=== PATIENT | female | born 1945 | race Caucasian/White ===

== ENCOUNTER 2020-08-17 08:38 | Outpatient (REF) | payer MEDICARE, SELFPAY ==
[2020-08-17 10:09] LABS: MANUAL DIFF FLAG NO
[2020-08-17 10:16] LABS: Basophils Absolute Auto 0.1 X10*3/uL (0.0-0.2); Basophils Percent Auto 1.2 % (0-2); Eosinophils Absolute Auto 0.2 X10*3/uL (0.0-0.4); Hematocrit 36.5 % (37-47); Hemoglobin 11.8 g/dl (12.0-16.0); Imm Gran Abs Auto 0.01 X10*3/uL (0.00-0.03); Imm Gran Pct Auto 0.2 % (0.0-0.4); Lymphocytes Absolute Auto 1.7 X10*3/uL (1.2-4.9); Lymphocytes Percent Auto 33.9 % (20-40); Mean Corpuscular HGB Conc 32.3 g/dl (31.0-35.0); Mean Corpuscular Hemoglobin 30.7 pg (27.0-33.0); Mean Corpuscular Volume 95.1 fL (80-98); Mean Platelet Volume 10.4 fL (9.4-12.3); Monocytes Absolute Auto 0.3 X10*3/uL (0.1-1.2); Monocytes Percent Auto 6.5 % (2-11); Neutrophils Absolute Auto 2.7 X10*3/uL (2.0-8.3); Neutrophils Percent Auto 54.2 % (45-73); Platelet Count 192 X10*3/uL (160-400); Red Blood Count 3.84 X10*6/uL (4.20-5.50); Red Cell Distribution Width 13.5 % (11.0-16.0)
[2020-08-17 10:45] LABS: Alanine Aminotransferase 22 U/L (0-31); Albumin Level 4.2 g/dL (3.5-5.0); Alkaline Phosphatase 71 U/L (39-117); Anion Gap 13 (12-20); Aspartate Amino Transferase 25 U/L (5-31); Bilirubin Total 0.4 mg/dL (0.0-1.0); Blood Urea Nitrogen 22 mg/dL (9-16); Calcium 8.9 mg/dL (8.4-10.2); Carbon Dioxide 29 mmol/L (22-29); Chloride 104 mmol/L (96-108); Cholesterol 239 mg/dL; Estimated Glomerular Filt Rate > 60; Glucose Fasting 103 mg/dL (60-99); HDL Cholesterol 50 mg/dL; LDL Cholesterol Calculated 151 mg/dl; Potassium 4.5 mmol/l (3.3-5.1); Sodium 141 mmol/L (135-145); Total Protein 6.9 g/dL (6.5-8.0); Triglycerides 194 mg/dL
[2020-08-17 12:10] LABS: Creatinine Urine 63.84 mg/dL; Microalbumin Urine < 5.0 mg/L
== END 2020-08-17 08:39 | disposition home or self-care (01) ==
LOC: HO.LAB 08:38
PROVIDERS: PCP Internal Medicine; Visit Provider Internal Medicine
DX: E78.00 Pure hypercholesterolemia, unspecified (principal); E11.9 Type 2 diabetes mellitus without complications; R59.1 Generalized enlarged lymph nodes
CPT/HCPCS: 36415; 80053; 80061; 82043; 85025

== ENCOUNTER 2020-08-25 09:03 | Outpatient (REF) | payer MEDICARE, SELFPAY | END 2020-08-25 09:04 | disposition home or self-care (01) | LOC: HO.LAB 09:03 | PROVIDERS: PCP Internal Medicine; Visit Provider Internal Medicine | DX: Z20.828 Contact with and (suspected) exposure to other viral communicable diseases (principal) | CPT/HCPCS: 87635 ==

== ENCOUNTER 2020-11-22 10:43 | Outpatient (REF) | payer MEDICARE, SELFPAY ==
[2020-11-22 12:19] LABS: Alanine Aminotransferase 28 U/L (0-31); Albumin Level 4.5 g/dL (3.5-5.0); Alkaline Phosphatase 71 U/L (39-117); Anion Gap 14 (12-20); Aspartate Amino Transferase 28 U/L (5-31); Bilirubin Total 0.4 mg/dL (0.0-1.0); Blood Urea Nitrogen 16 mg/dL (9-16); Calcium 9.4 mg/dL (8.4-10.2); Carbon Dioxide 30 mmol/L (22-29); Chloride 102 mmol/L (96-108); Cholesterol 190 mg/dL; Estimated Glomerular Filt Rate > 60; Glucose Fasting 98 mg/dL (60-99); HDL Cholesterol 50 mg/dL; LDL Cholesterol Calculated 98 mg/dl; Potassium 5.1 mmol/l (3.3-5.1); Sodium 141 mmol/L (135-145); Total Protein 7.3 g/dL (6.5-8.0); Triglycerides 210 mg/dL
== END 2020-11-22 10:44 | disposition home or self-care (01) ==
LOC: HO.LAB 10:43
PROVIDERS: Visit Provider Internal Medicine
DX: E11.9 Type 2 diabetes mellitus without complications (principal); D64.9 Anemia, unspecified
CPT/HCPCS: 36415; 80053; 80061

== ENCOUNTER 2020-11-24 07:51 | Outpatient (REF) | payer MEDICARE, SELFPAY | END 2020-11-24 07:52 | disposition home or self-care (01) | LOC: HO.LAB 07:51 | PROVIDERS: PCP Internal Medicine; Visit Provider Internal Medicine | DX: Z20.822 Contact with and (suspected) exposure to COVID-19 (principal) | CPT/HCPCS: 36415; C9803; U0003 ==

== ENCOUNTER 2021-02-02 09:23 | Outpatient (REF) | payer MEDICARE, SELFPAY ==
[2021-02-02 12:15] LABS: SARS COV2 PCR INHOUSE NEGATIVE (Negative)
== END 2021-02-02 09:24 | disposition home or self-care (01) ==
LOC: HO.LAB 09:23
PROVIDERS: Visit Provider Internal Medicine
DX: Z20.822 Contact with and (suspected) exposure to COVID-19 (principal)
CPT/HCPCS: C9803; U0003

== ENCOUNTER 2021-03-28 07:27 | Outpatient (REF) | payer MEDICARE, SELFPAY ==
[2021-03-28 08:24] LABS: MANUAL DIFF FLAG NO
[2021-03-28 08:36] LABS: Eosinophils Absolute Auto 0.3 X10*3/uL (0.0-0.4); Eosinophils Percent Auto 6.5 % (0-4); Hemoglobin 11.5 g/dl (12.0-16.0); Imm Gran Abs Auto 0.01 X10*3/uL (0.00-0.03); Imm Gran Pct Auto 0.2 % (0.0-0.4); Immature Retic Fraction 14.7 % (3.0-15.9); Lymphocytes Absolute Auto 1.3 X10*3/uL (1.2-4.9); Lymphocytes Percent Auto 32.6 % (20-40); Mean Corpuscular HGB Conc 31.9 g/dl (31.0-35.0); Mean Corpuscular Hemoglobin 30.5 pg (27.0-33.0); Mean Corpuscular Volume 95.5 fL (80-98); Monocytes Absolute Auto 0.3 X10*3/uL (0.1-1.2); Monocytes Percent Auto 8.5 % (2-11); Neutrophils Absolute Auto 2.1 X10*3/uL (2.0-8.3); Neutrophils Percent Auto 51.2 % (45-73); Platelet Count 177 X10*3/uL (160-400); Red Blood Count 3.77 X10*6/uL (4.20-5.50); Red Cell Distribution Width 13.3 % (11.0-16.0); Retic HGB Equivalent 34.4 pg (30.0-35.0); Reticulocyte Percent 1.9 % (0.5-1.8); Reticulocytes Absolute 0.071 X10*6/uL (0.026-0.095)
[2021-03-28 08:46] LABS: Microalbum/Creatinine Ratio Ur 9.8 ug/mg cr
[2021-03-28 09:02] LABS: Alanine Aminotransferase 25 U/L (0-31); Albumin Level 4.3 g/dL (3.5-5.0); Alkaline Phosphatase 73 U/L (39-117); Anion Gap 11 (12-20); Aspartate Amino Transferase 24 U/L (5-31); Bilirubin Total 0.5 mg/dL (0.0-1.0); Blood Urea Nitrogen 14 mg/dL (9-16); Calcium 9.1 mg/dL (8.4-10.2); Carbon Dioxide 30 mmol/L (22-29); Chloride 103 mmol/L (96-108); Cholesterol 177 mg/dL; Estimated Glomerular Filt Rate > 60; Glucose Fasting 106 mg/dL (60-99); HDL Cholesterol 48 mg/dL; Iron 71 mcg/dL (30-160); LDL Cholesterol Calculated 83 mg/dl; Lactate Dehydrogenase 177 U/L (122-220); Percent Iron Saturation 20 % (15-50); Potassium 4.7 mmol/L (3.3-5.1); Sodium 139 mmol/L (135-145); Total Iron Binding Capacity 356 mcg/dL (228-428); Total Protein 7.1 g/dL (6.5-8.0); Triglycerides 230 mg/dL; Unsaturated Iron Binding 285 ug/dL
[2021-03-28 10:15] LABS: Folate 14.4 ng/mL (> or = 4.0); Vitamin B12 1208 pg/mL (200-900)
[2021-03-31 20:06] LABS: Haptoglobin 196 mg/dL (43-212)
== END 2021-03-28 07:28 | disposition home or self-care (01) ==
LOC: HO.LAB 07:27
PROVIDERS: PCP Internal Medicine; Visit Provider Internal Medicine
DX: D64.9 Anemia, unspecified (principal); E11.9 Type 2 diabetes mellitus without complications; E78.5 Hyperlipidemia, unspecified; E78.00 Pure hypercholesterolemia, unspecified
CPT/HCPCS: 36415; 80053; 80061; 82043; 82607; 82746; 83010; 83540; 83615; 85025; 85045

== ENCOUNTER → 2021-04-10 07:35 | Outpatient (REF) | payer MEDICARE, SELFPAY ==
--- NOTE | 2021-04-10 07:42 | ECG_ITS ---
Test Reason : HTN Blood Pressure : / mmHG Vent. Rate : 083 BPM Atrial Rate : 083 BPM P-R Int : 122 ms QRS Dur : 086 ms QT Int : 388 ms P-R-T Axes : 067 005 054 degrees QTc Int : 455 ms Normal sinus rhythm Normal ECG When compared with ECG of 25-NOV-2018 05:42, T wave inversion no longer evident in Inferior leads Referred By: Kristyn Pardo Electronically Signed By:SAMY GALLO MD
== END ==
LOC: HO.CARD 07:35
PROVIDERS: PCP Internal Medicine; Visit Provider Internal Medicine
DX: I10 Essential (primary) hypertension (principal)
CPT/HCPCS: 93005

== ENCOUNTER 2021-05-16 11:56 | Outpatient (REF) | payer MEDICARE, SELFPAY ==
--- NOTE | ~2021-05-16 | MM_ITS ---
EXAMINATION: MM SCREENING DIGITAL BREAST TOMOSYNTHESIS, BILATERAL CLINICAL INFORMATION: Screening. Asymptomatic. Remote prior right breast surgery. The lifetime risk of breast cancer based on the Tyrer-Cuzick Model is 4%. COMPARISON: Mammography: 09/17/2018, 07/04/2017, 06/01/2016 TECHNIQUE: Digital breast tomosynthesis is performed in both the craniocaudal and mediolateral oblique views along with computer-aided detection (CAD). Synthesized 2D images are generated from the tomosynthesis. FINDINGS: There are scattered areas of fibroglandular density (ACR BI-RADS breast composition Category b). Breast tissue composition borders on predominantly fatty. Background stromal and fibroglandular densities are stable. Again, there is some minor superficial scarring upper outer quadrant right breast. There is no developing density or interval mass or architectural abnormality or abnormal calcifications. The axilla and skin contours are unremarkable. No significant changes. MM/MM tomosynthesis screening BI IMPRESSION: No significant changes from prior exams. ASSESSMENT: BI-RADS 2: Benign RECOMMENDATION: Routine annual mammography screening. This patient's information was entered into a reminder system with a target due date for their next mammogram.
--- NOTE | ~2021-05-16 | MM_ITS ---
EXAMINATION: BONE DENSITOMETRY CLINICAL INDICATION: Osteoporosis. COMPARISON: Baseline BD dated 06/02/2007. TECHNIQUE: Using a [employer] DXA System (software version: 13.1) manufactured by [employer], dual-energy x-ray absorptiometry was performed of the lumbar spine and left hip. The images are of good technical quality. Summary results are attached. FINDINGS: AP SPINE L1-L4: Current: BMD 1.194 g/cm2, Z-score 1.5, T-score 0.1, normal, 12.2% increase from baseline (<5% change is not significant). Baseline: BMD 1.064 g/cm2. LEFT FEMUR, NECK: Current: BMD 0.826 g/cm2, Z-score 0.1, T-score -1.5, osteopenia. Baseline: BMD 0.843 g/cm2. LEFT FEMUR, TOTAL: Current: BMD 0.992 g/cm2, Z-score 1.3, T-score -0.1, normal, 5.5% increase from baseline (<5% change is not significant). Baseline: BMD 0.940 g/cm2. IDENTIFIED RISK FACTORS: Menopause, hysterectomy, osteoporosis, rheumatoid arthritis, history of fracture (adult), height loss. HISTORY OF FRACTURE: Knee. MEDICATIONS: Vitamin D. MM/XR DEXA axial skeleton IMPRESSION: 1. DIAGNOSIS: Osteopenia based on the lowest T-score value of -1.5 in the femoral neck applying World Health Organization criteria. 2. 10-YEAR FRACTURE RISK PREDICTION, FRAX: Major osteoporotic fracture (clinical spine, forearm, hip or shoulder) 12.0%. Hip fracture 2.3%. 3. Treatment Recommendations: NOF guidelines recommend consideration for treatment in postmenopausal women and men age 50 and older presenting with the following: -A hip or vertebral (clinical or morphometric) fracture. -T-score less than or equal to -2.5 at the femoral neck or spine after appropriate evaluation to exclude secondary causes. -Low bone mass at the hip or spine and a 10-year fracture probability by FRAX of greater than or equal to 3% for hip fracture or greater than or equal to 20% for major osteoporotic fracture based on the [place] adapted WHO algorithm. 4. Other Recommendations: All treatment decisions require clinical judgment and consideration of individual patient factors, including patient preferences, comorbidities, previous drug use, risk factors not captured in the FRAX model (e.g. frailty, falls, vitamin D deficiency, increased bone turnover, interval significant decline in bone density) and possible under or overestimation of fracture risk by FRAX. Additional medical evaluation for secondary cause of low bone mineral density may be appropriate. FUTURE SCAN RECOMMENDATION: People with diagnosed cases of osteoporosis or at high risk for fracture should have regular bone mineral density tests. For patients eligible for Medicare, routine testing is allowed once every 2 years. The testing frequency can be increased to one year for patients who have rapidly progressing disease, those who are receiving or discontinuing medical therapy to restore bone mass, or have additional risk factors.
== END 2021-05-16 11:57 | disposition home or self-care (01) ==
LOC: HO.MAMMO 11:56
PROVIDERS: Visit Provider Internal Medicine
DX: Z12.31 Encounter for screening mammogram for malignant neoplasm of breast (principal); Z13.820 Encounter for screening for osteoporosis; M81.0 Age-related osteoporosis without current pathological fracture; M85.80 Other specified disorders of bone density and structure, unspecified site; M06.9 Rheumatoid arthritis, unspecified; Z78.0 Asymptomatic menopausal state; Z98.890 Other specified postprocedural states; Z87.81 Personal history of (healed) traumatic fracture; Z79.899 Other long term (current) drug therapy
CPT/HCPCS: 77063; 77067; 77080

== ENCOUNTER 2021-06-05 07:42 | Outpatient (REF) | payer MEDICARE, SELFPAY | END 2021-06-05 07:43 | disposition home or self-care (01) | LOC: HO.LAB 07:42 | PROVIDERS: PCP Internal Medicine; Visit Provider Internal Medicine | DX: Z20.822 Contact with and (suspected) exposure to COVID-19 (principal) | CPT/HCPCS: C9803; U0003; U0005 ==

== ENCOUNTER 2021-07-21 07:14 | Outpatient (REF) | payer MEDICARE, SELFPAY ==
[2021-07-21 09:35] LABS: Creatinine Urine 86.93 mg/dL
[2021-07-21 10:00] LABS: Alanine Aminotransferase 28 U/L (0-31); Albumin Level 4.2 g/dL (3.5-5.0); Alkaline Phosphatase 60 U/L (39-117); Anion Gap 12 (12-20); Aspartate Amino Transferase 32 U/L (5-31); Bilirubin Total 0.5 mg/dL (0.0-1.0); Blood Urea Nitrogen 18 mg/dL (9-16); Calcium 9.2 mg/dL (8.4-10.2); Carbon Dioxide 30 mmol/L (22-29); Chloride 104 mmol/L (96-108); Cholesterol 181 mg/dL; Estimated Glomerular Filt Rate > 60; Glucose Fasting 110 mg/dL (60-99); HDL Cholesterol 55 mg/dL; LDL Cholesterol Calculated 106 mg/dl; Sodium 141 mmol/L (135-145); Total Protein 6.7 g/dL (6.5-8.0); Triglycerides 101 mg/dL
[2021-07-30 12:42] LABS: Vitamin D 25-OH, D2 <4 ng/mL; Vitamin D 25-OH, D3 49 ng/mL; Vitamin D 25-OH, Total 49 ng/mL (30-100)
== END 2021-07-21 07:15 | disposition home or self-care (01) ==
LOC: HO.LAB 07:14
PROVIDERS: PCP Internal Medicine; Visit Provider Internal Medicine
DX: E11.9 Type 2 diabetes mellitus without complications (principal); E78.5 Hyperlipidemia, unspecified; E55.9 Vitamin D deficiency, unspecified
CPT/HCPCS: 36415; 80053; 80061; 82043; 82306

== ENCOUNTER 2021-08-23 07:22 | Outpatient (REF) | payer MEDICARE, SELFPAY ==
--- NOTE | ~2021-08-23 | CT_ITS ---
EXAMINATION: CT HEAD WITHOUT CONTRAST CLINICAL INFORMATION: Headache. COMPARISON: CT brain 10/04/2015. TECHNIQUE: Contiguous axial imaging was performed from the skull base to vertex without intravenous administration of contrast. This CT examination was performed using dose optimization techniques as appropriate, variously including the following: *Automated exposure control *Adjustment of mA and/or kV according to patient size (this includes techniques or standardized protocols for targeted exams where dose is matched to indication/reason for exam; i.e. extremities or head) *Use of iterative reconstruction technique DLP: 709 mGy-cm. FINDINGS: There is no evidence of acute intracranial hemorrhage or territorial infarction. No abnormal mass effect or midline shift is seen. Monk to white matter differentiation is well preserved. No extra-axial fluid collections are identified. The ventricles are normal in size. There is no abnormal attenuation within the brain parenchyma. The osseous structures and soft tissues are normal. There is mild mucoperiosteal thickening bilateral sphenoid sinuses. The rest of the paranasal sinuses and mastoid air cells are well aerated. CT/CT head/brain wo con IMPRESSION: No acute intracranial process seen. Bilateral chronic sphenoid sinusitis.
== END 2021-08-23 07:23 | disposition home or self-care (01) ==
LOC: HO.CT 07:22
PROVIDERS: Visit Provider Internal Medicine
DX: R51.9 Headache, unspecified (principal); G81.94 Hemiplegia, unspecified affecting left nondominant side
CPT/HCPCS: 70450

== ENCOUNTER 2022-03-09 08:59 | Emergency (ER) | payer MEDICARE, SELFPAY ==
--- NOTE | ~2022-03-09 | XR_ITS ---
EXAMINATION: XR CHEST CLINICAL INFORMATION: Chest pain. COMPARISON: 01/05/2020 chest radiographs. TECHNIQUE: Frontal view of the chest was obtained. FINDINGS: No significant abnormality is noted involving the heart, lungs, mediastinum, bony thorax or soft tissues. XR/XR chest 1V IMPRESSION: No acute cardiopulmonary process.
--- NOTE | 2022-03-09 09:04 | ECG_ITS ---
Test Reason : chest pain Blood Pressure : / mmHG Vent. Rate : 091 BPM Atrial Rate : 091 BPM P-R Int : 124 ms QRS Dur : 088 ms QT Int : 362 ms P-R-T Axes : 057 -26 036 degrees QTc Int : 445 ms Normal sinus rhythm Normal ECG When compared with ECG of 10-APR-2021 07:46, No significant change was found Referred By: Generic ED Physician Electronically Signed By:SAMY GALLO MD
[2022-03-09 09:08] VITALS: BP 136/65; PULSE 91; RESP 17; TEMP 36.4; O2SAT 100; BMI 31.4
[2022-03-09 09:19] LABS: MANUAL DIFF FLAG NO
[2022-03-09 09:29] LABS: Eosinophils Absolute Auto 0.2 X10*3/uL (0.0-0.4); Eosinophils Percent Auto 3.7 % (0-4); Hematocrit 37.7 % (37.0-47.0); Hemoglobin 12.2 g/dl (12.0-16.0); Imm Gran Abs Auto 0.01 X10*3/uL (0.00-0.03); Imm Gran Pct Auto 0.2 % (0.0-0.4); Lymphocytes Absolute Auto 1.4 X10*3/uL (1.2-4.9); Lymphocytes Percent Auto 33.8 % (20-40); Mean Corpuscular HGB Conc 32.4 g/dl (31.0-35.0); Mean Corpuscular Volume 95.9 fL (80.0-98.0); Monocytes Absolute Auto 0.3 X10*3/uL (0.1-1.2); Monocytes Percent Auto 7.8 % (2-11); Neutrophils Absolute Auto 2.2 x10*3/uL (2.0-8.3); Neutrophils Percent Auto 53.5 % (45-73); Platelet Count 178 X10*3/uL (160-400); Red Blood Count 3.93 X10*6/uL (4.20-5.50); Red Cell Distribution Width 13.2 % (11.0-16.0); White Blood Count 4.1 X10*3/uL (4.8-10.8)
[2022-03-09 09:37] VITALS: BP 149/77; PULSE 89; RESP 14; TEMP 36.7; O2SAT 100
[2022-03-09 09:38] LABS: Anion Gap 12 (12-20); Blood Urea Nitrogen 14 mg/dL (9-16); Calcium 9.6 mg/dL (8.4-10.2); Carbon Dioxide 30 mmol/L (22-29); Chloride 105 mmol/L (96-108); Estimated Glomerular Filt Rate > 60; Glucose Random 104 mg/dL (60-115); Potassium 4.8 mmol/L (3.3-5.1); Sodium 142 mmol/L (135-145)
[2022-03-09 09:39] LABS: Troponin-I High Sensitivity < 3.5 ng/L (<3.5-17.0)
--- NOTE | 2022-03-09 10:32 | ED_ITS ---
HPI - General Adult General Chief complaint: General Medical Stated complaint: Chest pain/hand numbness Time Seen by Provider: 03/09/22 10:28 History of Present Illness HPI narrative: Patient is a 77-year-old female presents today with having chest pain shortness of breath generalized malaise tingling bilateral hands pain in the lower jaw patient has a history diabetes history of high cholesterol no history of ME no history of stroke does not smoke no hypertension patient claims that she has been under lot of stress. Feels very tearful. Patient is from home. No leg swelling. No history of blood clots. No coughing or congestion no upper respiratory symptoms. No diaphoresis. History of similar episodes. History depression compliant with medications Related Data Previous Rx's Medication Instructions Recorded simvastatin 80 mg tablet 80 mg PO BEDTIME #90 tab 03/16/21 lisinopril 2.5 mg tablet 2.5 mg PO DAILY #90 tab 08/24/21 metformin 500 mg tablet,extended 500 mg PO BEDTIME #90 tab 09/23/21 release 24 hr venlafaxine 50 mg tablet 50 mg PO BID #180 tab 10/17/21 blood sugar diagnostic (FreeStyle 1 strip MISCELLANEOUS BID 30 Days 10/22/21 Lite Strips) #50 strip Allergies Allergy/AdvReac Type Severity Reaction Status Date / Time naproxen [NAPROXEN] Allergy Severe ANGIOEDEMA, Verified 08/08/21 09:58 rash,swelling,SOB atorvastatin Allergy Intermediate rash Verified 08/08/21 09:58 penicillin G [Penicillin G] Allergy Intermediate RASH Verified 08/08/21 09:58 tramadol Allergy Intermediate vomiting, Verified 08/08/21 09:58 headaches Review of Systems Review of Systems: Positive tingling sensation to lower lips Positive chest pain Yes all other systems are reviewed and are negative [facility] Past Medical History Attestation statement: The following information was validated with the patient. Medical History Current mild episode of major depressive disorder Diabetes mellitus Essential hypertension Headache Left hemiplegia Normocytic anemia Osteopenia Osteoporosis Pure hypercholesterolemia Surgical History History of breast biopsy History of total abdominal hysterectomy Family History Family History Father CVD (cardiovascular disease) Mother CVD (cardiovascular disease) Maternal Aunt Breast cancer Sister Hypertension Son Asthma Son Bipolar 1 disorder Sister Diabetes Social History Social History Housing: Apartment Alcohol intake: former Patient Tobacco Use Status: Never used Tobacco Tobacco use type: Cigarette e-Cigarette/Vaping Use: Never Used Second Hand Smoke Exposure: No Advance Directives: Yes Advance Directives Information Provided: Yes Advance Directives on File: No service: No Current occupational status: retired Physical Exam ED Vital Signs: Vital Signs - 24 hr 03/09/22 09:08 03/09/22 09:37 03/09/22 11:45 Temperature 97.6 F 98.1 F Pulse Rate 91 89 80 Respiratory Rate 17 14 12 Blood Pressure 136/65 149/77 H 150/66 H Pulse Oximetry 100 100 97 BMI result Body Mass Index 31.4 Appearance: Alert. Oriented X3. No acute distress. Eyes: Pupils equal, round and reactive to light. ENT: Pharynx normal. Neck: Normal inspection. Neck supple. No lymph nodes noted. No crepitus CVS: Normal heart rate and rhythm. Pulses normal. Normal S1 and S2 Respiratory: No respiratory distress. Breath sounds normal. No Wheezing. No rales Abdomen: Soft and nontender. No rigidity. No distention. good BS x4 Skin: Skin warm and dry. Normal skin color. Normal skin turgor. Extremities: No lower extremity edema. Neurovascular intact to all extremities. No Lacerations. No Rash Neuro: Oriented X 3. No motor deficit. No sensory deficit. Moving all extermities. No slurred speech Medical Decision Making MDM Narrative Medical decision making narrative: Patient EKG showed a sinus pattern heart rate was 90 OR cures QT within normal limits is no acute ST segment elevation. She does have multiple cardiac risk factors. Her electrolytes are normal. Her troponin is less than 3.5. Will get a 2nd set of heart enzymes. No risk for pulmonary emboli. Question anxiety will go ahead and give and event. Chest x-ray showed no focal infiltrate no pneumonia no pneumothorax. 132nd set of cardiac enzymes are negative. Patient's symptoms less likely cardiac in origin more likely secondary to anxiety. The hemoglobin is normal. No evidence for anemia. Will discharge patient home. Medical Records Medical records reviewed: Yes I reviewed the patient's medical records. Lab Data Result diagrams: 03/09/22 09:14 03/09/22 09:14 Labs: Lab Results 03/09/22 03/09/22 03/09/22 Range/Units 09:14 09:14 09:14 WBC 4.1 L (4.8-10.8) X10*3/uL RBC 3.93 L (4.20-5.50) X10*6/uL Hgb 12.2 (12.0-16.0) g/dl Hct 37.7 (37.0-47.0) % MCV 95.9 (80.0-98.0) fL MCH 31.0 (27.0-33.0) pg MCHC 32.4 (31.0-35.0) g/dl RDW 13.2 (11.0-16.0) % Plt Count 178 (160-400) X10*3/uL MPV 10.0 (9.4-12.3) fL Immature Gran % (Auto) 0.2 (0.0-0.4) % Neut % (Auto) 53.5 (45-73) % Lymph % (Auto) 33.8 (20-40) % [place] % (Auto) 7.8 (2-11) % Eos % (Auto) 3.7 (0-4) % Baso % (Auto) 1.0 (0-2) % Lymph # (Auto) 1.4 (1.2-4.9) X10*3/uL [place] # (Auto) 0.3 (0.1-1.2) X10*3/uL Eos # (Auto) 0.2 (0.0-0.4) X10*3/uL Baso # (Auto) 0.0 (0.0-0.2) X10*3/uL Abs Immat Gran (auto) 0.01 (0.00-0.03) X10*3/uL Absolute Neuts (auto) 2.2 (2.0-8.3) x10*3/uL Absolute Nucleated RBC 0.000 (0.0-0.012) X10*3/uL Nucleated RBC % (auto) 0.0 (0.0-0.2) /100WBC Sodium 142 (135-145) mmol/L Potassium 4.8 (3.3-5.1) mmol/L Chloride 105 (96-108) mmol/L Carbon Dioxide 30 H (22-29) mmol/L Anion Gap 12 (12-20) BUN 14 (9-16) mg/dL Creatinine 0.77 (0.5-1.4) mg/dL Estim Creat Clear Calc 61.0 Estimated GFR > 60 Random Glucose 104 (60-115) mg/dL Calcium 9.6 (8.4-10.2) mg/dL Troponin I High Sens < 3.5 (<3.5-17.0) ng/L 03/09/22 Range/Units 13:00 WBC (4.8-10.8) X10*3/uL RBC (4.20-5.50) X10*6/uL Hgb (12.0-16.0) g/dl Hct (37.0-47.0) % MCV (80.0-98.0) fL MCH (27.0-33.0) pg MCHC (31.0-35.0) g/dl RDW (11.0-16.0) % Plt Count (160-400) X10*3/uL MPV (9.4-12.3) fL Immature Gran % (Auto) (0.0-0.4) % Neut % (Auto) (45-73) % Lymph % (Auto) (20-40) % [place] % (Auto) (2-11) % Eos % (Auto) (0-4) % Baso % (Auto) (0-2) % Lymph # (Auto) (1.2-4.9) X10*3/uL [place] # (Auto) (0.1-1.2) X10*3/uL Eos # (Auto) (0.0-0.4) X10*3/uL Baso # (Auto) (0.0-0.2) X10*3/uL Abs Immat Gran (auto) (0.00-0.03) X10*3/uL Absolute Neuts (auto) (2.0-8.3) x10*3/uL Absolute Nucleated RBC (0.0-0.012) X10*3/uL Nucleated RBC % (auto) (0.0-0.2) /100WBC Sodium (135-145) mmol/L Potassium (3.3-5.1) mmol/L Chloride (96-108) mmol/L Carbon Dioxide (22-29) mmol/L Anion Gap (12-20) BUN (9-16) mg/dL Creatinine (0.5-1.4) mg/dL Estim Creat Clear Calc Estimated GFR Random Glucose (60-115) mg/dL Calcium (8.4-10.2) mg/dL Troponin I High Sens < 3.5 (<3.5-17.0) ng/L Discharge Plan Discharge Clinical Impression: Chest pain, Anxiety Patient Disposition: Home, Self-Care Instructions: Chest Pain (DC), Anxiety (ED) Prescriptions: No Action simvastatin 80 mg tablet 80 mg PO BEDTIME Qty: 90 1RF lisinopril 2.5 mg tablet 2.5 mg PO DAILY Qty: 90 3RF metformin 500 mg tablet extended release 24 hr 500 mg PO BEDTIME Qty: 90 1RF venlafaxine 50 mg tablet 50 mg PO BID Qty: 180 3RF FreeStyle Lite Strips Strip 1 strip miscellaneous BID 30 Days Qty: 50 11RF Referrals: Briseyda Kramer MD [Primary Care Provider] -
[2022-03-09 11:45] VITALS: BP 150/66; PULSE 80; RESP 12; O2SAT 97
--- NOTE | 2022-03-09 12:03 | PC.NURSE ---
Patient reused Lorazepam IV push-patient reports she would not be able to drive home if she takes it. Provider notified.
--- NOTE | 2022-03-09 13:24 | PC.NURSE ---
Patient reports a mild headache and requesting Tylenol 650 mg-provider notified.
[2022-03-09 13:29] LABS: Troponin-I High Sensitivity < 3.5 ng/L (<3.5-17.0)
[2022-03-09 13:44] VITALS: BP 143/69; PULSE 89; RESP 16; TEMP 36.9; O2SAT 98
[2022-03-09] MEDS: Acetaminophen 325 MG TABLET 975 MG PO (13:45)
== END 2022-03-09 13:50 | disposition home or self-care (01) ==
PROVIDERS: Emergency Provider Emergency Medicine Emergency Medical Services; PCP Internal Medicine
DX: R07.9 Chest pain, unspecified (principal); F41.9 Anxiety disorder, unspecified; E11.9 Type 2 diabetes mellitus without complications; I10 Essential (primary) hypertension
CPT/HCPCS: 36415; 71045; 80048; 84484; 85025; 93005; 96374; 99284; 99285

== ENCOUNTER 2022-04-05 06:57 | Outpatient (REF) | payer MEDICARE, SELFPAY ==
[2022-04-05 11:43] LABS: Alanine Aminotransferase 25 U/L (0-31); Aspartate Amino Transferase 27 U/L (5-31); Cholesterol 174 mg/dL; HDL Cholesterol 48 mg/dL; LDL Cholesterol Calculated 89 mg/dl; Triglycerides 185 mg/dL
[2022-04-05 12:12] LABS: TSH reflex Free T4 2.13 uIU/mL (0.32-4.0); Vitamin D 25-OH Total 33.3 ng/mL (>30)
== END 2022-04-05 06:58 | disposition home or self-care (01) ==
LOC: HO.HMGCLDS 06:57
PROVIDERS: PCP Internal Medicine; Visit Provider Internal Medicine
DX: E78.5 Hyperlipidemia, unspecified (principal); M85.852 Other specified disorders of bone density and structure, left thigh; N95.9 Unspecified menopausal and perimenopausal disorder; E11.9 Type 2 diabetes mellitus without complications
CPT/HCPCS: 36415; 80061; 82306; 84443; 84450; 84460

== ENCOUNTER 2022-05-28 07:23 | Outpatient (REF) | payer MEDICARE, SELFPAY ==
--- NOTE | ~2022-05-28 | MM_ITS ---
EXAMINATION: MM SCREENING DIGITAL BREAST TOMOSYNTHESIS, BILATERAL CLINICAL INFORMATION: Screening. Asymptomatic. The lifetime risk of breast cancer based on the Tyrer-Cuzick Model is 3%. COMPARISON: Mammography: 05/16/2021, 09/17/2018, 07/04/2017 TECHNIQUE: Digital breast tomosynthesis is performed in both the craniocaudal and mediolateral oblique views along with computer-aided detection (CAD). Synthesized 2D images are generated from the tomosynthesis. FINDINGS: There are scattered areas of fibroglandular density (ACR BI-RADS breast composition Category b). There are no significant masses, abnormal calcifications, or other abnormalities. Breast tissue composition borders on predominantly fatty. Background stromal markings are normal and similar to prior exams. The axilla are unremarkable. No significant changes. MM/MM tomosynthesis screening BI IMPRESSION: No mammographic evidence of malignancy. ASSESSMENT: BI-RADS 1: Negative RECOMMENDATION: Routine annual mammography screening. This patient's information was entered into a reminder system with a target due date for their next mammogram.
== END 2022-05-28 07:24 | disposition home or self-care (01) ==
LOC: HO.MAMMO 07:23
PROVIDERS: PCP Internal Medicine; Visit Provider Internal Medicine
DX: Z12.31 Encounter for screening mammogram for malignant neoplasm of breast (principal)
CPT/HCPCS: 77063; 77067

== ENCOUNTER → 2022-06-14 07:09 | Outpatient (BNVA) | payer MEDICARE, SELFPAY | PROVIDERS: PCP Internal Medicine; Referring Provider Internal Medicine; Visit Provider Physician Assistant | DX: Z01.818 Encounter for other preprocedural examination (principal) | CPT/HCPCS: 99212; Q3014 ==

== ENCOUNTER → 2022-07-11 12:48 | Outpatient (BNVA) | payer MEDICARE, SELFPAY | PROVIDERS: PCP Internal Medicine; Referring Provider Internal Medicine; Visit Provider Internal Medicine | DX: R07.2 Precordial pain (principal); E78.5 Hyperlipidemia, unspecified; E11.9 Type 2 diabetes mellitus without complications | CPT/HCPCS: 93005; 99202 ==

== ENCOUNTER → 2022-07-31 07:42 | Outpatient (REF) | payer MEDICARE, SELFPAY ==
--- NOTE | 2022-07-31 07:45 | CA_ITS ---
Transthoracic Echocardiogram Patient (Last, First, Middle): Indira Mckeon, Gender: Female Date of : 1945 Age: 77 Procedure Date: 07/31/2022 Procedure Type: Transthoracic Echocardiogram Location: OP Height: 157.48 cm Weight: 79.38 kg BSA: 1.81 m2 Heart Rate: 70 bpm BP: 122 / 64 mmHg Senior Quality Methods Specialist: SB Referring MD: Lee Short MD Symptoms: R07.2 - Precordial pain Study Quality: Adequate w contrast ECG Rhythm: Sinus Conclusions: - The left ventricular systolic function is normal. The visually estimated ejection fraction is between 55-60%. - There is moderate septal asymmetric hypertrophy. - There is mild mitral valve regurgitation. - There is mild tricuspid valve regurgitation. Findings Procedure Information Contrast agent, definity, is being given per protocol without apparent complications. Left Ventricle Normal left ventricular cavity size. There is mildly increased left ventricular wall thickness. The left ventricular systolic function is normal. The visually estimated ejection fraction is between 55-60%. There is no evidence of regional wall motion abnormalities. Diastolic function is normal for age. There is moderate septal asymmetric hypertrophy. Right Ventricle Normal right ventricular cavity size and systolic function. Atria Both atria are normal in size. Aortic Valve There is a normal trileaflet aortic valve. There is no aortic valve stenosis. There is no aortic valve regurgitation. Mitral Valve The mitral valve appears normal. There is mild mitral valve regurgitation. There is no mitral valve stenosis. Pulmonic Valve The pulmonic valve was not well visualized. There is mild pulmonic valve regurgitation. Tricuspid Valve Normal tricuspid valve structure. There is mild tricuspid valve regurgitation. There is no evidence of pulmonary hypertension. Great Vessels The asc aorta is normal in size. Venous The inferior vena cava is normal in size and collapses greater than 50% with inspiration. Pericardium/Pleural There is no evidence of pericardial effusion. Prior Study Comparison No prior study available for comparison. Measurements 2D Linear Measurements IVSd: 1.37 0.6-0.9/0.6-1.0 cm LVIDd: 4.41 3.9-5.3/4.2-5.9 cm LVIDd Index: 2.44 2.4-3.2/2.2-3.1 cm/m2 LVIDs: 3.22 2.0-3.6 cm LVPWd: 1.05 0.7-1.1 cm LA Diam: 3.90 2.7-3.8/3.0-4.0 cm LAIDs Index: 2.15 1.5-2.3 cm/m2 LV Mass: 242.16 67-162/88-224 g LV Mass Index: 133.79 43-95/49-115 g/m2 LVOT Diam: 2.20 3.0+(-)1.3 cm 2D Systolic Function EF 4C: 55.20 >55% EF 2C: 47.90 >55% EF BiP: 53.10 >55% Mitral Valve MV Pk E: 0.58 MV PK A: 0.92 MV Decel Time: 222.00 E/A: 0.60 E'Lateral: 5.55 E'Medial: 5.22 E/E' Med: 11.20 E/E' Lat: 10.50 PHT: 65.00 MVA PHT: 3.38 Decel Clark: 2.63 Aortic Valve AoV Pk Delfino: 1.27 AoV Mn Delfino: 0.87 AoV VTI: 0.27 AoV Pk Grad: 6.00 Aov Mn Grad: 3.00 NIKA Cont.VTI: 2.71 LVOT LVOT Pk Delfino: 0.96 LVOT Mn Delfino: 0.61 LVOT VTI: 0.19 LVOT Pk Grad: 4.00 LVOT Mn Grad: 2.00 LVOT Diam: 2.20 LVOT Area: 3.80 Diastolic Function MV Pk E: 0.58 MV Pk A: 0.92 E/A: 0.60 E'Medial: 5.22 E/E' Med: 11.20 E' Laterial: 5.55 E/E' Lat: 10.50 Right Ventricle TAPSE (mm): 18.00 TVS' Delfino: 10.60 Tricuspid Valve TR Pk Delfino: 2.59 TR Pk Grad: 27.00 RA Press: 3.00 RVSP: 30.00 Great Vessels Aorta Sinus of Valsalva: 2.90 2.0-3.5 cm Ao Asc: 3.40 2.1-3.4 cm Pulmonary Veins Pulm Vein S/D 1.90 Pulmonary Valve PV Pk Delfino: 0.88 Peak PV Grad: 3.00 Updated in Other Vendor System with Status of Final Lee Short MD electronically signed on 08/01/2022 9:19:38 AM with status of Final
== END ==
LOC: HO.CARD 07:42
PROVIDERS: PCP Internal Medicine; Visit Provider Internal Medicine
DX: R07.2 Precordial pain (principal)
CPT/HCPCS: 93306; Q9957

== ENCOUNTER → 2022-09-04 12:31 | Outpatient (BNVA) | payer MEDICARE, SELFPAY | PROVIDERS: PCP Internal Medicine; Referring Provider Internal Medicine; Visit Provider Nurse Practitioner Family | DX: I42.2 Other hypertrophic cardiomyopathy (principal); R07.2 Precordial pain; E78.5 Hyperlipidemia, unspecified; I10 Essential (primary) hypertension; E11.9 Type 2 diabetes mellitus without complications | CPT/HCPCS: 99212 ==

== ENCOUNTER → 2022-09-07 07:40 | Outpatient (REF) | payer MEDICARE, SELFPAY ==
--- NOTE | ~2022-09-07 | NM_ITS ---
Exercise Myocardial perfusion study Indication: Precordial chest pain to evaluate for myocardial ischemia Technique: The patient was brought in for an exercise perfusion study on 09/07/2022. Patient performed exercise as per Ryne protocol and was injected 25 mCi of sestamibi was given intravenously one target HR was achieved. Images were obtained using the SPECT gamma camera interlaced with the gating device. Images were obtained in supine position. Resting perfusion study was performed on 09/10/2022. Patient was administered 25 mCi of sestamibi intravenously at rest. Images were then obtained in supine position. Images obtained with and without CT attenuation. Total DLP 120 mGy-cm. Images were processed with the software and compared side to side in short axis, horizontal long axis and vertical long axis views. Findings: The stress perfusion study showed non attenuated images show normal uptake of radiotracer in all segments of LV myocardium. Attenuation corrected images show mildly reduced uptake in the apex of the LV myocardium.. The gated study shows normal LV systolic function with calculated LVEF of 70%. LV cavity is normal in size. The gated study shows normal systolic wall thickening and contraction of all segments. There is no transient ischemic dilation. Resting study shows no significant change in perfusion pattern compared to stress perfusion study. Gating at rest reveals normal systolic wall motion with ejection fraction at greater than 60%. The findings are consistent with normal myocardial perfusion. NM/NM cardiolite stress test Impression: 1. Normal myocardial perfusion 2. Gated LVEF is 70% 3. Transient ischemic dilatation not present Stress EKG is negative for ischemia
--- NOTE | 2022-09-07 07:44 | CA_ITS ---
Acquisition Time: 2022-09-07 08:10:04 Total Exercise Time: 00:05:00 Test Indications: Chest Pain Medications: LISINOPRIL METFORMIN ROSUVASTATIN VENLAFAXIN Protocol: RELL Max HR: 144 BPM 99% of Pred: 145 BPM Max BP: 162/058 mmHG Max Work Load: 6.0 METS Exercise stress test with exercise 5 min of Rell protocol (last 1.5 min speed reduced to 2.2MPH), without anginal symptoms, with isolated PACs, with normotensive response to exercise, without EKG changes meeting criteria for ischemia. Nuclear images pending. Test reviewed with Dr Short Referred By: Lee Short Overread By: LYNN GUAMAN
== END ==
LOC: HO.CARD 07:40
PROVIDERS: PCP Internal Medicine; Visit Provider Internal Medicine
DX: R07.2 Precordial pain (principal)
CPT/HCPCS: 78452; 93017; A9500

== ENCOUNTER 2022-10-31 08:14 | Outpatient (REF) | payer MEDICARE, SELFPAY ==
[2022-10-31 11:39] LABS: Estimated Average Glucose 114 mg/dL; Hemoglobin A1c % 5.6 %
[2022-10-31 12:16] LABS: Creatinine Urine 102.13 mg/dL; Microalbum/Creatinine Ratio Ur 10.7 ug/mg cr
[2022-10-31 12:32] LABS: Alanine Aminotransferase 41 U/L (0-31); Anion Gap 13 (12-20); Aspartate Amino Transferase 37 U/L (5-31); Blood Urea Nitrogen 18 mg/dL (9-16); Calcium 9.4 mg/dL (8.4-10.2); Carbon Dioxide 31 mmol/L (22-29); Chloride 104 mmol/L (96-108); Cholesterol 192 mg/dL; Estimated Glomerular Filt Rate > 60; Glucose Fasting 121 mg/dL (60-99); HDL Cholesterol 56 mg/dL; LDL Cholesterol Calculated 117 mg/dl; Potassium 4.6 mmol/L (3.3-5.1); Sodium 143 mmol/L (135-145); Triglycerides 98 mg/dL
== END 2022-10-31 08:15 | disposition home or self-care (01) ==
LOC: HO.HMGCLDS 08:14
PROVIDERS: PCP Internal Medicine; Visit Provider Internal Medicine
DX: E78.5 Hyperlipidemia, unspecified (principal); I10 Essential (primary) hypertension; M85.852 Other specified disorders of bone density and structure, left thigh; N95.1 Menopausal and female climacteric states; E11.9 Type 2 diabetes mellitus without complications
CPT/HCPCS: 36415; 80048; 80061; 82043; 82306; 83036; 84450; 84460

== ENCOUNTER 2023-01-30 07:34 | Outpatient (REF) | payer MEDICARE, SELFPAY ==
[2023-01-30 12:01] LABS: Estimated Average Glucose 123 mg/dL; Hemoglobin A1c % 5.9 %
[2023-01-30 12:19] LABS: Alanine Aminotransferase 25 U/L (0-31); Anion Gap 14 (12-20); Aspartate Amino Transferase 27 U/L (5-31); Blood Urea Nitrogen 13 mg/dL (9-16); Calcium 9.4 mg/dL (8.4-10.2); Carbon Dioxide 30 mmol/L (22-29); Chloride 104 mmol/L (96-108); Cholesterol 202 mg/dL; Estimated Glomerular Filt Rate > 60; Glucose Fasting 112 mg/dL (60-99); HDL Cholesterol 48 mg/dL; LDL Cholesterol Calculated 112 mg/dl; Potassium 5.1 mmol/L (3.3-5.1); Sodium 143 mmol/L (135-145); Triglycerides 213 mg/dL
[2023-01-30 12:38] LABS: Vitamin D 25-OH Total 36.4 ng/mL (>30)
== END 2023-01-30 07:35 | disposition home or self-care (01) ==
LOC: HO.HMGCLDS 07:34
PROVIDERS: PCP Internal Medicine; Visit Provider Internal Medicine
DX: E11.9 Type 2 diabetes mellitus without complications (principal); E78.5 Hyperlipidemia, unspecified; F32.0 Major depressive disorder, single episode, mild; I10 Essential (primary) hypertension; M85.852 Other specified disorders of bone density and structure, left thigh; N95.9 Unspecified menopausal and perimenopausal disorder
CPT/HCPCS: 36415; 80048; 80061; 82306; 83036; 84450; 84460

== ENCOUNTER 2023-05-01 07:07 | Outpatient (REF) | payer MEDICARE, SELFPAY ==
[2023-05-01 11:30] LABS: Estimated Average Glucose 117 mg/dL; Hemoglobin A1c % 5.7 %
[2023-05-01 12:01] LABS: Alanine Aminotransferase 35 U/L (0-31); Anion Gap 8 (12-20); Aspartate Amino Transferase 35 U/L (5-31); Blood Urea Nitrogen 15 mg/dL (9-16); Calcium 9.5 mg/dL (8.4-10.2); Carbon Dioxide 30 mmol/L (22-29); Chloride 104 mmol/L (96-108); Cholesterol 180 mg/dL; Estimated Glomerular Filt Rate > 60; Glucose Fasting 114 mg/dL (60-99); HDL Cholesterol 46 mg/dL; LDL Cholesterol Calculated 109 mg/dl; Potassium 4.2 mmol/L (3.3-5.1); Sodium 138 mmol/L (135-145); Triglycerides 127 mg/dL
[2023-05-01 12:03] LABS: Vitamin D 25-OH Total 47.4 ng/mL (>30)
[2023-05-01 12:13] LABS: Creatinine Urine 148.33 mg/dL; Microalbum/Creatinine Ratio Ur 10.1 ug/mg cr
== END 2023-05-01 07:08 | disposition home or self-care (01) ==
LOC: HO.HMGCLDS 07:07
PROVIDERS: PCP Internal Medicine; Visit Provider Internal Medicine
DX: Z00.01 Encounter for general adult medical examination with abnormal findings (principal); E11.9 Type 2 diabetes mellitus without complications; E78.5 Hyperlipidemia, unspecified; F32.0 Major depressive disorder, single episode, mild; I10 Essential (primary) hypertension; M85.852 Other specified disorders of bone density and structure, left thigh
CPT/HCPCS: 36415; 80048; 80061; 82043; 82306; 83036; 84450; 84460

== ENCOUNTER 2023-05-29 07:28 | Outpatient (REF) | payer MEDICARE, SELFPAY ==
--- NOTE | ~2023-05-29 | MM_ITS ---
EXAMINATION: MM SCREENING DIGITAL BREAST TOMOSYNTHESIS, BILATERAL CLINICAL INFORMATION: Screening. Asymptomatic. The lifetime risk of breast cancer based on the Tyrer-Cuzick Model is 3%. COMPARISON: Mammography: 06/01/2022, 05/16/2021, and dating back to 2014. TECHNIQUE: Digital breast tomosynthesis is performed in both the craniocaudal and mediolateral oblique views along with computer-aided detection (CAD). Synthesized 2D images are generated from the tomosynthesis. FINDINGS: There are scattered areas of fibroglandular density (ACR BI-RADS breast composition Category b). There are no suspicious masses, suspicious grouped calcifications, or areas of architectural distortion. The parenchymal pattern is stable from prior exams. MM/MM tomosynthesis screening BI IMPRESSION: No mammographic evidence of malignancy. ASSESSMENT: BI-RADS BI-RADS 1 - Negative RECOMMENDATION: Routine annual mammography screening. 1 year F/U This examination should not preclude the clinical evaluation of a suspicious palpable abnormality. This patient's information was entered into a reminder system with a target due date for their next mammogram.
--- NOTE | ~2023-05-29 | MM_ITS ---
EXAMINATION: BONE DENSITOMETRY CLINICAL INDICATION: Other specified disorders of bone density and structure. COMPARISON: Previous BD dated 05/16/2021 and baseline BD dated 06/02/2007. TECHNIQUE: Using a [employer] DXA System (software version: 13.1) manufactured by [employer], dual-energy x-ray absorptiometry was performed of the lumbar spine and left hip. The images are of good technical quality. Summary results are attached. FINDINGS: AP SPINE L1-L2 (excluding L3 and L4): The data of L1-L4 has been changed to exclude the L3 and L4 vertebral bodies, because degenerative sclerosis at these levels may cause overestimation of lumbar spine density. Current: BMD 1.138 g/cm2, Z-score 1.2, T-score -0.2, normal, 2.2% increase from previous, 16.2% increase from baseline (<5% change is not significant). Prior: BMD 1.113 g/cm2. Baseline: BMD 0.979 g/cm2. LEFT FEMUR, NECK: Current: BMD 0.686 g/cm2, Z-score -0.8, T-score -2.5, osteoporosis. Prior: BMD 0.826 g/cm2. Baseline: BMD 0.843 g/cm2. LEFT FEMUR, TOTAL: Current: BMD 0.913 g/cm2, Z-score 0.8, T-score -0.7, normal, 8.0% decrease from previous, 2.9% decrease from baseline (<5% change is not significant). Prior: BMD 0.992 g/cm2. Baseline: BMD 0.940 g/cm2. IDENTIFIED RISK FACTORS: Menopause, hysterectomy, bilateral oophorectomy, renal, osteoporosis, rheumatoid arthritis, secondary osteoporosis. HISTORY OF FRACTURE: None listed. MEDICATIONS: Calcium supplements or multivitamin, vitamin D. MM/XR DEXA axial skeleton IMPRESSION: 1. DIAGNOSIS: Osteoporosis based on the lowest T-score value of -2.5 in the femoral neck applying World Health Organization criteria. 2. 10-YEAR FRACTURE RISK PREDICTION, FRAX: According to the guidelines, FRAX calculation should only be performed on patients in the osteopenia bone density category. Therefore, FRAX was not performed on this patient. 3. Treatment Recommendations: NOF guidelines recommend consideration for treatment in postmenopausal women and men age 50 and older presenting with the following: -A hip or vertebral (clinical or morphometric) fracture. -T-score less than or equal to -2.5 at the femoral neck or spine after appropriate evaluation to exclude secondary causes. -Low bone mass at the hip or spine and a 10-year fracture probability by FRAX of greater than or equal to 3% for hip fracture or greater than or equal to 20% for major osteoporotic fracture based on the [place] adapted WHO algorithm. 4. Other Recommendations: All treatment decisions require clinical judgment and consideration of individual patient factors, including patient preferences, comorbidities, previous drug use, risk factors not captured in the FRAX model (e.g. frailty, falls, vitamin D deficiency, increased bone turnover, interval significant decline in bone density) and possible under or overestimation of fracture risk by FRAX. Additional medical evaluation for secondary cause of low bone mineral density may be appropriate. FUTURE SCAN RECOMMENDATION: People with diagnosed cases of osteoporosis or at high risk for fracture should have regular bone mineral density tests. For patients eligible for Medicare, routine testing is allowed once every 2 years. The testing frequency can be increased to one year for patients who have rapidly progressing disease, those who are receiving or discontinuing medical therapy to restore bone mass, or have additional risk factors.
== END 2023-05-29 07:29 | disposition home or self-care (01) ==
LOC: HO.MAMMO 07:28
PROVIDERS: PCP Internal Medicine; Visit Provider Internal Medicine
DX: Z12.31 Encounter for screening mammogram for malignant neoplasm of breast (principal); Z13.820 Encounter for screening for osteoporosis; Z78.0 Asymptomatic menopausal state; M85.852 Other specified disorders of bone density and structure, left thigh
CPT/HCPCS: 77063; 77067; 77080

== ENCOUNTER → 2023-05-29 09:15 | Outpatient (BNV) | payer MEDICARE, SELFPAY | PROVIDERS: PCP Internal Medicine; Visit Provider Radiology Diagnostic Radiology | DX: Z12.31 Encounter for screening mammogram for malignant neoplasm of breast (principal) | CPT/HCPCS: 77063; 77067; 77080; G0279 ==

== ENCOUNTER 2023-08-07 07:00 | Outpatient (REF) | payer MEDICARE, SELFPAY ==
[2023-08-07 11:41] LABS: Estimated Average Glucose 114 mg/dL; Hemoglobin A1c % 5.6 % (<6.0)
[2023-08-07 12:07] LABS: Alanine Aminotransferase 21 U/L (0-31); Anion Gap 11 (12-20); Aspartate Amino Transferase 23 U/L (5-31); Blood Urea Nitrogen 12 mg/dL (9-16); Calcium 9.4 mg/dL (8.4-10.2); Carbon Dioxide 31 mmol/L (22-29); Chloride 104 mmol/L (96-108); Cholesterol 190 mg/dL (<200); Estimated Glomerular Filt Rate > 60; Glucose Fasting 105 mg/dL (60-99); HDL Cholesterol 52 mg/dL (>40); LDL Cholesterol Calculated 101 mg/dL (<100); Potassium 4.8 mmol/L (3.3-5.1); Sodium 141 mmol/L (135-145); Triglycerides 187 mg/dL (<150)
== END 2023-08-07 07:01 | disposition home or self-care (01) ==
LOC: HO.CHCLDS 07:00
PROVIDERS: Visit Provider Internal Medicine
DX: E11.9 Type 2 diabetes mellitus without complications (principal); E78.5 Hyperlipidemia, unspecified; I10 Essential (primary) hypertension; F32.5 Major depressive disorder, single episode, in full remission
CPT/HCPCS: 36415; 80048; 80061; 83036; 84450; 84460

== ENCOUNTER 2023-08-09 10:16 | Outpatient (AMB) | payer MEDICARE, SELFPAY ==
[2023-08-09 10:55] VITALS: BP 116/60; PULSE 90; O2SAT 99; BMI 29.8
--- NOTE | 2023-08-09 10:55 | MHC.PC.OV ---
Vital Signs 08/09/23 10:55 Height 5 ft 2 in Weight 163 lb BMI 29.8 BP 116/60 Blood Pressure Location Rt brachial Position Sitting Pulse 90 Pulse Source Pulse Oximeter Pulse Oximetry (%) 99 Oxygen Delivery Method Room Air Intake Visit Reasons: 3m follow up Intake Note: patient is here today for her 3 mo f/u Allergies naproxen [NAPROXEN] Allergy (Severe, Verified 08/09/23 11:34) ANGIOEDEMA, rash,swelling,SOB penicillin G [Penicillin G] Allergy (Intermediate, Verified 08/09/23 11:34) RASH tramadol Allergy (Intermediate, Verified 08/09/23 11:34) vomiting, headaches Medication List - Last Reconciled 08/09/23 by Briseyda Kramer MD blood sugar diagnostic (FreeStyle Lite Strips) 1 strip miscellaneous BID 30 days lisinopril 2.5 mg PO DAILY metformin ER 500 mg PO BEDTIME rosuvastatin 5 mg PO DAILY venlafaxine 75 mg PO BID Tobacco use date assessed: 08/09/23 Fall risk assessment: No Falls in past year Last assessed Fall Risk: 08/09/23 Dental Screening Dental Screen Date: 08/09/23 Did you have a dental visit in the last 12 months?: No Did you have a dental problem in the last 6 months where you did not have access to dental care?: No Was dental information given to patient?: Patient has dentist HPI 3m follow up HPI Details 78-year-old lady here today for follow-up on her diabetes mellitus, hyperlipidemia and hypertension, and to discuss results of recent bone density scan done. He has been compliant with taking her medications, has been following recommended diet and, and stays active. Does not have any history of fractures. She also has [place], currently stable and controlled on venlafaxine [facility] Medical History Osteoporosis Depression, major, in remission Sialoadenitis of submandibular gland Cervical adenopathy Type 2 diabetes mellitus without complication, without long-term current use of insulin Dyslipidemia Essential hypertension Diabetes mellitus Surgical History History of breast biopsy History of total abdominal hysterectomy Family History Father CVD (cardiovascular disease) Mother CVD (cardiovascular disease) Maternal Aunt Breast cancer Sister Hypertension Son Asthma Son Bipolar 1 disorder Sister Diabetes Social History Housing: Apartment Alcohol intake: former Patient Tobacco Use Status: Never used Tobacco Tobacco use type: Cigarette e-Cigarette/Vaping Use: Never Used Second Hand Smoke Exposure: No service: No Current occupational status: retired Cognitive needs: No Hearing needs: No Vision needs: Yes Questionnaire Thrive Questionnaire Date Thrive assessed: 02/04/23 AUDIT C Alcohol Use Questionnaire (AUDIT-C) 1. How often do you have a drink containing alcohol?: Never Total Score: 0 GAB-7 AMB Questionnaire GAB-7 Date GAB - 7 assessed: 02/04/23 Source: Developed by Drs. Kayden Grajeda, Anat Elkins, Bacilio Wing and colleagues, with an educational amy from [employer]. Review of Systems Const Denies headache(s), Denies lethargy and Denies weakness Eyes Details: Sees Dr. Blackwell Reports no additional complaints ENT Denies dizziness, Denies headache(s) and Denies nasal congestion Card Denies chest pain, Denies chest pain with activity, Denies syncope, Denies rapid heart rate, Denies pedal edema, Denies lightheadedness, Denies palpitations and Denies dyspnea Resp Denies cough and Denies dyspnea GI Denies hematochezia and Denies change in stool character Denies urinary frequency, Denies difficulty voiding, Denies nocturia, Denies urinary incontinence and Denies urinary urgency Musc Denies abnormal gait, Denies muscle weakness, Denies numbness, Denies radiating pain into limb and Denies tingling Neuro Denies abnormal gait, Denies dizziness, Denies syncope, Denies headache(s), Denies numbness, Denies tingling and Denies weakness Psych Reports as per HPI Endo Denies palpitations Jin/Lymph Reports no additional complaints Physical exam (Primary Care) Vital Signs: Last Vital Signs Pulse 90 08/09/23 10:55 BP 116/60 08/09/23 10:55 Pulse Ox 99 08/09/23 10:55 Oxygen Delivery Method Room Air 08/09/23 10:55 BMI result Body Mass Index 29.8 BMI Assessment/Plan discussion: High BMI High, discussed plan: lifestyle, weight reduction, dietary and physical activity Tobacco/Smoking Status: Tobacco use Status Tobacco use date assessed 08/09/23 08/09/23 11:00 Patient Tobacco Use Status Never used Tobacco 08/09/23 11:00 Tobacco use type Cigarette 08/09/23 11:00 e-Cigarette/Vaping Use Never Used 08/09/23 11:00 Thrive Assessment: Date of Thrive Assessment Date Thrive assessed 02/04/23 08/09/23 11:00 Const Orientation/consciousness: patient oriented x3 [facility] General nose exam: Normal external nose present and No nasal discharge present Mouth: Normal oral and palatal mucosa present and moist mucous membranes Eyes General: appearance normal, both eyes and all related structures Neck Neck: Yes full ROM and Yes supple Resp Auscultation: clear to auscultation bilaterally Cardio Other: S1-S2 present regular rate and rhythm GI Other: Normal bowel sounds, soft, nontender, no mass palpated Back/Spine/Pelvis Back: No back tenderness Skin General skin exam: no rashes or lesions noted Neuro General: patient oriented x3, gait normal, moves all extremities, Normal light touch and pain sensation and no focal motor deficits Extrem General: Yes no joint enlargement, Yes no clubbing, cyanosis or edema, Yes no pedal edema, Yes no calf tenderness and Yes normal gait Psych Appearance: grossly normal Speech and movement: Normal speech and movement present Affect: normal affect Attitude: cooperative Thought process: Normal thought process present Results Reviewed Results Reviewed: ENTERED: 08/07/23 [place] TSE: ORDERED: Met Prof Fast, AST, ALT, Lipid Panel Test Result Flag Reference Site Sodium 141 135-145 mmol/L Potassium 4.8 3.3-5.1 mmol/L CL 104 96-108 mmol/L CO2 31 H 22-29 mmol/L Gap 11 L 12-20 BUN 12 9-16 mg/dL Creat 0.72 0.5-1.4 mg/dL EGFR > 60 NOTE: For -[place] individuals, multiply the result by 1.210. Chronic Kidney Disease: Estimated GFR < 60 mL/min/1.73m2 Severe Kidney Disease: Estimated GFR < 15 mL/min/1.73m2 FBS 105 H 60-99 mg/dL A fasting glucose from 100-125 mg/dl is considered impaired (pre-diabetes). CA 9.4 8.4-10.2 mg/dL AST (GOT) 23 5-31 U/L ALT (GPT) 21 0-31 U/L Triglyceride 187 H <150 mg/dL Desirable Triglyceride: less than 150 mg/dL Borderline High Triglyceride 150-199 mg/dL High Triglyceride: 200-499 mg/dL Very High Triglyceride: greater than or equal to 5OO mg/dL Cholesterol 190 <200 mg/dL Desirable Cholesterol: less than 200 mg/dL Borderline High Cholesterol: 200-239 mg/dL High Cholesterol: greater than 239 mg/dL LDL Calculated 101 H <100 mg/dL Desirable LDL: less than 100 mg/dL Near Optimal/Above Optimal LDL: 110-129 mg/dL Borderline High LDL: 130-159 mg/dL High LDL: 160-189 mg/dL Very High LDL: greater than or equal to 190 mg/dL HDL 52 >40 mg/dL Desirable HDL: greater than 40 mg/dL Laboratory Tests 05/01/23 08/07/23 08/07/23 07:10 07:10 07:10 Estimat Average Glucose 114 Hemoglobin A1c % 5.6 Urine Creatinine 148.33 Urine Microalbumin 15.0 Microalb/Creat Ratio 10.1 Assessment and Plan Assessment & Plan (1) Osteoporosis: Code(s): M81.0 - Age-related osteoporosis without current pathological fracture Qualifiers: Osteoporosis type: age-related Presence of current pathological fracture: without current pathological fracture Qualified Code(s): M81.0 - Age-related osteoporosis without current pathological fracture Plan: Recent bone density scan with patient which showed presence of osteoporosis in left femoral neck, normal in lumbar spine and left femur. Will start on alendronate 70 mg per tablet to take once a week, advised to stay upright after taking it for at least an hour, take it with full glass of water, will repeat another bone density scan in 1 year. Continue taking cough calcium and cholecalciferol supplements advised to do regular active weight-bearing exercise (2) Depression, major, in remission: Code(s): F32.5 - Major depressive disorder, single episode, in full remission Plan: Controlled on venlafaxine continued on 75 mg once a day (3) Type 2 diabetes mellitus without complication, without long-term current use of insulin: Code(s): E11.9 - Type 2 diabetes mellitus without complications Plan: Recent lab results reviewed with patient, with sugar and hemoglobin A1c stable and at goal. Continue metformin at the same dose. continue to check fasting blood sugar at home, maintain log and bring to next appointment for review. Reinforced diabetic diet and regular exercise with patient. Counseled regarding importance of yearly diabetes retinopathy screening, has an upcoming appointment to see Dr. Blackwell for her yearly diabetes retinopathy screening.. Patient advised to inspect feet daily, for any signs of injury, callus or infection. Compliance with diet and regular exercise again stressed. Blood pressure goal is less than 130/80, goal LDL is less than 100 and goal hemoglobin A1c is less than 7% follow-up appointment made in--6 -months, after fasting labs done. Already had her flu shot for this year, reminded to get her COVID booster, up-to-date with her pneumonia vaccine and shingles vaccine (4) Dyslipidemia: Code(s): E78.5 - Hyperlipidemia, unspecified Plan: Continue with rosuvastatin 5 mg daily and reinforced add hearing is to healthy eating habits, low-cholesterol diet and getting regular exercise, recheck lipids again in 6 months (5) Essential hypertension: Code(s): I10 - Essential (primary) hypertension Plan: Blood pressure at goal of less than 130/80. Continue with current medication. Reinforced importance of following a low sodium diet, getting regular exercise, and lowering stress levels. Orders: Orders Comprehensive [place]. Panel Fast 02/03/24 E11.9 - Type 2 diabetes mellitus without complications, E78.5 - Hyperlipidemia, unspecified, F32.5 - Major depressive disorder, single episode, in full remission, I10 - Essential (primary) hypertension, M81.0 - Age-related osteoporosis without current pathological fracture Hemoglobin A1c 02/03/24 E11.9 - Type 2 diabetes mellitus without complications, E78.5 - Hyperlipidemia, unspecified, F32.5 - Major depressive disorder, single episode, in full remission, I10 - Essential (primary) hypertension, M81.0 - Age-related osteoporosis without current pathological fracture Microalbumin, Random (w Creat) 02/03/24 E11.9 - Type 2 diabetes mellitus without complications, E78.5 - Hyperlipidemia, unspecified, F32.5 - Major depressive disorder, single episode, in full remission, I10 - Essential (primary) hypertension, M81.0 - Age-related osteoporosis without current pathological fracture Vitamin D 25-OH Total 02/03/24 E11.9 - Type 2 diabetes mellitus without complications, E78.5 - Hyperlipidemia, unspecified, F32.5 - Major depressive disorder, single episode, in full remission, I10 - Essential (primary) hypertension, M81.0 - Age-related osteoporosis without current pathological fracture Lipid Panel 02/03/24 E11.9 - Type 2 diabetes mellitus without complications, E78.5 - Hyperlipidemia, unspecified, F32.5 - Major depressive disorder, single episode, in full remission, I10 - Essential (primary) hypertension, M81.0 - Age-related osteoporosis without current pathological fracture Medications: New alendronate 70 mg PO QWEEK 3 months 13 tabs 4RF M81.0 - Age-related osteoporosis without current pathological fracture Coding Level of Care Code Est Pt Level 4 (07862) Diagnoses Age-related osteoporosis without current pathological fracture M81.0 Osteoporosis type: age-related Presence of current pathological fracture: without current pathological fracture Depression, major, in remission F32.5 Type 2 diabetes mellitus without complication, without long-term current use of insulin E11.9 Dyslipidemia E78.5 Essential hypertension I10
== END 2023-08-09 13:57 | disposition home or self-care (01) ==
PROVIDERS: PCP Internal Medicine; Visit Provider Internal Medicine
DX: M81.0 Age-related osteoporosis without current pathological fracture (principal); F32.5 Major depressive disorder, single episode, in full remission; E11.9 Type 2 diabetes mellitus without complications; E78.5 Hyperlipidemia, unspecified; I10 Essential (primary) hypertension
CPT/HCPCS: 99214

== ENCOUNTER 2024-02-06 09:18 | Outpatient (REF) | payer MEDICARE, SELFPAY ==
[2024-02-06 10:39] LABS: Estimated Average Glucose 120 mg/dL; Hemoglobin A1c % 5.8 % (<6.0)
[2024-02-06 11:12] LABS: Alanine Aminotransferase 21 U/L (0-31); Albumin Level 4.1 g/dL (3.5-5.0); Alkaline Phosphatase 68 U/L (39-117); Anion Gap 13 (12-20); Aspartate Amino Transferase 23 U/L (5-31); Bilirubin Total 0.4 mg/dL (0.0-1.0); Blood Urea Nitrogen 13 mg/dL (9-16); Carbon Dioxide 29 mmol/L (22-29); Chloride 106 mmol/L (96-108); Cholesterol 238 mg/dL (<200); Estimated Glomerular Filt Rate > 60; Glucose Fasting 114 mg/dL (60-99); HDL Cholesterol 52 mg/dL (>40); LDL Cholesterol Calculated 148 mg/dL (<100); Potassium 4.3 mmol/L (3.3-5.1); Sodium 144 mmol/L (135-145); Total Protein 7.5 g/dL (6.5-8.0); Triglycerides 194 mg/dL (<150); Vitamin D 25-OH Total 31.7 ng/mL (>30)
== END 2024-02-06 09:19 | disposition home or self-care (01) ==
LOC: HO.HMGCLDS 09:18
PROVIDERS: PCP Internal Medicine; Visit Provider Internal Medicine
DX: F32.5 Major depressive disorder, single episode, in full remission (principal); E11.9 Type 2 diabetes mellitus without complications; I10 Essential (primary) hypertension; M81.0 Age-related osteoporosis without current pathological fracture; E78.5 Hyperlipidemia, unspecified
CPT/HCPCS: 36415; 80053; 80061; 82043; 82306; 82570; 83036

== ENCOUNTER 2024-02-10 08:44 | Outpatient (AMB) | payer MEDICARE, SELFPAY ==
--- NOTE | 2024-02-10 09:03 | A.OFFPC_ITS ---
<Statement entered by Briseyda Kramer MD - 12/05/25 23:39> This note has been administratively?closed.This note has been administratively?closed.This note has been administratively?closed.This note has been administratively?closed.This note has been administratively?closThis note has been administratively?closed.ed. Vital Signs 02/10/24 09:12 Height 52 ft Weight 165 lb BMI 0.3 BP 130/64 Blood Pressure Location Rt brachial Position Sitting Pulse 97 Pulse Source Pulse Oximeter Temp 98.8 F Temp Source Oral Pulse Oximetry (%) 100 Oxygen Delivery Method Room Air Intake Visit Reasons: cough Intake Note: Pt is here today for her sinue pressure and a cough x4days Allergies naproxen (NAPROXEN) Allergy (Severe, Verified 11/04/25 23:15) ANGIOEDEMA, rash,swelling,SOB penicillin G (Penicillin G) Allergy (Intermediate, Verified 11/04/25 23:15) RASH tramadol Allergy (Intermediate, Verified 11/04/25 23:15) vomiting, headaches Tobacco use date assessed: 02/10/24 Last assessed Fall Risk: 02/10/24 Dental Screening Dental Screen Date: 02/10/24 Did you have a dental visit in the last 12 months?: No Was dental information given to patient?: Patient declined [facility] Medical History (Updated 10/27/25 @ 10:28 by Briseyda Kramer MD) Osteopenia of multiple sites History of osteoporosis Depression with anxiety Sphenoid sinusitis Osteoporosis Sialoadenitis of submandibular gland Type 2 diabetes mellitus without complication, without long-term current use of insulin Dyslipidemia Essential hypertension Surgical History History of breast biopsy History of total abdominal hysterectomy Family History Father CVD (cardiovascular disease) Mother CVD (cardiovascular disease) Maternal Aunt Breast cancer Sister Hypertension Son Asthma Son Bipolar 1 disorder Sister Diabetes Social History Household Members: None Housing: Apartment Alcohol intake: former Patient Tobacco Use Status: Never used Tobacco e-Cigarette/Vaping Use: Never Used Second Hand Smoke Exposure: No service: No Current occupational status: retired Cognitive needs: No Hearing needs: No Vision needs: Yes Questionnaire PHQ-9 Over the last 2 weeks, how often have you been bothered by any of the following problems? 1. Little interest or pleasure in doing things: more than half the days 2. Feeling down, depressed, or hopeless: nearly every day 3. Trouble falling or staying asleep, or sleeping too much: nearly every day 4. Feeling tired or having little energy: nearly every day 5. Poor appetite or overeating: more than half the days 6. Feeling bad about yourself - or that you are a failure or have let yourself or your family down: not at all 7. Trouble concentrating on things, such as reading the newspaper or watching television: several days 8. Moving or speaking so slowly that other people could have noticed. Or the opposite - being so fidgety or restless that you have been moving around a lot more than usual: several days 9. Thoughts that you would be better off or of hurting yourself in some way: not at all Total score: 15 Source: Developed by Drs. Kayden Grajeda, Anat Elkins, Bacilio Wing and colleagues, with an educational amy from [employer]. Thrive Questionnaire Date Thrive assessed: 02/10/24 I am a: Patient What is your living situation today?: I have a steady place to live Within the past 12 months, did the food you bought not last and you didn't have the money to get more?: Never true Within the past 12 months, did you worry whether your food would run out before you got money to buy more?: Never true Do you have trouble paying for medicines?: No Do you have trouble getting transportation to medical appointments?: No Do you have trouble paying your heating and electricity bill?: No Do you have trouble taking care of your child, family member or friend?: No Do you have trouble with day-to-day activities such as bathing, preparing meals, shopping, managing finances, etc.?: No Are you currently unemployed and looking for a job?: No Are you interested in more education?: No THRIVE Score: 0 GAB-7 AMB Questionnaire GAB-7 Date GAB - 7 assessed: 02/10/24 Feeling nervous, anxious, or on edge: 3 = Nearly every day Not being able to stop or control worryin = Not at all Worrying too much about different things: 1 = Several days Trouble relaxin = Several days Being so restless that it is hard to sit still: 3 = Nearly every day Becoming easily annoyed or irritable: 1 = Several days Feeling afraid as if something awful might happen: 1 = Several days Total GAB-7 score (0-4 normal; 5-9 mild; 10-14 moderate; 15-21 severe): 10 Source: Developed by Drs. Kayden Grajeda, Anat Elkins, Bacilio Wing and colleagues, with an educational amy from [employer]. Physical exam (Primary Care) Vital Signs: Last Vital Signs Temp 98.8 F 02/10/24 09:12 Pulse 97 02/10/24 09:12 BP 130/64 02/10/24 09:12 Pulse Ox 100 02/10/24 09:12 Oxygen Delivery Method Room Air 02/10/24 09:12 BMI result Body Mass Index 0.3 Tobacco/Smoking Status: Tobacco use Status Tobacco use date assessed 02/10/24 02/10/24 09:07 Patient Tobacco Use Status Never used Tobacco 02/10/24 09:07 Tobacco use type Cigarette 02/10/24 09:07 e-Cigarette/Vaping Use Never Used 02/10/24 09:07 PHQ-9: PHQ-9 Score PHQ-9: Total score 15 12/06/25 08:24 Thrive Assessment: Date of Thrive Assessment Date Thrive assessed 02/10/24 02/10/24 09:22 Coding Level of Care Code Admin Sign Off/No Billing Diagnoses URI with cough and congestion J06.9
[2024-02-10 09:12] VITALS: BP 130/64; PULSE 97; TEMP 37.1; O2SAT 100
== END 2024-02-10 09:41 | disposition home or self-care (01) ==
PROVIDERS: PCP Internal Medicine; Visit Provider Internal Medicine
DX: J06.9 Acute upper respiratory infection, unspecified (principal)
CPT/HCPCS: 99499

== ENCOUNTER 2024-02-10 09:38 | Outpatient (REF) | payer MEDICARE, SELFPAY ==
[2024-02-10 11:31] LABS: Influenza A PCR NEGATIVE (Negative); Influenza B PCR NEGATIVE (Negative); Resp Syncy Virus RNA Qual PCR NEGATIVE (Negative); SARS COV2 PCR INHOUSE NEGATIVE (Negative)
== END 2024-02-10 09:39 | disposition home or self-care (01) ==
LOC: HO.LAB 09:38
PROVIDERS: Visit Provider Internal Medicine
DX: J06.9 Acute upper respiratory infection, unspecified (principal)
CPT/HCPCS: 0241U

== ENCOUNTER → 2024-07-02 11:59 | Outpatient (RCR) | payer MEDICARE, SELFPAY ==
[2020-12-30 10:51] VITALS: BP 128/60; PULSE 70; RESP 12; TEMP 36.4; O2SAT 100; BMI 30.3
--- NOTE | 2020-12-30 11:15 | PM.HEMONCCN ---
Subjective - Subjective Chief complaint: Anemia Patient: new to practice Consult date: 12/30/20 Primary Care Provider: Kristyn Pardo MD HPI - Consult Narrative Reason for consult: Normocytic anemia Narrative: Indira Mckeon is a 75 year old female referred for evaluation of mild normocytic anemia. Her hemoglobin in 2019 in 2020 trended down to around 11.5 gram/dL. Previously it was about 12 gram/dL. This was noticed incidentally on blood work. She denies any complaints such as abdominal pain, change in bowel habits, melena, hematemesis or dyspepsia. No fever, chills, night sweats or unexplained weight loss. She is not on any new medications. He has had and a copy a few years ago. She is doing well and has no complaints today. Review of Systems - Constitutional Reports as per HPI, Reports no additional constitutional complaints - Cardiovascular Reports no additional cardiovascular complaints - Respiratory Reports no additional respiratory complaints Oncology Screenings - ECOG Performance Status ECOG Performance Status: 1 [facility] Medical History: Medical History (Last Reviewed 12/07/20 @ 09:26 by Kristyn Pardo MD) Current mild episode of major depressive disorder Diabetes mellitus Essential hypertension Normocytic anemia Pure hypercholesterolemia Family History: Family History (Last Reviewed 12/07/20 @ 09:24 by Kristyn Pardo MD) Father CVD (cardiovascular disease) Mother CVD (cardiovascular disease) Maternal Aunt Breast cancer Sister Hypertension Son Asthma Son Bipolar 1 disorder Sister Diabetes Surgical History: Surgical History (Last Reviewed 12/07/20 @ 09:24 by Kristyn Pardo MD) History of breast biopsy History of total abdominal hysterectomy Social History: Social History (Last Updated 12/30/20 @ 10:54 by Allegra Schulz) Alcohol History: Alcohol intake: former Alcohol History Details: Alcohol intake frequency: does not drink Tobacco History: Smoking Status: Never smoker Substance Use History: Use of substances other than those prescribed or required for medical reasons: No Smoking status: Never smoker Home Medications and Allergies Allergies Allergy/AdvReac Type Severity Reaction Status Date / Time naproxen [NAPROXEN] Allergy Severe ANGIOEDEMA, Verified 12/07/20 09:23 rash,swelling,SOB atorvastatin Allergy Unknown rash Verified 12/07/20 09:23 penicillin G [Penicillin G] Allergy Unknown RASH Verified 02/03/21 09:23 penicillin V Allergy Unknown rash Verified 12/07/20 09:23 tramadol Allergy Unknown vomiting, Verified 12/07/20 09:23 headaches Physical Exam Vital signs: Vital Signs Temp 97.5 F 12/30/20 10:51 Pulse 70 12/30/20 10:51 Resp 12 12/30/20 10:51 BP 128/60 12/30/20 10:51 Pulse Ox 100 12/30/20 10:51 Intake & Output 12/29/20 12/30/20 12/30/20 18:59 06:59 18:59 Other: Weight 75.2 kg [place] Weight in Grams 31552 Weight 75.2 kg - Constitutional Present: no acute distress - Routine HEENT Exam Head: Present: normal inspection Eye: Present: EOMI - Routine Neck Exam Present: supple - Routine Respiratory Exam Present: CTAB - Routine Cardiovascular Exam Cardiovascular: Present: RRR, S1, S2 - Routine Abdominal Exam Present: soft Hem/Onc Consult Result - Labs CBC & Chem 7: 12/30/20 11:34 Assessment and Plan (1) Normocytic anemia Status: Acute 1. This is a 75-year-old woman was noticed to have mild normocytic anemia on blood work a month ago. No hematinic deficiencies. Blood work today shows resolution of anemia. Rest of differential including WBC and platelet counts are normal. No evidence of hemolysis, chronic kidney or liver problems. SPEP/immunofixation is pending. May be transient anemia which has self resolved. I thank you for this consultation.
[2020-12-30 11:42] LABS: MANUAL DIFF FLAG NO
[2020-12-30 11:47] LABS: Basophils Absolute Auto 0.1 X10*3/uL (0.0-0.2); Basophils Percent Auto 0.9 % (0-2); Eosinophils Absolute Auto 0.2 X10*3/uL (0.0-0.4); Eosinophils Percent Auto 3.8 % (0-4); Hematocrit 37.5 % (37-47); Hemoglobin 12.2 g/dl (12.0-16.0); Imm Gran Abs Auto 0.01 X10*3/uL (0.00-0.03); Imm Gran Pct Auto 0.2 % (0.0-0.4); Immature Retic Fraction 12.3 % (3.0-15.9); Lymphocytes Absolute Auto 1.6 X10*3/uL (1.2-4.9); Lymphocytes Percent Auto 28.3 % (20-40); Mean Corpuscular HGB Conc 32.5 g/dl (31.0-35.0); Mean Corpuscular Hemoglobin 31.1 pg (27.0-33.0); Mean Corpuscular Volume 95.7 fL (80-98); Mean Platelet Volume 10.1 fL (9.4-12.3); Monocytes Absolute Auto 0.4 X10*3/uL (0.1-1.2); Monocytes Percent Auto 6.1 % (2-11); Neutrophils Absolute Auto 3.5 X10*3/uL (2.0-8.3); Neutrophils Percent Auto 60.7 % (45-73); Platelet Count 195 X10*3/uL (160-400); Red Blood Count 3.92 X10*6/uL (4.20-5.50); Red Cell Distribution Width 13.5 % (11.0-16.0); Retic HGB Equivalent 35.2 pg (30.0-35.0); Reticulocyte Percent 1.9 % (0.5-1.8); Reticulocytes Absolute 0.073 X10*6/uL (0.026-0.095); White Blood Count 5.8 X10*3/uL (4.8-10.8)
[2020-12-30 12:11] LABS: Iron 66 mcg/dL (30-160); Lactate Dehydrogenase 174 U/L (122-220); Percent Iron Saturation 17 % (15-50); Total Iron Binding Capacity 378 mcg/dL (228-428); Unsaturated Iron Binding 312 ug/dL
--- NOTE | 2020-12-30 12:45 | MHC.HEMONCMA ---
Patient came in for a consult today, states she is doing well. Clinical summary reviewed and updated. Patient had labs and will return in 6 months for a follow up.
[2020-12-30 13:39] LABS: Vitamin B12 1234 pg/mL (200-900)
[2021-01-03 21:12] LABS: Prot Elec - Alpha1 0.3 g/dL (0.2-0.3); Prot Elec - Alpha2 0.8 g/dL (0.5-0.9); Prot Elec - Beta 1 0.5 g/dL (0.4-0.6); Prot Elec - Beta 2 0.4 g/dL (0.2-0.5); Prot Elec - Gamma 0.9 g/dL (0.8-1.7); Prot Elec - Total Protein 6.9 g/dL (6.1-8.1)
[2021-01-04 12:38] LABS: IgA 263 mg/dL (70-320); IgG 886 mg/dL (600-1540); IgM 97 mg/dL (50-300)
[2021-01-30 09:06] VITALS: BMI 30.6
[2021-01-30 09:07] VITALS: BP 135/63; PULSE 76; RESP 18; TEMP 36.1; O2SAT 97
--- NOTE | 2021-01-30 09:08 | P.PNHO_ITS ---
Medical Summary - Medical Summary Date of Service: 01/30/21 Chief complaint: Follow-up Medical Summary: Diagnosis: Normocytic anemia 2020 Mild anemia with hemoglobin around 11.5 gram/dL. Repeat blood work showed normal CBC with normal iron studies, no hematinic deficiencies. Normal SPEP and immunofixation. Normal kidney and liver functions. Interval History Interval history: Patient is here in follow-up. She is doing well and has no new complaints today. She is here for results of blood work from her last visit. [facility] Medical History: Medical History (Last Reviewed 12/07/20 @ 09:26 by Kristyn Pardo MD) Current mild episode of major depressive disorder Diabetes mellitus Essential hypertension Normocytic anemia Pure hypercholesterolemia Family History: Family History (Last Reviewed 12/07/20 @ 09:24 by Kristyn Pardo MD) Father CVD (cardiovascular disease) Mother CVD (cardiovascular disease) Maternal Aunt Breast cancer Sister Hypertension Son Asthma Son Bipolar 1 disorder Sister Diabetes Surgical History: Surgical History (Last Reviewed 12/07/20 @ 09:24 by Kristyn Pardo MD) History of breast biopsy History of total abdominal hysterectomy Social History: Social History (Last Updated 12/30/20 @ 10:54 by Allegra Schulz) Alcohol History: Alcohol intake: former Alcohol History Details: Alcohol intake frequency: does not drink Tobacco History: Smoking Status: Never smoker Substance Use History: Use of substances other than those prescribed or required for medical reasons : No Smoking status: Never smoker Home Medications and Allergies Allergies Allergy/AdvReac Type Severity Reaction Status Date / Time naproxen [NAPROXEN] Allergy Severe ANGIOEDEMA, Verified 12/07/20 09:23 rash,swelling,SOB atorvastatin Allergy Unknown rash Verified 12/07/20 09:23 penicillin G [Penicillin G] Allergy Unknown RASH Verified 12/07/20 09:23 penicillin V Allergy Unknown rash Verified 12/07/20 09:23 tramadol Allergy Unknown vomiting, Verified 12/07/20 09:23 headaches Exam Vital signs: Vital Signs Temp 97.5 F 12/30/20 10:51 Pulse 70 12/30/20 10:51 Resp 12 12/30/20 10:51 BP 128/60 12/30/20 10:51 Pulse Ox 100 12/30/20 10:51 Intake & Output 01/29/21 01/30/21 01/30/21 18:59 06:59 18:59 Other: Weight 76 kg [place] Weight in Grams 79071 Weight 76 kg Body Mass Index 30.6 - Constitutional Present: no acute distress - Routine HEENT Exam Head: Present: normal inspection - Routine Respiratory Exam Present: CTAB - Routine Cardiovascular Exam Cardiovascular: Present: RRR, S1, S2 - Routine Abdominal Exam Present: soft Data - Labs CBC & Chem 7: 12/30/20 11:34 Labs: 12/30/20 11:34 Complete Blood Count Auto Diff Routine IRON PROFILE Routine Immunofixation Pnl, Serum Routine Lactate Dehydrogenase Routine Protein Electrophoresis, Serum Routine Reticulocyte Count Routine Vitamin B12 and Folate Routine Laboratory Last Values WBC 5.8 X10*3/uL (4.8-10.8) 12/30/20 11:34 RBC 3.92 X10*6/uL (4.20-5.50) L 12/30/20 11:34 Hgb 12.2 g/dl (12.0-16.0) 12/30/20 11:34 Hct 37.5 % (37-47) 12/30/20 11:34 MCV 95.7 fL (80-98) 12/30/20 11:34 MCH 31.1 pg (27.0-33.0) 12/30/20 11:34 MCHC 32.5 g/dl (31.0-35.0) 12/30/20 11:34 RDW 13.5 % (11.0-16.0) 12/30/20 11:34 Plt Count 195 X10*3/uL (160-400) 12/30/20 11:34 MPV 10.1 fL (9.4-12.3) 12/30/20 11:34 Immature Gran % (Auto) 0.2 % (0.0-0.4) 12/30/20 11:34 Neut % (Auto) 60.7 % (45-73) 12/30/20 11:34 Lymph % (Auto) 28.3 % (20-40) 12/30/20 11:34 [place] % (Auto) 6.1 % (2-11) 12/30/20 11:34 Eos % (Auto) 3.8 % (0-4) 12/30/20 11:34 Baso % (Auto) 0.9 % (0-2) 12/30/20 11:34 Lymph # (Auto) 1.6 X10*3/uL (1.2-4.9) 12/30/20 11:34 [place] # (Auto) 0.4 X10*3/uL (0.1-1.2) 12/30/20 11:34 Eos # (Auto) 0.2 X10*3/uL (0.0-0.4) 12/30/20 11:34 Baso # (Auto) 0.1 X10*3/uL (0.0-0.2) 12/30/20 11:34 Abs Immat Gran (auto) 0.01 X10*3/uL (0.00-0.03) 12/30/20 11:34 Absolute Neuts (auto) 3.5 X10*3/uL (2.0-8.3) 12/30/20 11:34 Absolute Nucleated RBC 0.000 X10*3/uL (0.0-0.012) 12/30/20 11:34 Nucleated RBC % (auto) 0.0 /100WBC (0.0-0.2) 12/30/20 11:34 Absolute Retic 0.073 X10*6/uL (0.026-0.095) 12/30/20 11:34 Percent Retic 1.9 % (0.5-1.8) H 12/30/20 11:34 Immature Retic Fraction 12.3 % (3.0-15.9) 12/30/20 11:34 Retic Hgb Equivalent 35.2 pg (30.0-35.0) H 12/30/20 11:34 Iron 66 mcg/dL (30-160) 12/30/20 11:34 TIBC 378 mcg/dL (228-428) 12/30/20 11:34 % Saturation 17 % (15-50) 12/30/20 11:34 Unsat Iron Binding 312 ug/dL 12/30/20 11:34 Lactate Dehydrogenase 174 U/L (122-220) 12/30/20 11:34 Total Protein (PEP) 6.9 g/dL (6.1-8.1) 12/30/20 11:34 Albumin (PEP) 4.0 g/dL (3.8-4.8) 12/30/20 11:34 Blhoc-1-Mkleuibsx 0.3 g/dL (0.2-0.3) 12/30/20 11:34 Caffg-5-Olckpjxgw 0.8 g/dL (0.5-0.9) 12/30/20 11:34 Haif-6-Fzyzttaf 0.5 g/dL (0.4-0.6) 12/30/20 11:34 Zdqi-6-Hxvddebo 0.4 g/dL (0.2-0.5) 12/30/20 11:34 Gamma Globulins 0.9 g/dL (0.8-1.7) 12/30/20 11:34 Abnorm Protein Band 1 TNP 12/30/20 11:34 Abnorm Protein Band 2 TNP 12/30/20 11:34 Abnorm Protein Band 3 TNP 12/30/20 11:34 PEP Interpretation SEE NOTE 12/30/20 11:34 Vitamin B12 1234 pg/mL (200-900) H 12/30/20 11:34 Folate 14.0 ng/mL (> or = 4.0) 12/30/20 11:34 IgG Total 886 mg/dL (600-1540) 12/30/20 11:34 IgA Total 263 mg/dL (70-320) 12/30/20 11:34 IgM 97 mg/dL (50-300) 12/30/20 11:34 KAMI Interpretation SEE NOTE 12/30/20 11:34 Progress Note: A/P (1) Normocytic anemia Status: Chronic Assessment and plan: 1. This is a 75-year-old woman was noticed to have mild normocytic anemia on blood work a month ago. No hematinic deficiencies. Blood work today shows resolution of anemia. Rest of differential including WBC and platelet counts are normal. No evidence of hemolysis, chronic kidney or liver problems. SPEP/immunofixation is normal. No hematinic deficiencies. May be transient anemia which has self resolved. Blood work to be repeated in 4 months. This was discussed with the patient. - Time Spent With Patient Total time spent is greater than 50% in coordination of care (as documented) at patient's floor/unit and/or counseling patient: 15 - 24 minutes
--- NOTE | 2021-01-30 09:24 | MHC.HEMONCMA ---
Patient came in for a follow up on anemia, states she is doing well. Clinical summary was reviewed and updated. Patient did not have labs and will return in 4 months for a follow up.
== END | disposition home or self-care (01) ==
LOC: HO.ONC 12-30 10:36
PROVIDERS: PCP Internal Medicine; Referring Provider Internal Medicine; Visit Provider Internal Medicine
DX: D64.9 Anemia, unspecified (principal)
CPT/HCPCS: 36415; 82607; 82746; 82784; 83540; 83615; 84155; 84165; 85025; 85045; 86334; 99202; 99213

== ENCOUNTER 2024-07-10 07:21 | Outpatient (REF) | payer MEDICARE, SELFPAY ==
--- NOTE | ~2024-07-10 | MM_ITS ---
EXAMINATION: MM SCREENING DIGITAL BREAST TOMOSYNTHESIS, BILATERAL CLINICAL INFORMATION: Screening. Asymptomatic. COMPARISON: Mammography: Comparison is made with available priors TECHNIQUE: Digital breast mammography with tomosynthesis is performed in both the craniocaudal and mediolateral oblique views along with computer-aided detection (CAD). FINDINGS: There are scattered areas of fibroglandular density (ACR BI-RADS breast composition Category b). There are no significant masses, abnormal calcifications, or other abnormalities. MM/MM tomosynthesis screening BI IMPRESSION: No mammographic evidence of malignancy. ASSESSMENT: BI-RADS BI-RADS 1 - Negative RECOMMENDATION: Routine annual mammography screening. 1 year F/U This examination should not preclude the clinical evaluation of a suspicious palpable abnormality. This patient's information was entered into a reminder system with a target due date for their next mammogram. Electronically signed by: Stacie Jones DO 07/26/2024 03:00 PM RODY
== END 2024-07-10 07:22 | disposition home or self-care (01) ==
LOC: HO.MAMMO 07:21
PROVIDERS: PCP Internal Medicine; Visit Provider Internal Medicine
DX: Z12.31 Encounter for screening mammogram for malignant neoplasm of breast (principal)
CPT/HCPCS: 77063; 77067

== ENCOUNTER → 2024-07-10 08:45 | Outpatient (BNV) | payer MEDICARE, SELFPAY | PROVIDERS: PCP Internal Medicine; Visit Provider Internal Medicine | DX: Z12.31 Encounter for screening mammogram for malignant neoplasm of breast (principal) | CPT/HCPCS: 77063; 77067 ==

== ENCOUNTER 2024-08-20 09:41 | Outpatient (AMB) | payer MEDICARE, SELFPAY ==
--- NOTE | 2024-08-20 10:27 | MHC.PC.OV ---
Vital Signs 08/20/24 10:29 Height 5 ft 2 in Weight 169 lb 6 oz BMI 31.0 BP 138/78 Blood Pressure Location Lt brachial Position Sitting Pulse 83 Pulse Source Pulse Oximeter Pulse Oximetry (%) 96 Oxygen Delivery Method Room Air Intake Visit Reasons: Annual Physical Intake Note: Patient is here today for a physical. Mammo 07/10/24, Due Colonoscopy. Flu already Beet Flumer Required: No Shipping Hand: Not Required per policy Accompanied by: Self / Same As Patient Allergies naproxen [NAPROXEN] Allergy (Severe, Verified 08/20/24 10:47) ANGIOEDEMA, rash,swelling,SOB penicillin G [Penicillin G] Allergy (Intermediate, Verified 08/20/24 10:47) RASH tramadol Allergy (Intermediate, Verified 08/20/24 10:47) vomiting, headaches Medication List - Last Reconciled 08/20/24 by Briseyda Kramer MD blood sugar diagnostic (FreeStyle Lite Strips) 1 strip miscellaneous BID lisinopril 2.5 mg PO DAILY metformin ER 500 mg PO BEDTIME rosuvastatin 10 mg PO DAILY venlafaxine 75 mg PO BID Tobacco use date assessed: 08/20/24 Fall risk assessment: No Falls in past year Last assessed Fall Risk: 08/20/24 Dental Screening Dental Screen Date: 02/10/24 HPI Annual Physical HPI Details 79 year-old lady with past medical history significant for diabetes mellitus, hyperlipidemia , osteoporosis, hypertension, and history of depression currently in remission, here today for physical exam. Up-to-date with her screening mammogram, done 07/10/2024. Last bone density scan was done in 2022 which showed presence of osteoporosis in left femoral neck, normal in AP spine and left femur. Last colonoscopy was [place] [address] Liang which showed normal findings. Does not want to get further screenings done. Has been feeling well, blood pressure stable controlled on current dose of lisinopril 2.5 mg daily, no complaints at present time. [facility] Medical History (Updated 08/23/24 @ 23:14 by Briseyda Kramer MD) Osteoporosis Depression, major, in remission Sialoadenitis of submandibular gland Type 2 diabetes mellitus without complication, without long-term current use of insulin Dyslipidemia Essential hypertension Surgical History History of breast biopsy History of total abdominal hysterectomy Family History Father CVD (cardiovascular disease) Mother CVD (cardiovascular disease) Maternal Aunt Breast cancer Sister Hypertension Son Asthma Son Bipolar 1 disorder Sister Diabetes Social History Housing: Apartment Alcohol intake: former Patient Tobacco Use Status: Never used Tobacco Tobacco use type: Cigarette e-Cigarette/Vaping Use: Never Used Second Hand Smoke Exposure: No service: No Current occupational status: retired Cognitive needs: No Hearing needs: No Vision needs: Yes Questionnaire PHQ-9 Over the last 2 weeks, how often have you been bothered by any of the following problems? 1. Little interest or pleasure in doing things: not at all 2. Feeling down, depressed, or hopeless: not at all 3. Trouble falling or staying asleep, or sleeping too much: not at all 4. Feeling tired or having little energy: several days 5. Poor appetite or overeating: not at all 6. Feeling bad about yourself - or that you are a failure or have let yourself or your family down: not at all 7. Trouble concentrating on things, such as reading the newspaper or watching television: not at all 8. Moving or speaking so slowly that other people could have noticed. Or the opposite - being so fidgety or restless that you have been moving around a lot more than usual: not at all 9. Thoughts that you would be better off or of hurting yourself in some way: not at all Total score: 1 Depression Screening Interpretation: Negative Depression Screening Done: Yes 33881 - PHQ-9 Billing: Yes Source: Developed by Drs. Kayden Grajeda, Aant Elkins, Bacilio Wing and colleagues, with an educational amy from [employer]. Thrive Questionnaire Date Thrive assessed: 08/20/24 I am a: Patient What is your living situation today?: I have a steady place to live Within the past 12 months, did the food you bought not last and you didn't have the money to get more?: Never true Within the past 12 months, did you worry whether your food would run out before you got money to buy more?: Never true Do you have trouble paying for medicines?: No Do you have trouble getting transportation to medical appointments?: No Do you have trouble paying your heating and electricity bill?: No Do you have trouble taking care of your child, family member or friend?: No Do you have trouble with day-to-day activities such as bathing, preparing meals, shopping, managing finances, etc.?: No Are you currently unemployed and looking for a job?: No Are you interested in more education?: No THRIVE Score: 0 AUDIT C Alcohol Use Questionnaire (AUDIT-C) 1. How often do you have a drink containing alcohol?: Never Total Score: 0 GAB-7 AMB Questionnaire GAB-7 Date GAB - 7 assessed: 02/10/24 Feeling nervous, anxious, or on edge: 1 = Several days Not being able to stop or control worryin = Not at all Worrying too much about different things: 0 = Not at all Trouble relaxin = Not at all Being so restless that it is hard to sit still: 0 = Not at all Becoming easily annoyed or irritable: 0 = Not at all Feeling afraid as if something awful might happen: 0 = Not at all Total GAB-7 score (0-4 normal; 5-9 mild; 10-14 moderate; 15-21 severe): 1 Source: Developed by Drs. Kayden Grajeda, Anat Elkins, Bacilio Wing and colleagues, with an educational amy from [employer]. GAB-7 Assessment Billing GAB-7 Assessment Tool: GAB-7 Assessment 64284 Review of Systems Const Denies headache(s), Denies lethargy and Denies weakness Eyes Details: Sees Dr. Blackwell Reports no additional complaints ENT Denies dizziness, Denies headache(s) and Denies nasal congestion Card Denies chest pain, Denies chest pain with activity, Denies syncope, Denies rapid heart rate, Denies pedal edema, Denies lightheadedness, Denies palpitations and Denies dyspnea Resp Denies cough and Denies dyspnea GI Denies hematochezia and Denies change in stool character Denies urinary frequency, Denies difficulty voiding, Denies nocturia, Denies urinary incontinence and Denies urinary urgency Musc Details: no hx of fracture Denies abnormal gait, Denies muscle weakness, Denies numbness, Denies radiating pain into limb and Denies tingling Skin/Breast Denies breast pain, Denies breast mass and Denies rash Neuro Denies abnormal gait, Denies dizziness, Denies syncope, Denies headache(s), Denies numbness, Denies tingling and Denies weakness Psych Reports no additional complaints Endo Denies palpitations Jin/Lymph Reports no additional complaints Aller/Immun Reports no additional complaints Physical exam (Primary Care) Vital Signs: Last Vital Signs Pulse 83 08/20/24 10:29 BP 138/78 08/20/24 10:29 Pulse Ox 96 08/20/24 10:29 Oxygen Delivery Method Room Air 08/20/24 10:29 BMI result Body Mass Index 31.0 BMI Assessment/Plan discussion: High BMI High, discussed plan: lifestyle, weight reduction, dietary and physical activity Tobacco/Smoking Status: Tobacco use Status Tobacco use date assessed 08/20/24 08/20/24 10:30 Patient Tobacco Use Status Never used Tobacco 08/20/24 10:30 Tobacco use type Cigarette 08/20/24 10:30 e-Cigarette/Vaping Use Never Used 08/20/24 10:30 Depression Screening Interpretation: Negative Thrive Assessment: Date of Thrive Assessment Date Thrive assessed 02/10/24 08/20/24 10:30 Const Orientation/consciousness: patient oriented x3 [facility] General nose exam: Normal external nose present and No nasal discharge present Mouth: Normal oral and palatal mucosa present and moist mucous membranes Eyes General: appearance normal, both eyes and all related structures Neck Neck: Yes full ROM and Yes supple Chest Breast/axilla inspection: normal inspection of the breasts Breast/axilla palpation: normal palpation of the breasts Resp Auscultation: clear to auscultation bilaterally Cardio Other: S1-S2 present regular rate and rhythm GI Other: Normal bowel sounds, soft, nontender, no mass palpated Back/Spine/Pelvis Back: No back tenderness Skin General skin exam: no rashes or lesions noted Neuro General: patient oriented x3, gait normal, moves all extremities, Normal light touch and pain sensation and no focal motor deficits Extrem General: Yes no joint enlargement, Yes no clubbing, cyanosis or edema, Yes no pedal edema, Yes no calf tenderness and Yes normal gait Psych Appearance: grossly normal Speech and movement: Normal speech and movement present Affect: normal affect Attitude: cooperative Thought process: Normal thought process present Results AMB Hemoglobin A1c AMB Hemoglobin A1c 6.0 % Last Edit by BENITO Powers on 08/20/24 10:46 Results Reviewed Results Reviewed: Laboratory Last Values Hgb A1c (Clinic) 6.0 % (4.0-6.0) 08/20/24 10:27 Coding Level of Care Code Est Pt Prev Care >65y(07940) Diagnoses Annual visit for general adult medical examination with abnormal findings Z00.01 Age-related osteoporosis without current pathological fracture M81.0 Osteoporosis type: age-related Presence of current pathological fracture: without current pathological fracture Essential hypertension I10 Dyslipidemia E78.5 Type 2 diabetes mellitus without complication, without long-term current use of insulin E11.9 Depression, major, in remission F32.5 Additional Codes GAB-7 Assessment Billing - GAB-7 Assessment Tool: GAB-7 Assessment 58247 ([id number]) Assessment & Plan Assessment & Plan (1) Annual visit for general adult medical examination with abnormal findings: Code(s): Z00.01 - Encounter for general adult medical examination with abnormal findings Plan: Will check appropriate labs. Recommended dental visit every 6 months and yearly eye exams, for diabetes retinopathy screening. Take adequate calcium in diet and vitamin-D 3 at 2000 IU per cap once a day, in addition to weight-bearing exercises to help maintain good muscle tone and weight control. Instructed to do self-breast exam, and continue to get yearly mammogram. . Last colonoscopy was done in [address] Liang with normal findings, patient no longer wants to get screening done. Up-to-date with her flu vaccine, pneumococcal vaccine and shingles vaccination. Reminded to get her COVID booster (2) Osteoporosis: Code(s): M81.0 - Age-related osteoporosis without current pathological fracture Category: Medical Qualifiers: Osteoporosis type: age-related Presence of current pathological fracture: without current pathological fracture Qualified Code(s): M81.0 - Age-related osteoporosis without current pathological fracture Plan: Will start on alendronate 70 mg per tablet to take once a week. Discussed proper way of taking medication, and stressed importance of taking regular vitamin-D 3 supplements at least 2000 units daily, take adequate calcium from dietary sources and get regular weight-bearing exercise. Repeat another bone density scan a year after starting alendronate. (3) Essential hypertension: Code(s): I10 - Essential (primary) hypertension Category: Medical Plan: Continue lisinopril 2.5 mg daily (4) Dyslipidemia: Code(s): E78.5 - Hyperlipidemia, unspecified Category: Medical Plan: Fasting lipid panel ordered today. Continue with rosuvastatin 10 mg daily (5) Type 2 diabetes mellitus without complication, without long-term current use of insulin: Code(s): E11.9 - Type 2 diabetes mellitus without complications Category: Medical Plan: Hemoglobin A1c today is at 6%. Continue with metformin ER 500 mg at night, reminded to get yearly diabetes retinopathy screening, R. Reinforced diabetic diet and regular exercise with patient. Patient advised to inspect feet daily, for any signs of injury, callus or infection. Compliance with diet and regular exercise again stressed. Blood pressure goal is less than 130/80, goal LDL is less than 100 and goal hemoglobin A1c is less than 7% (6) Depression, major, in remission: Code(s): F32.5 - Major depressive disorder, single episode, in full remission Category: Medical Plan: Currently on venlafaxine 75 mg 1 tablet twice a day Orders: Orders Lipid Panel 08/20/24 E11.9 - Type 2 diabetes mellitus without complications, E78.5 - Hyperlipidemia, unspecified, I10 - Essential (primary) hypertension, M81.0 - Age-related osteoporosis without current pathological fracture Vitamin D 25-OH Total 08/20/24 E11.9 - Type 2 diabetes mellitus without complications, E78.5 - Hyperlipidemia, unspecified, I10 - Essential (primary) hypertension, M81.0 - Age-related osteoporosis without current pathological fracture AMB Hemoglobin A1c 08/20/24 E11.9 - Type 2 diabetes mellitus without complications XR DEXA axial skeleton 07/16/25 M81.0 - Age-related osteoporosis without current pathological fracture, Z51.81 - Encounter for therapeutic drug level monitoring, 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 Alanine Aminotransferase 08/20/24 E11.9 - Type 2 diabetes mellitus without complications, E78.5 - Hyperlipidemia, unspecified, I10 - Essential (primary) hypertension, M81.0 - Age-related osteoporosis without current pathological fracture Aspartate Amino Transferase 08/20/24 E11.9 - Type 2 diabetes mellitus without complications, E78.5 - Hyperlipidemia, unspecified, I10 - Essential (primary) hypertension, M81.0 - Age-related osteoporosis without current pathological fracture Basic Metabolic Panel Fasting 08/20/24 E11.9 - Type 2 diabetes mellitus without complications, E78.5 - Hyperlipidemia, unspecified, I10 - Essential (primary) hypertension, M81.0 - Age-related osteoporosis without current pathological fracture Medications: New alendronate Take in the morning an hour before breakfast or lunch only with a full glass of water, do not eat or drink after taking the medicine for an hour and do not lie down right away after taking the medication 70 mg PO QWEEK 3 months 13 tabs 4RF Refilled rosuvastatin 10 mg PO DAILY 90 tabs 1RF lisinopril 2.5 mg PO DAILY 90 tabs 1RF blood sugar diagnostic (FreeStyle Lite Strips) 1 strip miscellaneous BID 200 strips 1RF for diabetes mellitus E11.9 - Type 2 diabetes mellitus without complications
[2024-08-20 10:29] VITALS: BP 138/78; PULSE 83; O2SAT 96; BMI 31.0
== END 2024-08-20 12:34 | disposition home or self-care (01) ==
PROVIDERS: PCP Internal Medicine; Visit Provider Internal Medicine
DX: Z00.00 Encounter for general adult medical examination without abnormal findings (principal); M81.0 Age-related osteoporosis without current pathological fracture; E11.69 Type 2 diabetes mellitus with other specified complication; F32.5 Major depressive disorder, single episode, in full remission; I10 Essential (primary) hypertension; E78.5 Hyperlipidemia, unspecified

== ENCOUNTER → 2024-08-20 09:41 | Outpatient (BNVA) | payer MEDICARE, SELFPAY | PROVIDERS: PCP Internal Medicine; Visit Provider Internal Medicine ==

== ENCOUNTER 2024-08-20 11:07 | Outpatient (REF) | payer MEDICARE, SELFPAY ==
[2024-08-20 14:16] LABS: Alanine Aminotransferase 28 U/L (0-31); Anion Gap 11 (12-20); Aspartate Amino Transferase 30 U/L (5-31); Blood Urea Nitrogen 15 mg/dL (9-16); Carbon Dioxide 30 mmol/L (22-29); Chloride 105 mmol/L (96-108); Cholesterol 182 mg/dL (<200); Estimated Glomerular Filt Rate > 60; Glucose Fasting 102 mg/dL (60-99); HDL Cholesterol 52 mg/dL (>40); LDL Cholesterol Calculated 95 mg/dL (<100); Sodium 141 mmol/L (135-145); Triglycerides 178 mg/dL (<150)
== END 2024-08-20 11:08 | disposition home or self-care (01) ==
LOC: HO.HMGCLDS 11:07
PROVIDERS: PCP Internal Medicine; Visit Provider Internal Medicine
DX: Z00.01 Encounter for general adult medical examination with abnormal findings (principal); M81.0 Age-related osteoporosis without current pathological fracture; I10 Essential (primary) hypertension; E78.5 Hyperlipidemia, unspecified; E11.9 Type 2 diabetes mellitus without complications; F32.5 Major depressive disorder, single episode, in full remission; Z79.84 Long term (current) use of oral hypoglycemic drugs; Z79.899 Other long term (current) drug therapy
CPT/HCPCS: 36415; 80048; 80061; 82306; 83036; 84450; 84460; 96127; 99397

== ENCOUNTER 2024-10-05 04:45 | Emergency (ER) | payer MEDICARE, SELFPAY ==
--- NOTE | 2024-10-05 | ECG_ITS ---
Test Reason : sob Blood Pressure : / mmHG Vent. Rate : 072 BPM Atrial Rate : 072 BPM P-R Int : 130 ms QRS Dur : 088 ms QT Int : 412 ms P-R-T Axes : 047 -21 029 degrees QTc Int : 451 ms Normal sinus rhythm Normal ECG When compared with ECG of 09-MAR-2022 09:02, No significant change was found Referred By: Generic ED Physician Electronically Signed By:Star Olson
--- NOTE | ~2024-10-05 | XR_ITS ---
EXAMINATION: XR CHEST CLINICAL INFORMATION: sob COMPARISON: March 09, 2022 TECHNIQUE: Frontal view of the chest was obtained. FINDINGS: The cardiomediastinal silhouette is normal. There is no focal lung consolidation or pleural effusions. The bony structures and the soft tissues are unremarkable. XR/XR chest 1V IMPRESSION: No acute cardiopulmonary process. Electronically signed by: Lio Damon MD 10/05/2024 06:21 AM [facility]
[2024-10-05 04:53] VITALS: BP 165/77; BP 187/80; PULSE 75; PULSE 80; RESP 17; TEMP 36.9; O2SAT 99; BMI 14.5
--- NOTE | 2024-10-05 05:06 | ED_ITS ---
HPI - URI/Sore Throat General Chief Complaint: Upper Respiratory Symptoms Stated Complaint: CP 7/10 x3 days, sick x3 days pain worse w/ cough Time Seen by Provider: 10/05/24 04:53 Source: patient and EMS Mode of arrival: EMS Limitations: no limitations History of Present Illness ED Provider: Dr. Aleshia Morales HPI Narrative: Patient comes to the emergency room complaining of 3 days of coughing, bilateral chest pain, subjective fever. Patient denies any chest pain at this time, no shortness of breath. Denies nausea vomiting or diarrhea. Patient states that she lives by herself, she was scared that she has been having symptoms for 3 days and decided to come to the emergency room. Related Data Previous Rx's ?Medication ?Instructions ?Recorded metformin 500 mg tablet,extended 500 mg PO BEDTIME #90 tabs 02/10/24 release 24 hr venlafaxine 75 mg tablet 75 mg PO BID #180 tabs 08/06/24 alendronate 70 mg tablet 70 mg PO QWEEK 3 months #13 tabs 08/20/24 blood sugar diagnostic (FreeStyle 1 strip miscellaneous BID for 08/20/24 Lite Strips) diabetes mellitus #200 strips lisinopril 2.5 mg tablet 2.5 mg PO DAILY #90 tabs 09/02/24 rosuvastatin 10 mg tablet 10 mg PO DAILY #90 tabs 09/02/24 Allergies Allergy/AdvReac Type Severity Reaction Status Date / Time naproxen [NAPROXEN] Allergy Severe ANGIOEDEMA, Verified 10/05/24 04:56 rash,swelling,SOB penicillin G [Penicillin G] Allergy Intermediate RASH Verified 10/05/24 04:56 tramadol Allergy Intermediate vomiting, Verified 10/05/24 04:56 headaches Review of Systems 2 Review of Systems: Constitutional : No Weight loss, complaining of subjective fever, chills, fatigue and generalized malaise ENT/Mouth : No Hearing loss, No Ear Pain, No Nasal Congestion, No Sinus Pain, No Hoarseness, No sore throat, No Rhinorrhea, No Swallowing Difficulty Eyes: No Eye Pain, No Swelling, No Redness, No Foreign Body, No Discharge, No Vision Changes Cardiovascular : Complaining of 3 days of constant Chest Pain, No SOB, No Dyspnea on Exertion, No Orthopnea, No Edema, No Palpitations Respiratory : No Cough, No Sputum, No Wheezing, No Smoke Exposure, No Dyspnea Gastrointestinal : No Nausea, No Vomiting, No Diarrhea, No Constipation, No abdominal Pain, No Hematochezia, No Melena Genitourinary : no irregular bleeding, No Dysuria, No Urinary Frequency, No Hematuria, No Urinary Incontinence, No Urgency, No Flank Pain, No Urinary Flow Changes, No Hesitancy Musculoskeletal : No joint pain, No Myalgias, No Joint Swelling Skin : No Skin Lesions, No rash Neuro : No Weakness, No Numbness, No Paresthesias, No Loss of Consciousness, No Dizziness, No Headache Psych : No Anxiety/Panic, No Depression, No SI/HI/AH/VH, No Social Issues, Heme/Lymph: No Bruising, No Bleeding,No Lymphadenopathy Endocrine : No Polyuria, No Polydipsia, No Temperature Intolerance [facility] Past Medical History Medical History Osteoporosis Depression, major, in remission Sialoadenitis of submandibular gland Type 2 diabetes mellitus without complication, without long-term current use of insulin Dyslipidemia Essential hypertension Surgical History History of breast biopsy History of total abdominal hysterectomy Family History Family History Father CVD (cardiovascular disease) Mother CVD (cardiovascular disease) Maternal Aunt Breast cancer Sister Hypertension Son Asthma Son Bipolar 1 disorder Sister Diabetes Social History Social History Housing: Apartment Alcohol intake: former Patient Tobacco Use Status: Never used Tobacco Tobacco use type: Cigarette e-Cigarette/Vaping Use: Never Used Second Hand Smoke Exposure: No Advance Directives: No Advance Directives Information Provided: Yes Do you have a plan to hurt others: No Plan service: No Current occupational status: retired Cognitive needs: No Hearing needs: No Vision needs: Yes Physical Exam 2 Vital Signs: Vital Signs: Last Vital Signs Temp 98.4 F 10/05/24 04:53 Pulse 75 10/05/24 04:53 Resp 17 10/05/24 04:53 BP 187/80 H 10/05/24 04:53 Pulse Ox 99 10/05/24 04:53 O2 Del Method Room Air 10/05/24 04:53 BMI result Body Mass Index 14.5 Const: Other: Appearance: Alert. Oriented X3. No acute distress. Eyes: Pupils equal, round and reactive to light. ENT: Pharynx normal. Neck: Normal inspection. Neck supple. No lymph nodes noted. No crepitus CVS: Normal heart rate and rhythm. Pulses normal. Normal S1 and S2, reproducible chest pain to palpation Respiratory: No respiratory distress. Breath sounds normal. No Wheezing. No rales Abdomen: Soft and nontender. No rigidity. No distention. Skin: Skin warm and dry. Normal skin color. Normal skin turgor. Extremities: No lower extremity edema. No Lacerations. No Rash Neuro: Oriented X 3. No motor deficit. No sensory deficit. Moving all extremities. No slurred speech. CN 2 through 12 grossly intact Psych: calm, cooperative, tearful Course Course Course Narrative: Patient's labs and imaging pending Medical Decision Making Medical Decision Making [facility] Narrative: My interpretation of EKG: Sinus rhythm, heart rate 72, no ST segment depression or elevation, nonspecific T-wave inversion in lead 3, QTC 451 My interpretation of labs: Patient's hematology and chemistry at baseline, troponin negative. Chest x-ray does not show any acute abnormality Patient has had constant chest pain for 3 days now. Patient likely has musculoskeletal pain versus pleurisy. Source of chest pain unlikely to be of cardiac origin. After 72 hours of constant chest pain, head troponin would probably be elevated by now. At this time, patient states that she feels better, no chest pain or shortness of breath. Differential Diagnosis Differential Diagnoses: The differential diagnosis associated with the presentation includes (As above) Admission/Observation Consideration of admission/observation: Escalation of care including admission/observation considered (Given patient's length of symptoms, observation was considered.) Lab Data [facility] Lab Attestation statement: I reviewed the patient's lab results. 10/05/24 05:02 10/05/24 05:02 Labs: Lab Results 10/05/24 10/05/24 Range/Units 05:01 05:02 WBC 4.7 L (4.8-10.8) X10*3/uL RBC 3.95 L (4.20-5.50) X10*6/uL Hgb 12.6 (12.0-16.0) g/dl Hct 37.0 (37.0-47.0) % MCV 93.7 (80.0-98.0) fL MCH 31.9 (27.0-33.0) pg MCHC 34.1 (31.0-35.0) g/dl RDW 13.3 (11.0-16.0) % Plt Count 172 (160-400) X10*3/uL MPV 9.7 (9.4-12.3) fL Immature Gran % (Auto) 0.4 (0.0-0.4) % Neut % (Auto) 49.3 (45-73) % Lymph % (Auto) 37.1 (20-40) % Tillman % (Auto) 7.0 (2-11) % Eos % (Auto) 4.9 H (0-4) % Baso % (Auto) 1.3 (0-2) % Lymph # (Auto) 1.8 (1.2-4.9) X10*3/uL Tillman # (Auto) 0.3 (0.1-1.2) X10*3/uL Eos # (Auto) 0.2 (0.0-0.4) X10*3/uL Baso # (Auto) 0.1 (0.0-0.2) X10*3/uL Abs Immat Gran (auto) 0.02 (0.00-0.03) X10*3/uL Absolute Neuts (auto) 2.3 (2.0-8.3) x10*3/uL Absolute Nucleated RBC 0.000 (0.0-0.012) X10*3/uL Nucleated RBC % (auto) 0.0 (0.0-0.2) /100WBC Sodium 143 (135-145) mmol/L Potassium 4.2 (3.3-5.1) mmol/L Chloride 106 (96-108) mmol/L Carbon Dioxide 26 (22-29) mmol/L Anion Gap 15 (12-20) BUN 14 (9-16) mg/dL Creatinine 0.79 (0.5-1.4) mg/dL Estim Creat Clear Calc 33.8 Estimated GFR > 60 Random Glucose 129 H (60-115) mg/dL Calcium 9.5 (8.4-10.2) mg/dL Total Bilirubin 0.3 (0.0-1.0) mg/dL AST 32 H (5-31) U/L ALT 25 (0-31) U/L Alkaline Phosphatase 62 (39-117) U/L Troponin I High Sens < 2.7 (<3.5-17.0) ng/L B-Natriuretic Peptide 21 (<100) pg/mL Total Protein 7.3 (6.5-8.0) g/dL Albumin 4.3 (3.5-5.0) g/dL Influenza Type A (PCR) NEGATIVE (Negative) Influenza Type B (PCR) NEGATIVE (Negative) RSV RNA Qual (PCR) NEGATIVE (Negative) SARS-CoV-2 RNA (RT-PCR) NEGATIVE (Negative) Independent Interpretation I performed an independent interpretation of an: Plain X-Ray Radiology Impression Discussion of test interpretation with radiology: I have reviewed the radiologist's reading. Radiologist Impression: The cardiomediastinal silhouette is normal. There is no focal lung consolidation or pleural effusions. The bony structures and the soft tissues are unremarkable. XR/XR chest 1V IMPRESSION: No acute cardiopulmonary process Discharge Plan Discharge Clinical Impression: Viral URI, Atypical chest pain Patient Disposition: Home, Self-Care Instructions: Chest Pain (ED), Upper Respiratory Infection (ED) Additional Instructions: Please follow-up with your primary care physician tomorrow. If you have any worsening or new symptoms, please return to the emergency room or call 911 Prescriptions: No Action venlafaxine 75 mg tablet 75 mg PO BID Qty: 180 1RF lisinopril 2.5 mg tablet 2.5 mg PO DAILY Qty: 90 1RF rosuvastatin 10 mg tablet 10 mg PO DAILY Qty: 90 1RF metformin 500 mg tablet extended release 24 hr 500 mg PO BEDTIME Qty: 90 3RF FreeStyle Lite Strips Strip 1 strip miscellaneous BID Qty: 200 1RF alendronate 70 mg tablet 70 mg PO QWEEK 90 Days Qty: 13 4RF Rx Instructions: Take in the morning an hour before breakfast or lunch only with a full glass of water, do not eat or drink after taking the medicine for an hour and do not lie down right away after taking the medication Print Language: Kenyan
[2024-10-05 05:07] LABS: Basophils Absolute Auto 0.1 X10*3/uL (0.0-0.2); Basophils Percent Auto 1.3 % (0-2); Eosinophils Absolute Auto 0.2 X10*3/uL (0.0-0.4); Eosinophils Percent Auto 4.9 % (0-4); Hemoglobin 12.6 g/dl (12.0-16.0); Imm Gran Abs Auto 0.02 X10*3/uL (0.00-0.03); Imm Gran Pct Auto 0.4 % (0.0-0.4); Lymphocytes Absolute Auto 1.8 X10*3/uL (1.2-4.9); Lymphocytes Percent Auto 37.1 % (20-40); MANUAL DIFF FLAG NO; Mean Corpuscular HGB Conc 34.1 g/dl (31.0-35.0); Mean Corpuscular Hemoglobin 31.9 pg (27.0-33.0); Mean Corpuscular Volume 93.7 fL (80.0-98.0); Mean Platelet Volume 9.7 fL (9.4-12.3); Monocytes Absolute Auto 0.3 X10*3/uL (0.1-1.2); Neutrophils Absolute Auto 2.3 x10*3/uL (2.0-8.3); Neutrophils Percent Auto 49.3 % (45-73); Platelet Count 172 X10*3/uL (160-400); Red Blood Count 3.95 X10*6/uL (4.20-5.50); Red Cell Distribution Width 13.3 % (11.0-16.0); White Blood Count 4.7 X10*3/uL (4.8-10.8)
[2024-10-05 05:22] LABS: Alanine Aminotransferase 25 U/L (0-31); Albumin Level 4.3 g/dL (3.5-5.0); Alkaline Phosphatase 62 U/L (39-117); Anion Gap 15 (12-20); Aspartate Amino Transferase 32 U/L (5-31); Bilirubin Total 0.3 mg/dL (0.0-1.0); Blood Urea Nitrogen 14 mg/dL (9-16); Calcium 9.5 mg/dL (8.4-10.2); Carbon Dioxide 26 mmol/L (22-29); Chloride 106 mmol/L (96-108); Creatinine Clr Calc Pharmacy 33.8; Estimated Glomerular Filt Rate > 60; Glucose Random 129 mg/dL (60-115); Potassium 4.2 mmol/L (3.3-5.1); Sodium 143 mmol/L (135-145); Total Protein 7.3 g/dL (6.5-8.0)
[2024-10-05 05:28] LABS: B Type Natriuretic Peptide 21 pg/mL (<100)
[2024-10-05 05:29] LABS: Troponin-I High Sensitivity < 2.7 ng/L (<3.5-17.0)
[2024-10-05 05:44] LABS: Influenza A PCR NEGATIVE (Negative); Influenza B PCR NEGATIVE (Negative); Resp Syncy Virus RNA Qual PCR NEGATIVE (Negative); SARS COV2 PCR INHOUSE NEGATIVE (Negative)
--- NOTE | 2024-10-05 06:08 | MHC.EDTECH ---
Contacted [facility] about unread image at [phone], they said doctor is on a trauma case they will get to it when they can
[2024-10-05 06:41] VITALS: BP 152/71; PULSE 67; RESP 16; TEMP 36.8; O2SAT 98
--- NOTE | 2024-10-05 06:42 | PC.NURSE ---
Iv removed, reviewed discharge instructions with pt, pt verbalized understanding with no sign of respiratory distress.
[2024-10-05 06:43] VITALS: BP 152/71; PULSE 67; RESP 16; TEMP 36.8; O2SAT 98
== END 2024-10-05 06:44 | disposition home or self-care (01) ==
PROVIDERS: Emergency Provider Emergency Medicine; PCP Internal Medicine
DX: J06.9 Acute upper respiratory infection, unspecified (principal); R07.89 Other chest pain; Z03.818 Encounter for observation for suspected exposure to other biological agents ruled out; R05.9 Cough, unspecified; E11.9 Type 2 diabetes mellitus without complications; I10 Essential (primary) hypertension; E78.5 Hyperlipidemia, unspecified; Z79.84 Long term (current) use of oral hypoglycemic drugs; Z79.02 Long term (current) use of antithrombotics/antiplatelets; Z79.899 Other long term (current) drug therapy
CPT/HCPCS: 0241U; 36415; 71045; 80053; 83880; 84484; 85025; 93005; 99283; 99285

== ENCOUNTER → 2024-10-05 04:52 | Outpatient (BNV) | payer MEDICARE, SELFPAY | PROVIDERS: Emergency Provider Emergency Medicine; PCP Internal Medicine; Visit Provider Internal Medicine Cardiovascular Disease | DX: R07.9 Chest pain, unspecified (principal); R06.02 Shortness of breath | CPT/HCPCS: 93010 ==

== ENCOUNTER 2024-10-12 10:00 | Outpatient (AMB) | payer MEDICARE, SELFPAY ==
--- NOTE | 2024-10-12 10:06 | MHC.OFFWIV ---
Intake Vital Signs 10/12/24 10:10 Weight 169 lb BP 130/80 Blood Pressure Location Lt brachial Position Sitting Pulse 88 Pulse Source Pulse Oximeter Temp 97.6 F Temp Source Oral Pulse Oximetry (%) 94 Oxygen Delivery Method Room Air Intake Visit Reasons: EP asthma, chest pain, headache Intake Note: Patien there for SOB,chest tightness and headache that has been present for about 2 weeks. Patient Tobacco Use Status: Never used Tobacco Allergies naproxen [NAPROXEN] Allergy (Severe, Verified 10/12/24 10:11) ANGIOEDEMA, rash,swelling,SOB penicillin G [Penicillin G] Allergy (Intermediate, Verified 10/12/24 10:11) RASH tramadol Allergy (Intermediate, Verified 10/12/24 10:11) vomiting, headaches Do you need a note to return to daycare/school/sports/work: No HPI EP asthma, chest pain, headache HPI Details This note is constructed using voice recognition software. While every effort has been made to ensure accuracy, fruit checker errors may have been included. The patient is a 79 year old female who presents to the clinic today with URI symptoms including cough, congestion, bilateral chest wall pain, headache for the past week and a half. She was seen in ER on 10/05/24 for the same, and advised to follow with her pcp. In the ER she had CXR and viral panel which were negative. She has since been taking guaifenesin 400 mg once daily for her symptoms, which do not seem to resolve her symptoms as well as Tylenol for the headache which seemed to help better. She reports shortness of breath, however denies any difficulty with speaking, catching her breath, or any limitation to her activities. [facility] Medical History Osteoporosis Depression, major, in remission Sialoadenitis of submandibular gland Type 2 diabetes mellitus without complication, without long-term current use of insulin Dyslipidemia Essential hypertension Surgical History History of breast biopsy History of total abdominal hysterectomy Family History Father CVD (cardiovascular disease) Mother CVD (cardiovascular disease) Maternal Aunt Breast cancer Sister Hypertension Son Asthma Son Bipolar 1 disorder Sister Diabetes Social History Housing: Apartment Alcohol intake: former Patient Tobacco Use Status: Never used Tobacco Tobacco use type: Cigarette e-Cigarette/Vaping Use: Never Used Second Hand Smoke Exposure: No service: No Current occupational status: retired Cognitive needs: No Hearing needs: No Vision needs: Yes Review of Systems Const All systems reviewed & are unremarkable except as noted in HPI and below Physical Exam Vital Signs: Last Vital Signs Temp 97.6 F 10/12/24 10:10 Pulse 88 10/12/24 10:10 BP 130/80 10/12/24 10:10 Pulse Ox 94 10/12/24 10:10 Oxygen Delivery Method Room Air 10/12/24 10:10 Const General: cooperative, healthy appearing, comfortable and no acute distress Orientation/consciousness: patient oriented x3 Limitations: no limitations HEENT Head: Yes normal to inspection Ears: hearing grossly normal bilaterally, external ears normal and TM's normal bilaterally General nose exam: Normal external nose present, Normal nares present and No nasal discharge present Face and sinus: Yes normal facial exam and Yes sinuses nontender Mouth: Normal oral and palatal mucosa present and moist mucous membranes Throat: Yes tonsils normal, Yes uvula midline and Yes posterior oropharynx abnormal (Erythema) Eyes General: appearance normal, both eyes and all related structures Neck Neck: Yes normal visual inspection Resp Effort & Inspection: normal respiratory effort, able to speak in complete sentences, Actively coughing, no respiratory distress, not tachypneic, no tripod positioning and no use of accessory muscles Auscultation: clear to auscultation bilaterally Cardio Jugular venous distension: no JVD Rate: regular rate Rhythm: regular rhythm Heart sounds: S1 normal heart sound present, S2 normal heart sound present, no click, no gallops, no murmurs and no rubs Skin General skin exam: no rashes or lesions noted, elasticity normal and turgor normal Neuro General: patient oriented x3 Extrem General: Yes normal to inspection and Yes no clubbing, cyanosis or edema Assessment & Plan Assessment & Plan (1) URI (upper respiratory infection): Code(s): J06.9 - Acute upper respiratory infection, unspecified Qualifiers: URI type: unspecified URI Qualified Code(s): J06.9 - Acute upper respiratory infection, unspecified Plan: Viral swab deferred due to previous testing. Reviewed at home support methods including hydration, humidification, vix vapor rub, sinus rinse, and otc treatment options. Reviewed appropriate use guaifenesin, pointing out instructions on bottle including 1 tablet every 4 hours as needed for symptomatic management. Refill provided for albuterol inhaler today, which she reports she has not had prescribed in several years. Advised follow up with worsening symptoms such as dyspnea at rest, which would require emergent evaluation. Plan See above for full details and plan. Courtesy refill provided for diabetic test strips per patient request. Medications: New albuterol sulfate 90 mcg/actuation 1 - 2 puffs inhalation QID PRN 6.7 grams 0RF Shortness Of Breath Or Wheezing Refilled blood sugar diagnostic (FreeStyle Lite Strips) 1 strip miscellaneous BID 200 strips 1RF for diabetes mellitus E11.9 - Type 2 diabetes mellitus without complications Coding Level of Care Code Est Pt Level 3 (72405) Diagnoses Upper respiratory tract infection, unspecified type J06.9 URI type: unspecified URI
[2024-10-12 10:10] VITALS: BP 130/80; PULSE 88; TEMP 36.4; O2SAT 94
== END 2024-10-12 10:43 | disposition home or self-care (01) ==
PROVIDERS: PCP Internal Medicine; Visit Provider Registered Nurse
DX: J06.9 Acute upper respiratory infection, unspecified (principal)

== ENCOUNTER → 2024-10-12 10:00 | Outpatient (BNVA) | payer MEDICARE, SELFPAY | PROVIDERS: PCP Internal Medicine; Visit Provider Registered Nurse | DX: J06.9 Acute upper respiratory infection, unspecified (principal) | CPT/HCPCS: 99212 ==

== ENCOUNTER 2025-02-15 07:10 | Outpatient (REF) | payer MEDICARE, SELFPAY ==
[2025-02-15 11:02] LABS: Estimated Average Glucose 123 mg/dL; Hemoglobin A1C 131.5392 umol/L; Hemoglobin A1c % 5.9 % (<6.0)
[2025-02-15 11:28] LABS: Alanine Aminotransferase 26 U/L (0-31); Anion Gap 13 (12-20); Aspartate Amino Transferase 32 U/L (5-31); Blood Urea Nitrogen 12 mg/dL (9-16); Calcium 9.5 mg/dL (8.4-10.2); Carbon Dioxide 28 mmol/L (22-29); Chloride 105 mmol/L (96-108); Cholesterol 196 mg/dL (<200); Estimated Glomerular Filt Rate > 60; Glucose Fasting 98 mg/dL (60-99); HDL Cholesterol 54 mg/dL (>40); LDL Cholesterol Calculated 108 mg/dL (<100); Potassium 4.3 mmol/L (3.3-5.1); Sodium 142 mmol/L (135-145); Triglycerides 172 mg/dL (<150)
[2025-02-15 11:47] LABS: Vitamin D 25-OH Total 45.3 ng/mL (>30)
== END 2025-02-15 07:11 | disposition home or self-care (01) ==
LOC: HO.HMGCLDS 07:10
PROVIDERS: PCP Internal Medicine; Visit Provider Internal Medicine
DX: M81.0 Age-related osteoporosis without current pathological fracture (principal); E11.9 Type 2 diabetes mellitus without complications; E78.5 Hyperlipidemia, unspecified; I10 Essential (primary) hypertension
CPT/HCPCS: 36415; 80048; 80061; 82306; 83036; 84450; 84460

== ENCOUNTER 2025-02-17 07:00 | Outpatient (REF) | payer MEDICARE, SELFPAY ==
[2025-02-17 11:24] LABS: Microalbum/Creatinine Ratio Ur 17.8 ug/mg cr (<30)
== END 2025-02-17 07:01 | disposition home or self-care (01) ==
LOC: HO.HMGCLNP 07:00
PROVIDERS: PCP Internal Medicine; Visit Provider Internal Medicine
DX: M81.0 Age-related osteoporosis without current pathological fracture (principal); E11.9 Type 2 diabetes mellitus without complications; I10 Essential (primary) hypertension; E78.5 Hyperlipidemia, unspecified
CPT/HCPCS: 82043; 82570

== ENCOUNTER 2025-03-09 07:39 | Outpatient (AMB) | payer MEDICARE, SELFPAY ==
--- NOTE | 2025-03-09 08:30 | MHC.OFFVIS ---
Vital Signs 03/09/25 08:33 Height 5 ft Weight 164 lb BMI 32.0 BP 124/64 Blood Pressure Location Rt brachial Position Sitting Pulse 84 Pulse Source Pulse Oximeter Pulse Oximetry (%) 96 Oxygen Delivery Method Room Air Intake Visit Reasons: INP-Headache Intake Note: Internal referral for headaches. Alliance Manager Required: No Accompanied by: Self / Same As Patient Allergies naproxen [NAPROXEN] Allergy (Severe, Verified 03/09/25 08:33) ANGIOEDEMA, rash,swelling,SOB penicillin G [Penicillin G] Allergy (Intermediate, Verified 03/09/25 08:33) RASH tramadol Allergy (Intermediate, Verified 03/09/25 08:33) vomiting, headaches Medication List - Last Reconciled 03/09/25 by ANU Eagle albuterol sulfate 90 mcg/actuation 1 - 2 puffs inhalation QID PRN alendronate 70 mg PO QWEEK 3 months blood sugar diagnostic (FreeStyle Lite Strips) 1 strip miscellaneous BID guaifenesin 400 mg PO Q4H PRN lisinopril 2.5 mg PO DAILY metformin ER 500 mg PO BEDTIME rosuvastatin 10 mg PO DAILY venlafaxine 75 mg PO BID HPI Comments Details: Right-handed 80-yr-old female presents for new pt evaluation of headache disorder. Pt reports she started having occasional headaches several ago, which worsened and became constant 2 yrs ago.. Denies any preceding causes, such as denies preceding infection, accident, injury. PMH and ROS are notable for:? General: Left neck enlarged lymph node- states for years HEENT: Denies vision changes- wears glasses and has regular diabetic eye exams, denies congestion. Musculoskeletal disorders or injury: denies usual neck or back pain. Osteoporosis, arthritis History of concussion/head injury: denies Mood d/o: Anxiety Respiratory d/o: Asthma- mild CV disease: HTN HLD Clotting or hematology d/o: denies Endocrine or metabolic d/o: Diabetes- well-controlled History of seizure: denies [History of syncope: denies] : denies GI d/o: Constipation: [employer]ING [employer]NEY: post-menopausal Family history of migraine or other headache disorder: mother, father, sister Lifestyle considerations: Sleep routine: Usual bedtime: 10pm and wake-up time: 5am Sleep difficulties: Endorses: Unsure snoring, difficulty sleeping- initiating sleep, daytime sleepiness, Fatigue, Gasping Arousals, Leg Cramps. Caffeine use: 2 cups per day- am and 12pm Substance use:denies Exercise:?at times- walks Employment:?retired Headache questionnaire:? Age/time of onset: Many years Preceding causes: No known causes Previous work-up: no h/o head imaging Types of headache disorders: 1 Typical headache characteristics: Prodrome symptoms: unsure Aura: none Pain intensity: moderate-severe Location, quality, characteristics: Bifrontal/temporal stabbing pressure Associated symptoms: mild photophobia, phonophobia, mild allodynia, fatigue, cognitive difficulties, activity intolerance. Postdrome: unsure Triggers: no known triggers Time of day: worse in the evening Duration and Frequency: near constant x's 2 yrs How does headache impact your life? has to lay down Current acute medication use/interventions: sometimes takes tylenol- helps a little Current preventative medication use: has been on venlafaxine for years Current non-pharmacological interventions: lays down w/ ice, PFSH Medical History (Updated 03/09/25 @ 10:13 by ANU Eagle) Sphenoid sinusitis Osteoporosis Depression, major, in remission Sialoadenitis of submandibular gland Type 2 diabetes mellitus without complication, without long-term current use of insulin Dyslipidemia Essential hypertension Surgical History History of breast biopsy History of total abdominal hysterectomy Family History Father CVD (cardiovascular disease) Mother CVD (cardiovascular disease) Maternal Aunt Breast cancer Sister Hypertension Son Asthma Son Bipolar 1 disorder Sister Diabetes Social History Housing: Apartment Alcohol intake: former Patient Tobacco Use Status: Never used Tobacco Tobacco use type: Cigarette e-Cigarette/Vaping Use: Never Used Second Hand Smoke Exposure: No service: No Current occupational status: retired Cognitive needs: No Hearing needs: No Vision needs: Yes Physical Exam Vital Signs: Last Vital Signs Pulse 84 03/09/25 08:33 BP 124/64 03/09/25 08:33 Pulse Ox 96 03/09/25 08:33 Oxygen Delivery Method Room Air 03/09/25 08:33 BMI result Body Mass Index 32.0 Const Orientation/consciousness: patient oriented x3 Resp Effort & Inspection: normal respiratory effort and able to speak in complete sentences Neuro Other: Mild palpable tenderness mid frontal scalp region Bilateral TMJ tightness Wears dentures Mallampati stage IV Limited cervical range of motion in all steen Bilateral posterior cervical tightness Mild forward head and shoulder posture Bilateral finger nodules. Muscle strength 5/5 throughout with the exception of symmetric bilateral week hand grasp. Light touch sensation intact throughout Poor tandem walk General: patient oriented x3 Cranial nerves: Yes CN's II-XII intact bilaterally Cognition (Neuro): normal cognition Gait exam (Neuro): Normal gait present Motor exam (neuro): 5/5 motor strength present throughout Deep tendon reflexes (DTR's): Right triceps reflex intensity grade: 2+, Left triceps reflex intensity grade: 2+, Rt Biceps (C5, C6): 2+, Left biceps reflex intensity grade: 2+, Right brachioradialis reflex intensity grade: 2+, Left brachioradialis reflex intensity grade: 2+, Right patellar reflex intensity grade: 2+ and Left patellar reflex intensity grade: 2+ Coordination: [id number] test normal, tandem gait normal and Romberg test negative Pupils: Normal pupillary reactivity/response: bilateral Psych Appearance: grossly normal Mental Status: mental status grossly normal Speech and movement: Normal speech and movement present Affect: normal affect Attitude: cooperative Thought process: Normal thought process present Results Reviewed Results Reviewed: 2020, CT/CT head/brain wo con IMPRESSION: No acute intracranial process seen. Bilateral chronic sphenoid sinusitis. Assessment & Plan Assessment & Plan (1) Cervical paraspinal muscle spasm: Code(s): M62.838 - Other muscle spasm Category: Medical (2) Worsening headaches: Comment: With chronic migraine without aura phenotype Code(s): R51.9 - Headache, unspecified Category: Medical (3) Sleep difficulties: Code(s): G47.9 - Sleep disorder, unspecified Category: Medical (4) Chronic migraine without aura: Code(s): G43.709 - Chronic migraine without aura, not intractable, without status migrainosus Category: Medical Plan Pt advised to undergo: Brain MRI with and without contrast- to assess for secondary etiologies and the patient greater than 70 years old with worsening headache, history of sphenoid sinusitis seen on previous head CT. Home sleep study to assess for sleep apnea PT eval and treat Home sleep study to assess for sleep apnea, which if present could be contributing to worsening headaches. For overall headache management: Optimize good self-care, including but not limited to maintaining a healthy diet, adequate fluid intake, adequate sleep, and engaging in regular physical activity. For acute headache treatment: Take acute medications at the first sign of headache, however stressed importance of avoiding acute medication overuse (especially with combined headache medications). Trial Sumatriptan 100mg tab, 1/2 - 1 tab (50-100mg) at onset of headache, may repeat in 2 hours. Max of 2 tabs (200mg) per 24 hours. May take sumatriptan with OTC Tylenol 650-1,000mg every 4-6 hours as needed.. Potential adverse effects of triptans, include but are not limited to nausea, fatigue, chest tightness/tingling (usually passes within a few minutes), medication overuse headaches. Previous acute migraine medication trials: Tylenol ineffective Acute migraine medication contraindications: DHE due to history of hypertension For headache prevention medication: Preventative medications should be taken routinely as prescribed for best effect, it may take several weeks for full effect to take effect. Start Riboflavin 400mg qam Start Magnesium 400mg qhs Continue venlafaxine- may work as a migraine/headache preventive agent Previous migraine prevention medication trials: None other Migraine prevention medication contraindications: Would avoid Aimovig or Qulipta at this time due to constipation. Pt seen in collaboration w/ Dr Kayley Garrett. Will follow-up upon review of above. We will plan for six-month follow-up in clinic, however patient states that this location is not easily accessible for her and she is not comfortable using telehealth technology, and she would prefer to have her care in either [place] or [facility]. Thus, she may continue to follow with Dr. Kramer, however we are happy to assist in managing patient's headache symptoms moving forward. Orders: Orders PT Evaluation and Treatment Today G43.709 - Chronic migraine without aura, not intractable, without status migrainosus, M62.838 - Other muscle spasm, R51.9 - Headache, unspecified MR head/brain wo/w con Today J32.3 - Chronic sphenoidal sinusitis, R51.9 - Headache, unspecified RT home sleep study Today G47.9 - Sleep disorder, unspecified, R06.83 - Snoring, R40.0 - Somnolence Medications: New sumatriptan succinate 50 - 100 mg orally at onset of headache, may repeat in 2 hrs PRN; max 2 tabs per day or 4 tabs/week (may take with Tylenol) 12 tabs 6RF migraine headache 30 days magnesium oxide may hold for loose stools 400 mg PO BEDTIME 30 tabs 6RF 30 days riboflavin (vitamin B2) 400 mg PO DAILY 30 tabs 6RF 30 days Coding Level of Care Code New Pt Level 4 (79300) Diagnoses Cervical paraspinal muscle spasm M62.838 Worsening headaches R51.9 Sleep difficulties G47.9 Chronic migraine without aura G43.709
[2025-03-09 08:33] VITALS: BP 124/64; PULSE 84; O2SAT 96; BMI 32.0
== END 2025-03-09 09:52 | disposition home or self-care (01) ==
LOC: HO.HSMS 07:40
PROVIDERS: PCP Internal Medicine; Visit Provider Nurse Practitioner Family
DX: M62.838 Other muscle spasm (principal); R51.9 Headache, unspecified; G47.9 Sleep disorder, unspecified; G43.709 Chronic migraine without aura, not intractable, without status migrainosus
CPT/HCPCS: 99204

== ENCOUNTER → 2025-03-09 07:39 | Outpatient (BNVA) | payer MEDICARE, SELFPAY | PROVIDERS: PCP Internal Medicine; Visit Provider Nurse Practitioner Family | DX: M62.838 Other muscle spasm (principal); G43.709 Chronic migraine without aura, not intractable, without status migrainosus; J32.3 Chronic sphenoidal sinusitis; R06.83 Snoring; R40.0 Somnolence | CPT/HCPCS: 99202 ==

== ENCOUNTER 2025-03-11 14:13 | Outpatient (AMB) | payer MEDICARE, SELFPAY ==
--- NOTE | 2025-03-11 14:44 | A.OFFPC_ITS ---
Vital Signs 03/11/25 14:56 Height 5 ft Weight 166 lb BMI 32.4 BP 128/60 Blood Pressure Location Lt brachial Position Sitting Respiration 15 Pulse 87 Pulse Source Pulse Oximeter Temp 98.6 F Temp Source Oral Pulse Oximetry (%) 97 Oxygen Delivery Method Room Air Intake Visit Reasons: 6m follow up - see comments Intake Note: Pt is here today for her 6mo. f/u Allergies naproxen [NAPROXEN] Allergy (Severe, Verified 03/11/25 15:16) ANGIOEDEMA, rash,swelling,SOB penicillin G [Penicillin G] Allergy (Intermediate, Verified 03/11/25 15:16) RASH tramadol Allergy (Intermediate, Verified 03/11/25 15:16) vomiting, headaches Medication List - Last Reconciled 03/11/25 by Briseyda Kramer MD albuterol sulfate 90 mcg/actuation 1 - 2 puffs inhalation QID PRN alendronate 70 mg PO QWEEK 3 months blood sugar diagnostic (FreeStyle Lite Strips) 1 strip miscellaneous BID lisinopril 2.5 mg PO DAILY magnesium oxide 400 mg PO BEDTIME 30 days metformin ER 500 mg PO BEDTIME riboflavin (vitamin B2) 400 mg PO DAILY 30 days rosuvastatin 10 mg PO DAILY sumatriptan succinate 50 - 100 mg orally at onset of headache, may repeat in 2 hrs PRN; max 2 tabs per day or 4 tabs/week (may take with Tylenol) 30 days venlafaxine 75 mg PO BID Tobacco use date assessed: 03/11/25 Fall risk assessment: No Falls in past year Last assessed Fall Risk: 03/11/25 Dental Screening Dental Screen Date: 03/11/25 Did you have a dental visit in the last 12 months?: No Did you have a dental problem in the last 6 months where you did not have access to dental care?: No Was dental information given to patient?: No HPI 6m follow up - see comments HPI Details 80-year-old lady with diabetes mellitus, currently takes metformin ER 500 mg at bedtime. Latest hemoglobin A1c is within normal limits at 5.9%. Her fasting lipids showed slightly elevated LDL cholesterol, currently on rosuvastatin 10 mg daily. Has hypertension currently stable and controlled on lisinopril 2.5 mg once a day. She has osteoporosis currently on alendronate, has an appointment for a r epeat bone density scan on 03/13/2025. No history of fractures. She has depression currently stable and controlled on venlafaxine 75 mg taken 1 tablet twice a day. She was seen by [facility] neurology and started on sumatriptan to take as needed for her migraine headache, she also was given a prescription for riboflavin for migraine prevention and magnesium supplements as well [facility] Medical History Sphenoid sinusitis Osteoporosis Depression, major, in remission Sialoadenitis of submandibular gland Type 2 diabetes mellitus without complication, without long-term current use of insulin Dyslipidemia Essential hypertension Surgical History History of breast biopsy History of total abdominal hysterectomy Family History Father CVD (cardiovascular disease) Mother CVD (cardiovascular disease) Maternal Aunt Breast cancer Sister Hypertension Son Asthma Son Bipolar 1 disorder Sister Diabetes Social History Housing: Apartment Alcohol intake: former Patient Tobacco Use Status: Never used Tobacco Tobacco use type: Cigarette e-Cigarette/Vaping Use: Never Used Second Hand Smoke Exposure: No service: No Current occupational status: retired Cognitive needs: No Hearing needs: No Vision needs: Yes Questionnaire PHQ-9 Over the last 2 weeks, how often have you been bothered by any of the following problems? 1. Little interest or pleasure in doing things: not at all 2. Feeling down, depressed, or hopeless: not at all 3. Trouble falling or staying asleep, or sleeping too much: not at all 4. Feeling tired or having little energy: several days 5. Poor appetite or overeating: not at all 6. Feeling bad about yourself - or that you are a failure or have let yourself or your family down: not at all 8. Moving or speaking so slowly that other people could have noticed. Or the opposite - being so fidgety or restless that you have been moving around a lot more than usual: not at all 9. Thoughts that you would be better off or of hurting yourself in some way: not at all Total score: 1 Depression Screening Interpretation: Negative (Controlled on venlafaxine) Depression Screening Done: Yes 37943 - PHQ-9 Billing: Yes Source: Developed by Drs. Kayden Grajeda, Anat Elkins, Bacilio Wing and colleagues, with an educational amy from [employer] Thrive Questionnaire Date Thrive assessed: 03/11/25 I am a: Patient What is your living situation today?: I have a steady place to live Within the past 12 months, did the food you bought not last and you didn't have the money to get more?: Never true Within the past 12 months, did you worry whether your food would run out before you got money to buy more?: Never true Do you have trouble paying for medicines?: No Do you have trouble getting transportation to medical appointments?: No Do you have trouble paying your heating and electricity bill?: No Do you have trouble taking care of your child, family member or friend?: No Do you have trouble with day-to-day activities such as bathing, preparing meals, shopping, managing finances, etc.?: No Are you currently unemployed and looking for a job?: No Are you interested in more education?: No THRIVE Score: 0 GAB-7 AMB Questionnaire GAB-7 Date GAB - 7 assessed: 02/10/24 Source: Developed by Drs. Kayden Grajeda, Anat Elkins, Bacilio Wing and colleagues, with an educational amy from [employer] Review of Systems Const Denies headache(s), Denies lethargy and Denies weakness Eyes Details: Sees Dr. Blackwell Reports no additional complaints ENT Denies dizziness, Denies headache(s) and Denies nasal congestion Card Denies chest pain, Denies chest pain with activity, Denies syncope, Denies rapid heart rate, Denies pedal edema, Denies lightheadedness, Denies palpitations and Denies dyspnea Resp Denies cough and Denies dyspnea GI Denies hematochezia and Denies change in stool character Denies urinary frequency, Denies difficulty voiding, Denies nocturia, Denies urinary incontinence and Denies urinary urgency Musc Details: no hx of fracture Denies abnormal gait, Denies muscle weakness, Denies numbness, Denies radiating pain into limb and Denies tingling Skin/Breast Denies rash Neuro Denies abnormal gait, Denies dizziness, Denies syncope, Denies headache(s), Denies numbness, Denies tingling and Denies weakness Psych Reports no additional complaints Endo Denies palpitations Jin/Lymph Reports no additional complaints Aller/Immun Reports no additional complaints Physical exam (Primary Care) Vital Signs: Last Vital Signs Temp 98.6 F 03/11/25 14:56 Pulse 87 03/11/25 14:56 Resp 15 03/11/25 14:56 BP 128/60 03/11/25 14:56 Pulse Ox 97 03/11/25 14:56 Oxygen Delivery Method Room Air 03/11/25 14:56 BMI result Body Mass Index 32.4 BMI Assessment/Plan discussion: High BMI High, discussed plan: lifestyle, weight reduction, dietary and physical activity Tobacco/Smoking Status: Tobacco use Status Tobacco use date assessed 03/11/25 03/11/25 14:49 Patient Tobacco Use Status Never used Tobacco 03/11/25 14:49 Tobacco use type Cigarette 03/11/25 14:49 e-Cigarette/Vaping Use Never Used 03/11/25 14:49 Depression Screening Interpretation: Negative (Controlled on venlafaxine) Thrive Assessment: Date of Thrive Assessment Date Thrive assessed 08/20/24 03/11/25 14:49 Const Orientation/consciousness: patient oriented x3 HENMT General nose exam: Normal external nose present and No nasal discharge present Mouth: Normal oral and palatal mucosa present and moist mucous membranes Eyes General: appearance normal, both eyes and all related structures Neck Neck: Yes full ROM and Yes supple Resp Auscultation: clear to auscultation bilaterally Cardio Other: S1-S2 present regular rate and rhythm GI Other: Normal bowel sounds, soft, nontender, no mass palpated Back/Spine/Pelvis Back: No back tenderness Skin General skin exam: no rashes or lesions noted Neuro General: patient oriented x3, gait normal, moves all extremities, Normal light touch and pain sensation and no focal motor deficits Extrem General: Yes no joint enlargement, Yes no clubbing, cyanosis or edema, Yes no p edal edema, Yes no calf tenderness and Yes normal gait Psych Appearance: grossly normal Speech and movement: Normal speech and movement present Affect: normal affect Attitude: cooperative Thought process: Normal thought process present Results Reviewed Results Reviewed: Laboratory Tests 02/15/25 02/17/25 07:16 07:00 Estimat Average Glucose 123 Hemoglobin A1c % 5.9 Urine Creatinine 61.50 Urine Microalbumin 11.0 Microalb/Creat Ratio 17.8 donald: Indira Mckeon Age/Sex: 80/F : 1945 Unit#: [id number] Attend Dr: Briseyda Kramer MD Re02/15/25 Status: DEP [facility] Disch: SPEC : [id number] EDER: 02/15/25 STATUS: COMP REQ : [id number] RECD: 02/15/[address]: Briseyda Kramer MD COMP: 02/15/25 ENTERED: 02/15/[address]: ORDERED: Met Prof Fast, AST, ALT, Lipid Panel, Vitamin D 25-OH Test Result Flag Reference Sodium 142 135-145 mmol/L Potassium 4.3 3.3-5.1 mmol/L CL 105 96-108 mmol/L CO2 28 22-29 mmol/L Gap 13 12-20 BUN 12 9-16 mg/dL Creat 0.78 0.5-1.4 mg/dL eGFR > 60 Chronic Kidney Disease: Estimated GFR < 60 mL/mi n/1.73m2 Severe Kidney Disease: Estimated GFR < 15 mL/min/1.73m2 FBS 98 60-99 mg/dL CA 9.5 8.4-10.2 mg/dL AST (GOT) 32 H 5-31 U/L ALT (GPT) 26 0-31 U/L Triglyceride 172 H <150 mg/dL Desirable Triglyceride: less than 150 mg/dL Borderline High Triglyceride 150-199 mg/dL High Triglyceride: 200-499 mg/dL Very High Triglyceride: greater than or equal to 5OO mg/dL Cholesterol 196 <200 mg/dL Desirable Cholesterol: less than 200 mg/dL Borderline High Cholesterol: 200-239 mg/dL High Cholesterol: greater than 239 mg/dL LDL Calculated 108 H <100 mg/dL Desirable LDL: less than 100 mg/dL Near Optimal/Above Optimal LDL: 110-129 mg/dL Borderline High LDL: 130-159 mg/dL High LDL: 160-189 mg/dL Very High LDL: greater than or equal to 190 mg/dL HDL 54 >40 mg/dL Desirable HDL: greater than 40 mg/dL Note: This HDL assay may give artificially low results in patients with liver disease. Vitamin D 25-OH 45.3 >30 ng/mL Health Based Reference Values* < 20 ng/mL Deficient 20-30 ng/mL Insufficient > 30 ng/mL Sufficient Coding Level of Care Code Est Pt Level 4 (69481) Complex EM visit Add On G2211 Diagnoses Chronic migraine without aura without status migrainosus, not intractable G43.709 Status migrainosus presence: without status migrainosus Intractability: not intractable Depression, major, in remission F32.5 Type 2 diabetes mellitus without complication, without long-term current use of insulin E11.9 Dyslipidemia E78.5 Essential hypertension I10 Age-related osteoporosis without current pathological fracture M81.0 Osteoporosis type: age-related Presence of current pathological fracture: without current pathological fracture Additional Codes PHQ-9 - 42023 - PHQ-9 Billing: Yes ([id number]) Assessment & Plan Assessment & Plan (1) Chronic migraine without aura: Code(s): G43.709 - Chronic migraine without aura, not intractable, without status migrainosus Category: Medical Qualifiers: Status migrainosus presence: without status migrainosus Intractability: not intractable Qualified Code(s): G43.709 - Chronic migraine without aura, not intractable, without status migrainosus Plan: Currently being followed at [facility] neurology and started on sumatriptan, riboflavin and magnesium supplement (2) Depression, major, in remission: Code(s): F32.5 - Major depressive disorder, single episode, in full remission Category: Medical Plan: Continue venlafaxine 75 mg 1 tablet twice a day (3) Type 2 diabetes mellitus without complication, without long-term current use of insulin: Code(s): E11.9 - Type 2 diabetes mellitus without complications Category: Medical Plan: Continue metformin ER 500 mg 1 at bedtime, reinforced importance of following diabetic diet, and encouraged to do at least 30 minutes of moderate intensity exercise 3 to 4 times a week. See her back for follow-up in six-months after fasting labs (4) Dyslipidemia: Code(s): E78.5 - Hyperlipidemia, unspecified Category: Medical Plan: Reviewed recent fasting lipid levels with her, with LDL cholesterol still not at goal, will continue on current dose of rosuvastatin 10 mg once a day, and again emphasized shortness of following a low-cholesterol diet and getting regular exercise. Repeat another fasting lipid panel in six-month (5) Essential hypertension: Code(s): I10 - Essential (primary) hypertension Category: Medical Plan: Blood pressure at goal of less than 130/80. Continue with lisinopril 2.5 mg daily Reinforced importance of following a low sodium diet, getting regular exercise, and lowering stress levels. (6) Osteoporosis: Code(s): M81.0 - Age-related osteoporosis without current pathological fracture Category: Medical Qualifiers: Osteoporosis type: age-related Presence of current pathological fracture: without current pathological fracture Qualified Code(s): M81.0 - Age- related osteoporosis without current pathological fracture Plan: Currently on alendronate 70 mg once a week, has appointment for repeat bone density scan already scheduled for 03/13/2025 Orders: Orders Aspartate Amino Transferase 02/15/25 E11.9 - Type 2 diabetes mellitus without complications, E78.5 - Hyperlipidemia, unspecified, I10 - Essential (primary) hypertension, M81.0 - Age-related osteoporosis without current pathological fracture Alanine Aminotransferase 02/15/25 E11.9 - Type 2 diabetes mellitus without complications, E78.5 - Hyperlipidemia, unspecified, I10 - Essential (primary) hypertension, M81.0 - Age-related osteoporosis without current pathological fracture Basic Metabolic Panel Fasting 02/15/25 E11.9 - Type 2 diabetes mellitus without complications, E78.5 - Hyperlipidemia, unspecified, I10 - Essential (primary) hypertension, M81.0 - Age-related osteoporosis without current pathological fracture Vitamin D 25-OH Total 02/15/25 E11.9 - Type 2 diabetes mellitus without complications, E78.5 - Hyperlipidemia, unspecified, I10 - Essential (primary) hypertension, M81.0 - Age-related osteoporosis without current pathological fracture Hemoglobin A1c 02/15/25 E11.9 - Type 2 diabetes mellitus without complications, E78.5 - Hyperlipidemia, unspecified, I10 - Essential (primary) hypertension, M81.0 - Age-related osteoporosis without current pathological fracture Alanine Aminotransferase 09/04/25 E11.9 - Type 2 diabetes mellitus without complications, E78.5 - Hyperlipidemia, unspecified, I10 - Essential (primary) hypertension, M81.0 - Age-related osteoporosis without current pathological fracture Basic Metabolic Panel Fasting 09/04/25 E11.9 - Type 2 diabetes mellitus without complications, E78.5 - Hyperlipidemia, unspecified, I10 - Essential (primary) hypertension, M81.0 - Age-related osteoporosis without current pathological fracture Lipid Panel 09/04/25 E11.9 - Type 2 diabetes mellitus without complications, E78.5 - Hyperlipidemia, unspecified, I10 - Essential (primary) hypertension, M81.0 - Age-related osteoporosis without current pathological fracture Vitamin D 25-OH Total 09/04/25 E11.9 - Type 2 diabetes mellitus without complications, E78.5 - Hyperlipidemia, unspecified, I10 - Essential (primary) hypertension, M81.0 - Age-related osteoporosis without current pathological fracture Lipid Panel 02/15/25 E11.9 - Type 2 diabetes mellitus without complications, E78.5 - Hyperlipidemia, unspecified, I10 - Essential (primary) hypertension, M81.0 - Age-related osteoporosis without current pathological fracture Microalbumin, Random (w Creat) 02/17/25 E11.9 - Type 2 diabetes mellitus without complications, E78.5 - Hyperlipidemia, unspecified, I10 - Essential (primary) hypertension, M81.0 - Age-related osteoporosis without current pathological fracture Hemoglobin A1c 09/04/25 E11.9 - Type 2 diabetes mellitus without complications, E78.5 - Hyperlipidemia, unspecified, I10 - Essential (primary) hypertension, M81.0 - Age-related osteoporosis without current pathological fracture Aspartate Amino Transferase 09/04/25 E11.9 - Type 2 diabetes mellitus without complications, E78.5 - Hyperlipidemia, unspecified, I10 - Essential (primary) hypertension, M81.0 - Age-related osteoporosis without current pathological fracture
[2025-03-11 14:56] VITALS: BP 128/60; PULSE 87; RESP 15; TEMP 37; O2SAT 97; BMI 32.4
== END 2025-03-11 15:34 | disposition home or self-care (01) ==
PROVIDERS: PCP Internal Medicine; Visit Provider Internal Medicine
DX: G43.709 Chronic migraine without aura, not intractable, without status migrainosus (principal); F32.5 Major depressive disorder, single episode, in full remission; E11.9 Type 2 diabetes mellitus without complications; E78.5 Hyperlipidemia, unspecified; I10 Essential (primary) hypertension; M81.0 Age-related osteoporosis without current pathological fracture

== ENCOUNTER → 2025-03-11 14:13 | Outpatient (BNVA) | payer MEDICARE, SELFPAY | PROVIDERS: PCP Internal Medicine; Visit Provider Internal Medicine | DX: E11.9 Type 2 diabetes mellitus without complications (principal); M81.0 Age-related osteoporosis without current pathological fracture; I10 Essential (primary) hypertension; E78.5 Hyperlipidemia, unspecified; G43.709 Chronic migraine without aura, not intractable, without status migrainosus; F32.5 Major depressive disorder, single episode, in full remission; Z79.84 Long term (current) use of oral hypoglycemic drugs | CPT/HCPCS: 96127; 99212 ==

== ENCOUNTER → 2025-03-13 16:34 | Outpatient (BNV) | payer MEDICARE, SELFPAY | PROVIDERS: PCP Internal Medicine; Visit Provider Radiology Diagnostic Radiology | DX: R51.9 Headache, unspecified (principal) | CPT/HCPCS: 70553 ==

== ENCOUNTER 2025-03-13 16:35 | Outpatient (REF) | payer MEDICARE, SELFPAY ==
--- NOTE | ~2025-03-13 | MR_ITS ---
EXAMINATION: MR BRAIN WITHOUT THEN WITH IV CONTRAST HISTORY: R51.9 - Headache, unspecified TECHNIQUE: Sagittal T1, and axial T1, FLAIR, T2, gradient echo, and diffusion weighted MR images of the brain were obtained. Subsequently, axial and coronal T1-weighted images were obtained after the administration of intravenous gadolinium. 0.5 mL Gadavist was administered. COMPARISON: Correlation is made with an unenhanced head CT dated 08/23/2021. FINDINGS: There is diffuse prominence of the ventricular system and cortical sulci, consistent with atrophy. Monk/white differentiation is normal. There is no mass effect or midline shift. No intra or extra-axial fluid collections are identified. There are no foci of restricted diffusion. There is no abnormal contrast enhancement. Normal vascular flow voids are noted in the basilar and carotid arteries. The visualized paranasal sinuses are clear. MR/MR head/brain wo/w con IMPRESSION: No acute intracranial abnormality. The paranasal sinuses are clear. Electronically signed by: Kayden Augustine MD 03/15/2025 08:11 AM EDT
[2025-03-13] MEDS: gadobutroL 7.5 ML VIAL IVPUSH (17:24)
== END 2025-03-13 16:36 | disposition home or self-care (01) ==
LOC: HO.MRI 16:35
PROVIDERS: PCP Internal Medicine; Visit Provider Nurse Practitioner Family
DX: R51.9 Headache, unspecified (principal); J32.3 Chronic sphenoidal sinusitis
CPT/HCPCS: 70553; A9585

== ENCOUNTER 2025-07-16 07:28 | Outpatient (REF) | payer MEDICARE, SELFPAY ==
--- NOTE | ~2025-07-16 | MM_ITS ---
EXAMINATION: MM SCREENING DIGITAL BREAST TOMOSYNTHESIS, BILATERAL CLINICAL INFORMATION: Screening. Asymptomatic. COMPARISON: Comparison made to multiple prior, most recent July 10, 2024, and most remote May 16, 2021. TECHNIQUE: Digital breast tomosynthesis is performed in mediolateral oblique and craniocaudal views along with computer-aided detection (CAD). Synthesized 2D images are generated from the tomosynthesis. FINDINGS: BREAST COMPOSITION: There are scattered areas of fibroglandular density (ACR BI-RADS breast composition Category b). RIGHT BREAST: History of previous excisional biopsy. No significant masses, suspicious calcifications or other abnormalities are seen. LEFT BREAST: No significant masses, suspicious calcifications or other abnormalities are seen. MM/MM tomosynthesis screening BI IMPRESSION: BILATERAL BREASTS: Benign, no mammographic evidence of malignancy. Normal interval follow-up is recommended in 12 months. ASSESSMENT: BI-RADS 2 - Benign Findings RECOMMENDATION: Routine annual mammography screening. FOLLOW-UP: 1 year F/U This examination should not preclude the clinical evaluation of a suspicious palpable abnormality. This patient's information was entered into a reminder system with a target due date for their next mammogram. Electronically signed by: Fortunato Morton MD 07/20/2025 07:59 AM EDT
--- NOTE | ~2025-07-16 | MM_ITS ---
EXAMINATION: DXA BONE DENSITY AXIAL HISTORY: M81.0 - Age-related osteoporosis without current pathological fracture TECHNIQUE: Daixe Dual energy absorptiometry (DEXA) of the lumbar spine, total left hip, and femoral neck was performed. COMPARISON: Comparison is made with the prior examination dated 05/29/2023. FINDINGS: The bone mineral density of the lumbar spine is 1.132 g/cm2, corresponding to a T-score of -0.3, and a Z-score of 1.5. This is indicative of normal bone mineral density. This represents a BMD change of -6.8% compared to the prior exam. This is statistically significant. The bone mineral density of the left total hip is 0.972 g/cm2, corresponding to a T-score of -0.3, and a Z-score of 1.6. This is indicative of normal bone mineral density. This represents a BMD change of 6.5% compared to the prior exam. This is statistically significant. The bone mineral density of the left femoral neck is 0.828 g/cm2, corresponding to a T-score of -1.5, and a Z-score of 0.6. This is indicative of osteopenia. This represents a BMD change of 20.7% compared to the prior exam. FRACTURE RISK: The FRAX index suggests a ten year probability of major osteoporotic fracture of 7.5%, and of hip fracture 1.7%. MM/XR DEXA axial skeleton IMPRESSION: Based on bone mineral density, and according to World Health Organization (WHO) criteria, the diagnosis is consistent with osteopenia. Statistically, 68% of repeat scans fall within 1 SD (+/- 0.010 g/cm2 for AP spine L1-L4) and 1 SD (+/- 0.012 g/cm2 for femur total) FRAX is a trademark of the [employer] Metabolic Bone Disease, a World Health Organization (WHO) Collaborating Center. Electronically signed by: Kayden Augustine MD 07/16/2025 08:56 AM EDT
--- OUTSIDE RECORDS SUMMARY | 2025-07-16 07:31 | XMS_ITS | Clinical Summary ---
Author Organization [facility] Address [address] [place] [id number] Phone Care Team Providers Care Cook Helper Dessert Name Role Phone Briseyda Kramer MD Primary Care Provider Allergies No known active allergies Social History Tobacco Use Types Packs/Day Years Used Date Smoking Tobacco: Never Assessed Education Answer Date Recorded Are you interested in more education? Not on reba e 04/29/2024 Are you concerned about learning? Not on file 04/29/2024 No 04/29/2024 No 04/29/2024 Digital Access Answer Date Recorded No 04/29/2024 No 04/29/2024 Reliable internet access at home? Not on file 04/29/2024 Device with a working camera? Not on file Comments Unknown Sex and Gender Information Value Date Recorded Sex Assigned at Not on file Legal Sex Female 1:42 AM EDT Gender Identity Not on file Sexual Orientation Not on file Plan of Treatment Health Maintenance Due Date Last Done Comments LIPID PANEL 1945 DEPRESSION SCREENING 1959 SMOKING Hx and SMOKELESS TOBACCO SCREENING 01/04/1960 HEPATITIS C SCREENING 1965 PNEUMOCOCCAL VACCINES (50+ years) (1 of 1 - PCV) 1997 ZOSTER VACCINES (1 of 2) 1997 OSTEOPOROSIS SCREENING INITIAL (ONE-TIME) 01/04/2012 Adult Td,Tdap Booster 12/12/2021 12/12/2011 RSV VACCINE (1 - 1-dose 75+ series) 2022 COVID-19 VACCINE ( - 2023- season) 2024 INFLUENZA VACCINE (#1) 2025 9, 09/15/2018, 10/01/2017, Additional history exists HEPATITIS A VACCINES Aged Out No long er eligible based on patient's age to complete this topic HIB VACCINES Aged Out No longer eligi ble based on patient's age to complete this topic MENINGOCOCCAL VACCINES (ACWY) Aged Out No longer eligible based on patient's age to complete this topic MENINGOCOCCAL VACCINES (B) Aged Out N o longer eligible based on patient's age to complete this topic Medical Devices Not on file Insurance [employer] HMO REPLACEMENT MEDICARE PART A & B MEDICARE HMO REPLACEMENT MEDICARE PART A & B [employer] MED[employer] HMO REPLACEMENT MEDICARE PART A & B [employer] MED[employer] HMO REPLACEMENT MEDICARE PART A [place] [address] [place] [address] MEDICARE HMO REPLACEMENT MED[facility]ARE PART A & [facility] [place] [id number] [employer] MEDIC[employer] HMO REPLACEMENT MEDICARE PART A & B [facility] [place] [id number] [facility] [place] [id number] Care Teams Cook Helper Dessert Relationship Specialty Start Date End Date Briseyda Kramer MD [address] [id number] PCP - General Internal Medicine 08/26/23 Additional Source Comments The information contained in this document represents components of the legal health record. It is not the complete legal health record.[facility]
== END 2025-07-16 07:29 | disposition home or self-care (01) ==
LOC: HO.MAMMO 07:28
PROVIDERS: PCP Internal Medicine; Visit Provider Internal Medicine
DX: Z12.31 Encounter for screening mammogram for malignant neoplasm of breast (principal); M81.0 Age-related osteoporosis without current pathological fracture; Z79.83 Long term (current) use of bisphosphonates
CPT/HCPCS: 77063; 77067; 77080

== ENCOUNTER → 2025-07-16 08:15 | Outpatient (BNV) | payer MEDICARE, SELFPAY | PROVIDERS: PCP Internal Medicine; Visit Provider Radiology Diagnostic Radiology | DX: E28.39 Other primary ovarian failure (principal) | CPT/HCPCS: 77080 ==

== ENCOUNTER 2025-09-20 07:47 | Outpatient (REF) | payer MEDICARE, SELFPAY ==
--- OUTSIDE RECORDS SUMMARY | 2025-09-20 08:13 | XMS_ITS | Clinical Summary ---
Author Organization [facility] Address [address] [place] [id number] Phone Care Team Providers Care Education Supervisor Name Role Phone Briseyda Kramer MD Primary [...] VACCINE (1 - 1-dose 75+ series) 2022 INFLUENZA VACCINE (#1) 2025 , 09/15/2018, 10/01/2017, Additional history exists COVID-19 VACCINE (2024- season) 2025 HEPATITIS A VACCINES Aged Out No long er eligible based on patient's age to complete this topic HIB VACCINES Aged Out No longer eligi ble based on patient's age to complete this topic IPV VACCINES Aged Out No longer eligi ble based on patient's age to complete this topic MENINGOCOCCAL VACCINES (ACWY) Aged Out No longer eligible based on patient's age to complete this topic MENINGOCOCCAL VACCINES (B) Aged Out N o longer eligible based on patient's age to complete this topic Medical Devices Not on file Insurance MEDICARE HMO REPLACEMENT MEDICARE PART A & B MEDICARE HMO REPLACEMENT MEDICARE PART A & B [employer] MEDIC[place] HMO REPLACEMENT MEDICARE PART A & B MEDICARE HMO REPLACEMENT MEDICARE PART A & B MEDICARE HMO REPLACEMENT MEDICARE PART A & B [place] [employer] [place] MEDIC[place] HMO REPLACEMENT MEDICARE PART A [place] [id number] [facility] [phone] [place] Care Teams Education Supervisor Relationship Specialty Start Date End Date Briseyda Kramer MD [address] [facility] [place] [id number] PCP - General Internal Medicine 08/26/23 Additional Source Comments The information contained in this document represents components of the legal health record. It is not the complete legal health record.[facility]
[2025-09-20 10:49] LABS: Alanine Aminotransferase 32 U/L (0-31); Anion Gap 14 (12-20); Aspartate Amino Transferase 40 U/L (5-31); Blood Urea Nitrogen 16 mg/dL (9-16); Calcium 9.2 mg/dL (8.4-10.2); Carbon Dioxide 28 mmol/L (22-29); Chloride 105 mmol/L (96-108); Cholesterol 163 mg/dL (<200); Estimated Glomerular Filt Rate > 60; HDL Cholesterol 52 mg/dL (>40); Potassium 4.5 mmol/L (3.3-5.1); Sodium 142 mmol/L (135-145); Triglycerides 88 mg/dL (<150)
== END 2025-09-20 07:48 | disposition home or self-care (01) ==
LOC: HO.HMGCLDS 07:47
PROVIDERS: PCP Internal Medicine; Visit Provider Internal Medicine
DX: M81.0 Age-related osteoporosis without current pathological fracture (principal); I10 Essential (primary) hypertension; E11.9 Type 2 diabetes mellitus without complications; E78.5 Hyperlipidemia, unspecified
CPT/HCPCS: 36415; 80048; 80061; 82306; 83036; 84450; 84460

== ENCOUNTER 2025-09-22 08:11 | Outpatient (AMB) | payer MEDICARE, SELFPAY ==
[2025-09-22 09:02] VITALS: BP 112/60; PULSE 86; RESP 16; TEMP 36.9; O2SAT 98; BMI 31.0
--- NOTE | 2025-09-22 09:02 | A.OFFPC_ITS ---
Vital Signs 09/22/25 09:02 Height 5 ft Weight 159 lb BMI 31.0 BP 112/60 Blood Pressure Location Lt brachial Position Sitting Respiration 16 Pulse 86 Pulse Source Pulse Oximeter Temp 98.4 F Temp Source Oral Pulse Oximetry (%) 98 Oxygen Delivery Method Room Air Intake Visit Reasons: Annual Physical- see comments Intake Note: Pt is here today for her PE: last mammogram 07/16/25, bone denisty scan 07/16/25 Allergies naproxen (NAPROXEN) Allergy (Severe, Verified 09/22/25 09:28) ANGIOEDEMA, rash,swelling,SOB penicillin G (Penicillin G) Allergy (Intermediate, Verified 09/22/25 09:28) RASH tramadol Allergy (Intermediate, Verified 09/22/25 09:28) vomiting, headaches Medication List - Last Reconciled 09/22/25 by Briseyda Kramer MD albuterol sulfate 90 mcg/actuation 1 - 2 puffs inhalation QID PRN alendronate 70 mg PO QWEEK 3 months blood sugar diagnostic (FreeStyle Lite Strips) 1 strip miscellaneous DAILY lisinopril 2.5 mg PO DAILY magnesium oxide 400 mg PO BEDTIME 30 days metformin ER 500 mg PO BEDTIME riboflavin (vitamin B2) 400 mg PO DAILY 30 days rosuvastatin 10 mg PO DAILY sumatriptan succinate 50 - 100 mg orally at onset of headache, may repeat in 2 hrs PRN; max 2 tabs per day or 4 tabs/week (may take with Tylenol) 30 days venlafaxine 75 mg PO BID Tobacco use date assessed: 09/22/25 Fall risk assessment: No Falls in past year Last assessed Fall Risk: 09/22/25 Dental Screening Dental Screen Date: 09/22/25 Did you have a dental visit in the last 12 months?: Yes Did you have a dental problem in the last 6 months where you did not have access to dental care?: No Was dental information given to patient?: Patient has dentist HPI Annual Physical- see comments HPI Details 80-year-old lady with past medical histo ry significant for hypertension, migraine headache, osteoporosis, depression in remission, type 2 d iabetes mellitus without insulin use, dyslipidemia, here today for her physical exam. She reports worsening depression over the last couple of months, noting that her current medication, venlafaxine, which she takes twice daily, is no longer effective. She has no history of other medications for depression but sometimes finds relaxing teas helpful. The patient has never seen a psychiatrist or a therapist. The patient's type 2 diabetes mellitus is well-controlled, with a recent hemoglobin A1c of 6.2% and no microalbuminuria as of September 2025. Her diabetic retinopathy screening in January 2025 showed no retinopathy. She takes metformin at night, and while her blood sugar is slightly higher than in February, her kidney function remains within normal limits She had a bone density scan on July 16, 2025, showed improvement from osteoporosis to osteopenia in the left hip and normal bone density in the lumbar spine. Her vitamin D level is on the low end of normal. Her cholesterol is well-managed on rosuvastatin 10 mg daily, with recent labs showing normal levels after a dose increase, and she denies any muscle pain. A screening mammogram on July 16, 2025, also had normal findings. The patient reports a new, sometimes painful, lump on her neck. Socially, the patient lives alone and expresses feelings of fear and loneliness. Constantly worrying about son who lives in [place], and is currently on dialysis . The patient lives by herself since her . - She reports feeling scared and does no t like being alone. - Family: She has two sons, one in [facility] and another in [place]. - Her family is scattered, and she has a sick sister in [place]. - She is considering selling her house t o move closer to her family. - Social Support: She attends orthodoxy and has a community there. - She does not go to the senior center. - Exercise: Reports a possible lack of e xercise. - Advance Directives: The patient has a healthcare proxy. [facility]LY [facility], [facility] Medical History (Updated 09/22/25 @ 09:57 by Briseyda Kramer MD) Osteopenia of multiple sites History of osteoporosis Depression with anxiety Sphenoid sinusitis Osteoporosis Sialoadenitis of submandibular gland Type 2 diabetes mellitus without complication, without long-term current use of insulin Dyslipidemia Essential hypertension Surgical History History of breast biopsy History of total abdominal hysterectomy Family History Father CVD (cardiovascular disease) Mother CVD (cardiovascular disease) Maternal Aunt Breast cancer Sister Hypertension Son Asthma Son Bipolar 1 disorder Sister Diabetes Social History (Updated 10/03/25 @ 18:24 by Briseyda Kramer MD) Household Members: None Housing: Apartment Alcohol intake: former Patient Tobacco Use Status: Never used Tobacco e-Cigarette/Vaping Use: Never Used Second Hand Smoke Exposure: No service: No Current occupational status: retired Cognitive needs: No Hearing needs: No Vision needs: Yes Questionnaire PHQ-9 Over the last 2 weeks, how often have you been bothered by any of the following problems? 1. Little interest or pleasure in doing things: not at all 2. Feeling down, depressed, or hopeless: not at all 3. Trouble falling or staying asleep, or sleeping too much: not at all 4. Feeling tired or having little energy: several days 5. Poor appetite or overeating: not at all 6. Feeling bad about yourself - or that you are a failure or have let yourself or your family down: not at all 8. Moving or speaking so slowly that other people could have noticed. Or the opposite - being so fidgety or restless that you have been moving around a lot more than usual: not at all 9. Thoughts that you would be better off or of hurting yourself in some way: not at all Source: Developed by Drs. Kayden Grajeda, Anat Elkins, Bacilio Wing and colleagues, with an educational amy from [employer]. Thrive Questionnaire Date Thrive assessed: 03/11/25 I am a: Patient What is your living situation today?: I have a steady place to live Within the past 12 months, did the food you bought not last and you didn't have the money to get more?: Never true Within the past 12 months, did you worry whether your food would run out before you got money to buy more?: Often true Do you have trouble paying for medicines?: Yes Do you have trouble getting transportation to medical appointments?: No Do you have trouble paying your heating and electricity bill?: Yes Do you have trouble taking care of your child, family member or friend?: No Do you have trouble with day-to-day activities such as bathing, preparing meals, shopping, managing finances, etc.?: No Are you currently unemployed and looking for a job?: No Are you interested in more education?: No Currently or been in a relationship where the following occur: No concerns reported THRIVE Score: 2 AUDIT C Alcohol Use Questionnaire (AUDIT-C) 1. How often do you have a drink containing alcohol?: Never 3. How often do you have six or more drinks on one occasion?: Never Total Score: 0 GAB-7 AMB Questionnaire GAB-7 Date GAB - 7 assessed: 09/22/25 Feeling nervous, anxious, or on edge: 0 = Not at all Not being able to stop or control worryin = Not at all Worrying too much about different things: 0 = Not at all Trouble relaxin = Several days Being so restless that it is hard to sit still: 0 = Not at all Becoming easily annoyed or irritable: 0 = Not at all Feeling afraid as if something awful might happen: 0 = Not at all Total GAB-7 score (0-4 normal; 5-9 mild; 10-14 moderate; 15-21 severe): 1 Source: Developed by Drs. Kayden Grajeda, Anat Elkins, Bacilio Wing and colleagues, with an educational amy from [employer]. Physical exam (Primary Care) Vital Signs: Last Vital Signs Temp 98.4 F 09/22/25 09:02 Pulse 86 09/22/25 09:02 Resp 16 09/22/25 09:02 BP 112/60 09/22/25 09:02 Pulse Ox 98 09/22/25 09:02 Oxygen Delivery Method Room Air 09/22/25 09:02 BMI result Body Mass Index 31.0 Tobacco/Smoking Status: Tobacco use Status Tobacco use date assessed 09/22/25 09/22/25 09:08 Patient Tobacco Use Status Never used Tobacco 09/22/25 09:08 Tobacco use type Cigarette 09/22/25 09:08 e-Cigarette/Vaping Use Never Used 09/22/25 09:08 PHQ-9: PHQ-9 Score PHQ-9: Total score 1 09/22/25 09:08 Thrive Assessment: Date of Thrive Assessment Date Thrive assessed 03/11/25 09/22/25 09:08 Currently or been in a relationship where the following occur: No concerns reported Results Reviewed Results Reviewed: Laboratory Tests 09/20/25 07:58 Estimat Average Glucose 131 Hemoglobin A1c % 6.2 H Name: Indira Mckeon Age/Sex: 80/F : 1945 Unit#: [id number] Attend Dr: Briseyda Kramer MD Re09/20/25 Status: DEP REF Location: [facility] Disch: SPEC : [id number] EDER: 09/20/25 STATUS: COMP REQ : [id number] RECD: 09/20/[address]: Briseyda Kramer MD COMP: 09/20/25 ENTERED: 09/20/[address]: ORDERED: Met Prof Fast, AST, ALT, Lipid Panel, Vitamin D 25-OH Test Result Flag Reference Sodium 142 135-145 mmol/L Potassium 4.5 3.3-5.1 mmol/L CL 105 96-108 mmol/L CO2 28 22-29 mmol/L Gap 14 12-20 BUN 16 9-16 mg/dL Creat 0.84 0.5-1.4 mg/dL eGFR > 60 Chronic Kidney Disease: Estimated GFR < 60 mL/min/1.73m2 Severe Kidney Disease: Estimated GFR < 15 mL/min/1.73m2 FBS 103 H 60-99 mg/dL A fasting glucose from 100-125 mg/dl is considered impaired (pre-diabetes). CA 9.2 8.4-10.2 mg/dL AST (GOT) 40 H 5-31 U/L ALT (GPT) 32 H 0-31 U/L Triglyceride 88 <150 mg/dL Desirable Triglyceride: less than 150 mg/dL Borderline High Triglyceride 150-199 mg/dL High Triglyceride: 200-499 mg/dL Very High Triglyceride: greater than or equal to 5OO mg/dL Cholesterol 163 <200 mg/dL Desirable Cholesterol: less than 200 mg/dL Borderline High Cholesterol: 200-239 mg/dL High Cholesterol: greater than 239 mg/dL LDL Calculated 94 <100 mg/dL Desirable LDL: less than 100 mg/dL Near Optimal/Above Optimal LDL: 110-129 mg/dL Borderline High LDL: 130-159 mg/dL High LDL: 160-189 mg/dL Very High LDL: greater than or equal to 190 mg/dL HDL 52 >40 mg/dL Desirable HDL: greater than 40 mg/dL Note: This HDL assay may give artificially low results in patients with liver disease. Vitamin D 25-OH 30.4 >30 ng/mL Health Based Reference Values* < 20 ng/mL Deficient 20-30 ng/mL Insufficient > 30 ng/mL Sufficient Coding Level of Care Code Est Pt Prev Care >65y(27187) Diagnoses Annual visit for general adult medical examination with abnormal findings Z00.01 Lymphadenopathy of left cervical region R59.0 Depression with anxiety F41.8 Essential hypertension I10 Dyslipidemia E78.5 Type 2 diabetes mellitus without complication, without long-term current use of insulin E11.9 Osteopenia of multiple sites M85.89 Chronic migraine without aura without status migrainosus, not intractable G43.709 Intractability: not intractable Status migrainosus presence: without status migrainosus Assessment & Plan Assessment & Plan (1) Annual visit for general adult medical examination with abnormal findings: Code(s): Z00.01 - Encounter for general adult medical examination with abnormal findings Plan: Fasting lab results reviewed with patient. Continue with regular dental visit every six-months, and yearly diabetes retinopathy screening. She was advised to continue with weight-bearing exercises, continue taking adequate calcium from dietary sources continue alendronate and vitamin-D 3 supplements. to help maintain good muscle tone and weight control. Instructed to do self-breast exam, and continue to get yearly mammogram. Repeat bone density scan due again in 2026, last Cologuard test in 2021 came back with negative findings. Repeat Cologuard testing ordered (2) Lymphadenopathy of left cervical region: Code(s): R59.0 - Localized enlarged lymph nodes Plan: The patient reports a new, sometimes tender lump in her neck, though it was not definitively palpated on exam. An ultrasound of the neck will be ordered to further evaluate this finding. (3) Depression with anxiety: Code(s): F41.8 - Other specified anxiety disorders Category: Medical Plan: The patient reports worsening depression and anxiety, with her current regimen of venlafaxine 75 mg twice daily no longer being effective. She will continue the venlafaxine for now, with a plan to slowly wean her off. A referral will be made to a nurse psychiatrist for further evaluation and medication management, as well as to the mental health coordinator for assistance in arranging therapy. (4) Essential hypertension: Code(s): I10 - Essential (primary) hypertension Category: Medical Plan: Blood pressure at goal of less than 130/80. Continue with lisinopril 2.5 mg daily. Reinforced importance of following a low sodium diet, getting regular exercise, and lowering stress levels. (5) Dyslipidemia: Code(s): E78.5 - Hyperlipidemia, unspecified Category: Medical Plan: Reviewed recent fasting lipid profile with patient with levels within normal limits . Continue rosuvastatin 10 mg daily , in addition to adherence to low-cholesterol diet and regular exercise, at least 30 minutes 3 to 4 times a week. Advised patient to make healthy food choices, eat more fruits, vegetables, whole grains, wild caught fish and low-fat dairy. Limit amount of meat and fried or fatty food products, as well as processed foods and fast foods. Follow-up scheduled with repeat fasting lipid panel in January 2026 (6) Type 2 diabetes mellitus without complication, without long-term current use of insulin: Code(s): E11.9 - Type 2 diabetes mellitus without complications Category: Medical Plan: Diabetes mellitus well controlled with metformin ER 500 mg taken 1 tablet at night. Despite a slight upward trend in her sugar levels, which may be due to lack of exercise, her kidney function remains normal, and she has no retinopathy. She will continue her current dose of metformin. (7) Osteopenia of multiple sites: Code(s): M85.89 - Other specified disorders of bone density and structure, multiple sites Category: Medical Plan: Continued on alendronate 70 mg once a week. (8) Chronic migraine without aura: Code(s): G43.709 - Chronic migraine without aura, not intractable, without status migrainosus Category: Medical Qualifiers: Intractability: not intractable Status migrainosus presence: without status migrainosus Qualified Code(s): G43.709 - Chronic migraine without aura, not intractable, without status migrainosus Plan: Currently on sumatriptan takes as needed Orders: Orders US soft tiss head and/or neck 09/22/25 R59.0 - Localized enlarged lymph nodes Referrals Cologuard Test Z12.11 - Encounter for screening for malignant neoplasm of colon, Z12.12 - Encounter for screening for malignant neoplasm of rectum Psychiatry Referral F41.8 - Other specified anxiety disorders
--- OUTSIDE RECORDS SUMMARY | 2025-09-22 15:45 | XMS_ITS | Clinical Summary ---
Author Organization [facility] Address [address] [place] [phone] Phone Care Team Providers Care Medical Staff Manager Name Role Phone Briseyda Kramer MD Primary [...] MEDICARE PART A & [place] [employer] MEDIC[place] HMO REPLACEMENT [place] [address] [facility] [place] [address] [place] Care Teams Medical Staff Manager Relationship Specialty Start Date End Date Briseyda Kramer MD [address] [facility] [place] [id number] PCP - General Internal Medicine 08/26/23 Additional Source Comments The information contained in this document represents components of the legal health record. It is not the complete legal health record.[facility]
== END 2025-09-22 10:09 | disposition home or self-care (01) ==
LOC: HO.HMCC 08:11
PROVIDERS: PCP Internal Medicine; Visit Provider Internal Medicine
DX: Z00.01 Encounter for general adult medical examination with abnormal findings (principal); E11.9 Type 2 diabetes mellitus without complications; R59.0 Localized enlarged lymph nodes; F41.8 Other specified anxiety disorders; I10 Essential (primary) hypertension; E78.5 Hyperlipidemia, unspecified; M85.89 Other specified disorders of bone density and structure, multiple sites; G43.709 Chronic migraine without aura, not intractable, without status migrainosus

== ENCOUNTER → 2025-09-22 08:11 | Outpatient (BNVA) | payer MEDICARE, SELFPAY | PROVIDERS: PCP Internal Medicine; Visit Provider Internal Medicine | DX: Z00.01 Encounter for general adult medical examination with abnormal findings (principal); R59.0 Localized enlarged lymph nodes; F41.8 Other specified anxiety disorders; I10 Essential (primary) hypertension; E11.9 Type 2 diabetes mellitus without complications; E78.5 Hyperlipidemia, unspecified; M85.89 Other specified disorders of bone density and structure, multiple sites; G43.709 Chronic migraine without aura, not intractable, without status migrainosus | CPT/HCPCS: 96127; 99397 ==

== ENCOUNTER 2025-10-27 09:19 | Outpatient (AMB) | payer MEDICARE, SELFPAY ==
--- OUTSIDE RECORDS SUMMARY | 2025-10-27 09:24 | XMS_ITS | Clinical Summary ---
Author Organization [facility] Address [address] [place] [phone] Phone Care Team Providers Care Theology Professor Name Role Phone Briseyda Kramer MD Primary [...] HMO REPLACEMENT MEDICARE PART A & [place] [address] [address] MEDICARE HMO REPLACEMENT MEDICARE PART A & [facility] [place] [address] [employer] MEDIC[place] HMO REPLACEMENT MEDICARE PART A & B [facility] [place] [address] [facility] [place] [address] Care Teams Theology Professor Relationship Specialty Start Date End Date Briseyda Kramer MD [address] [place] [id number] PCP - General Internal Medicine 08/26/23 Additional Source Comments The information contained in this document represents components of the legal health record. It is not the complete legal health record.[facility]
[2025-10-27 09:57] VITALS: BP 132/64; PULSE 85; RESP 16; TEMP 37.1; O2SAT 96; BMI 31.2
--- NOTE | 2025-10-27 09:57 | A.OFFPC_ITS ---
Vital Signs 10/27/25 09:57 Height 5 ft Weight 160 lb BMI 31.2 BP 132/64 Blood Pressure Location Lt brachial Position Sitting Respiration 16 Pulse 85 Pulse Source Pulse Oximeter Temp 98.8 F Temp Source Oral Pulse Oximetry (%) 96 Oxygen Delivery Method Room Air Intake Visit Reasons: anxiety med adjustment Intake Note: Pt is here today to adjust anxiety medication Electrical Instrument Technician Required: No Allergies naproxen (NAPROXEN) Allergy (Severe, Verified 11/04/25 23:15) ANGIOEDEMA, rash,swelling,SOB penicillin G (Penicillin G) Allergy (Intermediate, Verified 11/04/25 23:15) RASH tramadol Allergy (Intermediate, Verified 11/04/25 23:15) vomiting, headaches Medication List - Last Reconciled 11/04/25 by Briseyda Kramer MD albuterol sulfate 90 mcg/actuation 1 - 2 puffs inhalation QID PRN alendronate 70 mg PO QWEEK 3 months blood sugar diagnostic (FreeStyle Lite Strips) 1 strip miscellaneous DAILY lisinopril 2.5 mg PO DAILY magnesium oxide 400 mg PO BEDTIME 30 days metformin ER 500 mg PO BEDTIME riboflavin (vitamin B2) 400 mg PO DAILY 30 days rosuvastatin 10 mg PO DAILY sumatriptan succinate 50 - 100 mg orally at onset of headache, may repeat in 2 hrs PRN; max 2 tabs per day or 4 tabs/week (may take with Tylenol) 30 days venlafaxine 75 mg PO BID Tobacco use date assessed: 10/27/25 Fall risk assessment: No Falls in past year Last assessed Fall Risk: 10/27/25 Dental Screening Dental Screen Date: 10/27/25 Did you have a dental visit in the last 12 months?: Yes Did you have a dental problem in the last 6 months where you did not have access to dental care?: No Was dental information given to patient?: Patient has dentist HPI anxiety med adjustment HPI Details The patient is a 80-year-old female presenting for a follow-up visit Has history of osteoporosis started on alendronate a year ago, but last bone density scan done July 2025 showed presence now of osteopenia . She has diabetes mellitus, with latest fasting blood sugar of 103 and an average sugar level (A1c) that is higher than it was in February, which is thought to be due to a lack of exercise. She takes metformin 500 mg once a day. Her cholesterol has improved significantly while on rosuvastatin. Her vitamin D level is borderline normal. A brain MRI ordered by her sleep neurologist was normal. She is scheduled for an ultrasound on November 16 for an enlarged lymph node. For health maintenance, the patient is up to date with her flu, shingles, and pneumonia vaccines, but her tetanus vaccination has . She has an upcoming diabetic eye exam in November and a mammogram in July. [facility] Medical History (Updated 10/27/25 @ 10:28 by Briseyda Kramer MD) Osteopenia of multiple sites History of osteoporosis Depression with anxiety Sphenoid sinusitis Osteoporosis Sialoadenitis of submandibular gland Type 2 diabetes mellitus without complication, without long-term current use of insulin Dyslipidemia Essential hypertension Surgical History History of breast biopsy History of total abdominal hysterectomy Family History Father CVD (cardiovascular disease) Mother CVD (cardiovascular disease) Maternal Aunt Breast cancer Sister Hypertension Son Asthma Son Bipolar 1 disorder Sister Diabetes Social History Household Members: None Housing: Apartment Alcohol intake: former Patient Tobacco Use Status: Never used Tobacco e-Cigarette/Vaping Use: Never Used Second Hand Smoke Exposure: No service: No Current occupational status: retired Cognitive needs: No Hearing needs: No Vision needs: Yes Questionnaire PHQ-9 Over the last 2 weeks, how often have you been bothered by any of the following problems? 1. Little interest or pleasure in doing things: several days 2. Feeling down, depressed, or hopeless: several days 3. Trouble falling or staying asleep, or sleeping too much: several days 4. Feeling tired or having little energy: several days 5. Poor appetite or overeating: not at all 6. Feeling bad about yourself - or that you are a failure or have let yourself or your family down: several days 7. Trouble concentrating on things, such as reading the newspaper or watching television: several days 8. Moving or speaking so slowly that other people could have noticed. Or the opposite - being so fidgety or restless that you have been moving around a lot more than usual: several days 9. Thoughts that you would be better off or of hurting yourself in some way: not at all Total score: 7 Depression Screening Interpretation: Negative Depression Screening Done: Yes Source: Developed by Drs. Kayden Grajeda, Anat Elkins, Bacilio Wing and colleagues, with an educational amy from [email or web address]. Thrive Questionnaire Date Thrive assessed: 09/15/25 I am a: Patient What is your living situation today?: I have a steady place to live Within the past 12 months, did the food you bought not last and you didn't have the money to get more?: Never true Within the past 12 months, did you worry whether your food would run out before you got money to buy more?: Often true Do you have trouble paying for medicines?: Yes Do you have trouble getting transportation to medical appointments?: No Do you have trouble paying your heating and electricity bill?: Yes Do you have trouble taking care of your child, family member or friend?: No Do you have trouble with day-to-day activities such as bathing, preparing meals, shopping, managing finances, etc.?: No Are you currently unemployed and looking for a job?: No Are you interested in more education?: No Currently or been in a relationship where the following occur: No concerns reported THRIVE Score: 2 GAB-7 AMB Questionnaire GAB-7 Date GAB - 7 assessed: 10/27/25 Feeling nervous, anxious, or on edge: 1 = Several days Not being able to stop or control worryin = Several days Worrying too much about different things: 1 = Several days Trouble relaxin = Several days Being so restless that it is hard to sit still: 1 = Several days Becoming easily annoyed or irritable: 1 = Several days Feeling afraid as if something awful might happen: 1 = Several days Total GAB-7 score (0-4 normal; 5-9 mild; 10-14 moderate; 15-21 severe): 7 Source: Developed by Drs. Kayden Grajeda, Anat Elkins, Bacilio Wing and colleagues, with an educational amy from [email or web address]. GAB-7 Assessment Billing GAB-7 Assessment Tool: GAB-7 Assessment 44683 Review of Systems Const Denies headache(s), Denies lethargy and Denies weakness Eyes Details: Sees Dr. Blackwell Reports no additional complaints ENT Denies dizziness, Denies headache(s) and Denies nasal congestion Card Denies chest pain, Denies rapid heart rate, Denies lightheadedness, Denies palpitations and Denies dyspnea Resp Denies cough and Denies dyspnea Denies urinary frequency and Denies difficulty voiding Musc Details: no hx of fracture Denies abnormal gait, Denies muscle weakness, Denies numbness, Denies radiating pain into limb and Denies tingling Skin/Breast Denies rash Neuro Denies abnormal gait, Denies dizziness, Denies headache(s), Denies numbness, Denies tingling and Denies weakness Psych Reports no additional complaints Endo Denies palpitations Jin/Lymph Reports no additional complaints Aller/Immun Reports no additional complaints Physical exam (Primary Care) Vital Signs: Last Vital Signs Temp 98.8 F 10/27/25 09:57 Pulse 85 10/27/25 09:57 Resp 16 10/27/25 09:57 BP 132/64 10/27/25 09:57 Pulse Ox 96 10/27/25 09:57 Oxygen Delivery Method Room Air 10/27/25 09:57 BMI result Body Mass Index 31.2 Tobacco/Smoking Status: Tobacco use Status Tobacco use date assessed 10/27/25 10/27/25 10:03 Patient Tobacco Use Status Never used Tobacco 10/27/25 10:03 Tobacco use type 10/04/25 16:51 e-Cigarette/Vaping Use Never Used 10/27/25 10:03 PHQ-9: PHQ-9 Score PHQ-9: Total score 7 10/27/25 10:19 Depression Screening Interpretation: Negative Thrive Assessment: Date of Thrive Assessment Date Thrive assessed 09/15/25 10/27/25 10:03 Currently or been in a relationship where the following occur: No concerns reported Const Orientation/consciousness: patient oriented x3 HENMT General nose exam: Normal external nose present Mouth: Normal oral and palatal mucosa present and moist mucous membranes Eyes General: appearance normal, both eyes and all related structures Neck Neck: Yes full ROM and Yes supple Resp Auscultation: clear to auscultation bilaterally Cardio Other: S1-S2 present regular rate and rhythm GI Other: Normal bowel sounds, soft, nontender, no mass palpated Back/Spine/Pelvis Back: No back tenderness Skin General skin exam: no rashes or lesions noted Neuro General: patient oriented x3, gait normal, moves all extremities, Normal light touch and pain sensation and no focal motor deficits Extrem General: Yes no joint enlargement, Yes no clubbing, cyanosis or edema and Yes normal gait Psych Appearance: grossly normal Speech and movement: Normal speech and movement present Affect: normal affect Thought process: Normal thought process present Results Reviewed Results Reviewed: Laboratory Tests 02/17/25 09/20/25 07:00 07:58 Estimat Average Glucose 131 Hemoglobin A1c % 6.2 H Microalb/Creat Ratio 17.8 Name: Indira Mckeon Age/Sex: 80/F : 1945 Unit#: [id number] Attend Dr: Briseyda Kramer MD Re09/20/25 Status: DEP REF Location: [facility] Disch: SPEC : [id number] EDER: 09/20/25 STATUS: COMP REQ : [id number] RECD: 09/20/[address]: Briseyda Kramer MD COMP: 09/20/25 ENTERED: 09/20/[address]: ORDERED: Met Prof Fast, AST, ALT, Lipid Panel, Vitamin D 25-OH Test Result Flag Reference Sodium 142 135-145 mmol/L Potassium 4.5 3.3-5.1 mmol/L CL 105 96-108 mmol/L CO2 28 22-29 mmol/L Gap 14 12-20 BUN 16 9-16 mg/dL Creat 0.84 0.5-1.4 mg/dL eGFR > 60 Chronic Kidney Disease: Estimated GFR < 60 mL/min/1.73m2 Severe Kidney Disease: Estimated GFR < 15 mL/min/1.73m2 FBS 103 H 60-99 mg/dL A fasting glucose from 100-125 mg/dl is considered impaired (pre-diabetes). CA 9.2 8.4-10.2 mg/dL AST (GOT) 40 H 5-31 U/L ALT (GPT) 32 H 0-31 U/L Triglyceride 88 <150 mg/dL Desirable Triglyceride: less than 150 mg/dL Borderline High Triglyceride 150-199 mg/dL High Triglyceride: 200-499 mg/dL Very High Triglyceride: greater than or equal to 5OO mg/dL Cholesterol 163 <200 mg/dL Desirable Cholesterol: less than 200 mg/dL Borderline High Cholesterol: 200-239 mg/dL High Cholesterol: greater than 239 mg/dL LDL Calculated 94 <100 mg/dL Desirable LDL: less than 100 mg/dL Near Optimal/Above Optimal LDL: 110-129 mg/dL Borderline High LDL: 130-159 mg/dL High LDL: 160-189 mg/dL Very High LDL: greater than or equal to 190 mg/dL HDL 52 >40 mg/dL Desirable HDL: greater than 40 mg/dL Note: This HDL assay may give artificially low results in patients with liver disease. Vitamin D 25-OH 30.4 >30 ng/mL Health Based Reference Values* < 20 ng/mL Deficient 20-30 ng/mL Insufficient > 30 ng/mL Sufficient Coding Level of Care Code Est Pt Level 4 (41527) Diagnoses Essential hypertension I10 Dyslipidemia E78.5 Type 2 diabetes mellitus without complication, without long-term current use of insulin E11.9 Chronic migraine without aura without status migrainosus, not intractable G43.709 Intractability: not intractable Status migrainosus presence: without status migrainosus Depression with anxiety F41.8 Osteopenia of multiple sites M85.89 Additional Codes GAB-7 Assessment Billing - GAB-7 Assessment Tool: GAB-7 Assessment 86770 ([id number]) Assessment & Plan Assessment & Plan (1) Essential hypertension: Code(s): I10 - Essential (primary) hypertension Category: Medical Plan: Blood pressure at goal of less than 130/80. Continue lisinopril 2.5 mg daily (2) Dyslipidemia: Code(s): E78.5 - Hyperlipidemia, unspecified Category: Medical Plan: Fasting lipids are within normal limits, currently on rosuvastatin 10 mg daily (3) Type 2 diabetes mellitus without complication, without long-term current use of insulin: Code(s): E11.9 - Type 2 diabetes mellitus without complications Category: Medical Plan: Diabetes mellitus controlled with metformin ER 500 mg taken at bedtime. Reminded to get yearly diabetes eye screening, (4) Chronic migraine without aura: Code(s): G43.709 - Chronic migraine without aura, not intractable, without status migrainosus Category: Medical Qualifiers: Intractability: not intractable Status migrainosus presence: without status migrainosus Qualified Code(s): G43.709 - Chronic migraine without aura, not intractable, without status migrainosus Plan: Takes sumatriptan succinate as needed for migraine headaches continued magnesium oxide 400 mg at bedtime and (5) Depression with anxiety: Code(s): F41.8 - Other specified anxiety disorders Category: Medical Plan: Controlled on venlafaxine 75 mg taken 1 tablet twice a day (6) Osteopenia of multiple sites: Code(s): M85.89 - Other specified disorders of bone density and structure, multiple sites Category: Medical Plan: Improving bone density, continued on alendronate mg once a week for 4 more years Orders: Orders Complete Blood Count Auto Diff 02/05/26 F41.8 - Other specified anxiety disorders, I10 - Essential (primary) hypertension, E78.5 - Hyperlipidemia, unspecified, E11.9 - Type 2 diabetes mellitus without complications, M85.89 - Other specified disorders of bone density and structure, multiple sites Aspartate Amino Transferase 02/05/26 F41.8 - Other specified anxiety disorders, I10 - Essential (primary) hypertension, E78.5 - Hyperlipidemia, unspecified, E11.9 - Type 2 diabetes mellitus without complications, M85.89 - Other specified disorders of bone density and structure, multiple sites Vitamin D 25-OH Total 02/05/26 F41.8 - Other specified anxiety disorders, I10 - Essential (primary) hypertension, E78.5 - Hyperlipidemia, unspecified, E11.9 - Type 2 diabetes mellitus without complications, M85.89 - Other specified disorders of bone density and structure, multiple sites Hemoglobin A1c 02/05/26 F41.8 - Other specified anxiety disorders, I10 - Essential (primary) hypertension, E78.5 - Hyperlipidemia, unspecified, E11.9 - Type 2 diabetes mellitus without complications, M85.89 - Other specified disorders of bone density and structure, multiple sites Basic Metabolic Panel Fasting 02/05/26 F41.8 - Other specified anxiety disorde rs, I10 - Essential (primary) hypertension, E78.5 - Hyperlipidemia, unspecified, E11.9 - Type 2 diabetes mellitus without complications, M85.89 - Other specified disorders of bone density and structure, multiple sites Alanine Aminotransferase 02/05/26 F41.8 - Other specified anxiety disorders, I10 - Essential (primary) hypertension, E78.5 - Hyperlipidemia, unspecified, E 11.9 - Type 2 diabetes mellitus without complications, M85.89 - Other specified disorders of bone density and structure, multiple sites Lipid Panel 02/05/26 F41.8 - Other specified anxiety disorders, I10 - Essential (primary) hypertension, E78.5 - Hyperlipidemia, unspecified, E11.9 - Type 2 diabetes mellitus without complications, M85.89 - Other specified disorders of bone density and structure, multiple sites Microalbumin, Random (w Creat) 02/05/26 F41.8 - Other specified anxiety disorders, I10 - Essential (primary) hypertension, E78.5 - Hyperlipidemia, unspecified, E11.9 - Type 2 diabetes mellitus without complications, M85.89 - Other specified disorders of bone density and structure, multiple sites Medications: Refilled lisinopril 2.5 mg PO DAILY 90 tabs 1RF metformin ER 500 mg PO BEDTIME 90 tabs 1RF rosuvastatin 10 mg PO DAILY 90 tabs 1RF venlafaxine 75 mg PO BID 180 tabs 4RF F32.0 - Major depressive disorder, single episode, mild alendronate Take in the morning an hour before breakfast or lunch only with a full glass of water, do not eat or drink after taking the medicine for an hour and do not lie down right away after taking the medication 70 mg PO QWEEK 13 tabs 4RF 3 months
== END 2025-10-27 10:28 | disposition home or self-care (01) ==
LOC: HO.HMCC 09:19
PROVIDERS: PCP Internal Medicine; Visit Provider Internal Medicine
DX: I10 Essential (primary) hypertension (principal); E78.5 Hyperlipidemia, unspecified; E11.9 Type 2 diabetes mellitus without complications; G43.709 Chronic migraine without aura, not intractable, without status migrainosus; F41.8 Other specified anxiety disorders; M85.89 Other specified disorders of bone density and structure, multiple sites

== ENCOUNTER → 2025-10-27 09:19 | Outpatient (BNVA) | payer MEDICARE, SELFPAY | PROVIDERS: PCP Internal Medicine; Visit Provider Internal Medicine | DX: I10 Essential (primary) hypertension (principal); E11.9 Type 2 diabetes mellitus without complications; E78.5 Hyperlipidemia, unspecified; F41.8 Other specified anxiety disorders; M85.89 Other specified disorders of bone density and structure, multiple sites | CPT/HCPCS: 96127; 99212 ==